=== PATIENT | female | born 1970 | race Caucasian/White ===

== ENCOUNTER 2016-03-02 08:31 | Emergency (ER) | payer OTHER ==
[~2016-03-02] VITALS: Ht 158.8 cm; Wt 99.3 kg
[~2016-03-02 08:31] MED LIST: ACET-1256 PO; CYAN3INJ IM; DOXE10CA PO; ENAL10TA PO; ERGO500037 PO; FERR325T51 PO; HYDR-3126 PO; HYDR-3785 PO; IBUP-1105 PO; LEVO137T3 PO; METO25TA56 PO; MIRT45TA3 PO; NRN/300 PO; SUMA100T16 PO; VENL100T2 PO; VNTHFA/IN INH
[2016-03-02 08:36] VITALS: TEMP 36.5; Ht 158.8 cm; Wt 99.3 kg
--- NOTE | 2016-03-02 09:20 | DIAGNOSTIC IMAGING REPORT ---
LEFT SHOULDER 3 VIEWS HISTORY: Left shoulder pain. COMPARISON: None. FINDINGS: There is no fracture or dislocation. Soft tissues are unremarkable. The left clavicle is intact. IMPRESSION: No fracture or dislocation within the left shoulder. Electronically signed by: Miguel Kern M.D. 03/02/2016 9:18 AM Dictated Date/Time: 03/02/2016 9:17 AM
[2016-03-02] MEDS ORDERED: HYDR-5688 PO (09:40)
[2016-03-02 09:47] VITALS: BP 135/98; PULSE 86; O2SAT 95
--- NOTE | 2016-03-02 17:39 | EMERGENCY ROOM VISIT NOTE ---
ED Visit Note First contact with patient: 08:46 CHIEF COMPLAINT: Left Shoulder injury HISTORY OF PRESENT ILLNESS: This 46-year-old white female patient fell onto the left shoulder earlier today with immediate onset of pain. There is limitation of motion of the arm because of the pain. The patient did not hear a cracking the sound at the time of the injury. The pain is moderate, constant and increases with motion of the hand and arm. No previous significant shoulder disease or injury. [id number]. REVIEW OF SYSTEM: HEENT: No dizziness, visual problems, hearing loss, or tinnitus. There is no difficulty swallowing and no oral lesions are present PULMONARY: No cough, shortness of breath, sputum production or hemoptysis. CARDIOVASCULAR: No chest pain, palpitations, shortness of breath or peripheral edema. GASTROINTESTINAL: No diarrhea, constipation, nausea, vomiting, or abdominal pain. GENITOURINARY: No dysuria, frequency, urgency or nocturia. NEUROLOGIC: No weakness, muscle tenderness, epilepsy or history of neurological problems. Positive history of chronic headaches. MUSCULOSKELETAL: No history of joint tenderness/swelling. No history of arthritis or arthralgias. SKIN: No rashes or lesions. ENDOCRINE: No history of diabetes or abnormal hair growth. PMH: Significant for anxiety, hypertension, hypothyroidism, obesity, asthma, chronic back pain, migraines, and depression Previous surgeries: Gastric bypass, back surgery Current medications: Filed in patient's chart Allergies: Macrobid, sulfa, adhesives SOCIAL HISTORY: Patient lives at home. Non-smoker, no excessive alcohol use. PHYSICAL EXAM: Vital Signs: Reviewed nurse's notes. Afebrile. General: Well- developed, well-nourished, middle-aged white female, in obvious discomfort. No acute distress. Sitting on a bed. Alert and oriented. Skin:Warm and dry with good turgor. No rashes or lesions. No ecchymosis or erythema. The patient is not diaphoretic. No abrasions. No edema. Musculoskeletal: The left shoulder is not swollen or deformed on inspection. The range of motion is limited because of the pain. Abduction of 90, forward flexion of the 100, external rotation of 45, internal rotation against the abdomen. Elbow exam is benign. There is no tenderness of the distal clavicle. No defect in the proximal or distal biceps tendon. Elbow exam is benign. The lungs are clear to auscultation. Neurologic: sensation to touch is intact on the the hand. Radial , median, and ulnar nerve functions are clearly intact. Peripheral pulses are 2 +. EMERGENCY DEPARTMENT COURSE: An X-ray of the shoulder does not show any fractures, dislocations, or other abnormality. DIAGNOSIS: Left Shoulder sprain DISCHARGE INSTRUCTIONS & TREATMENT: Patient was educated regarding today's findings. Conservative care measures were discussed. Sling was provided for comfort. Rest the arm in a sling until the pain subsides. Apply ice to the shoulder intermittently and frequently over the next 72 hours. Tylenol and Motrin every 6 hours if needed for mild pain. Prescription was provided for [place] 5 mg to be used every 6 hours as needed for severe pain. Driving precautions were given. See your own doctor or an orthopedic surgeon if you don 't seem to be improving in 4 - 5 days. Possibility of dislocation, subluxation , before meals joint separation, labral injury, contusion, and rotator cuff injury were considered. Problem List Medical Problems: (1) Anxiety Status: Chronic (2) Aortic aneurysm Status: Chronic (3) Bypass gastroenterostomy Status: Resolved (4) Chronic back pain Status: Chronic (5) Degenerative disc disease Status: Chronic (6) Depression Status: Chronic (7) Essential hypertension Status: Chronic (8) Herniated disc Status: Chronic (9) Hypothyroidism Status: Chronic (10) Migraines Status: Chronic (11) Rheumatoid arthritis Status: Chronic (12) Sciatica Status: Chronic Surgical Problems: (1) History of back surgery Status: Resolved Current/Historical Medications Scheduled Cyanocobalamin (Vitamin B-12 Inj), 1,000 MCG IM Q3 MONTHS Doxepin (Sinequan), 10 MG PO QPM Enalapril Maleate (Vasotec), 10 MG PO DAILY Ergocalciferol (Vitamin D 34455 Unit), 50,000 INTER.UNIT PO WK Ferrous Sulfate (Iron Supplement), 325 MG PO DAILY Gabapentin (Neurontin), 900 MG PO TID Hydroxyzine Hcl (Atarax), 100 MG PO HS Hydroxyzine Hcl (Atarax), 50 MG PO QAM Levothyroxine Sodium (Levothyroxine Sodium), 1 TAB PO DAILY Metoprolol Tartrate (Lopressor) (Lopressor), 25 MG PO DAILY Mirtazapine (Mirtazapine), 45 MG PO HS Venlafaxine Hcl (Effexor), 100 MG PO TID Scheduled PRN Acetaminophen (Tylenol), 1,000 MG PO Q4 PRN for Pain Albuterol Hfa (Ventolin Hfa), 1 PUFF INH UD PRN for Shortness of Breath Hydrocodone/Acetaminophen 5MG/325MG ([place] 5MG/325MG), 1-2 TABLET PO Q6H PRN for Pain Ibuprofen (Ibuprofen), 400 MG PO Q4 PRN for Pain Sumatriptan Succinate (Imitrex), 100 MG PO UD PRN for Migraine Allergies Coded Allergies: Nitrofurantoin (Verified Allergy, Intermediate, HIVES, 03/02/16) Adhesives (Verified Allergy, Unknown, TEARS AWAY LAYERS OF SKIN. CAN TOLERATE TEGA-DERM, 03/02/16) Sulfa Antibiotics (Unverified Allergy, Unknown, SPECIFIC DRUG NOT MENTIONED; JUST SULFA'S, 03/02/16) Vital Signs Date Time Temp Pulse Resp B/P Pulse Ox O2 Delivery O2 Flow Rate FiO2 03/02/16 09:47 86 20 135/98 95 03/02/16 08:36 36.5 87 18 156/98 95 Room Air Departure Information Impression Primary Impression: Left shoulder pain Additional Impression: Fall Dispostion Home / Self-Care Condition GOOD Prescriptions Hydrocodone/Acetaminophen 5MG/325MG ([place] 5MG/325MG) Tab 1-2 TABLET PO Q6H Y for Pain, #15 TAB For Initial Treatment Prov: Anjum Israel,P.A. 03/02/16 Referrals Gal Gentile, DO Forms HOME CARE DOCUMENTATION FORM, SPECIAL NARCOTICS INSTRUCTIONS, TYLENOL USE, IMPORTANT VISIT INFORMATION Patient Instructions [facility], [facility] Additional Instructions Call Dr. Gentile on Thursday for follow-up this week Use the sling as needed for comfort Gentle motion daily, including pendulum exercises Tylenol every 6 hours as needed for mild discomfort Substitute [place] one to 2 tablets every 6 hours as needed for more severe pain- no driving Return to the ED for any other concerns Ice to the shoulder intermittently as needed for any discomfort
[2016-08-12] MEDS ORDERED: FERR325T PO (16:27)
[2016-08-12] MEDS ORDERED: BND25 PO (16:27)
== END 2016-03-02 09:52 | disposition home or self-care (01) ==
LOC: C.EDB 08:32
DX: S43.402A Unspecified sprain of left shoulder joint, initial encounter (principal); W19.XXXA Unspecified fall, initial encounter; F41.9 Anxiety disorder, unspecified; E03.9 Hypothyroidism, unspecified; E66.9 Obesity, unspecified; J45.909 Unspecified asthma, uncomplicated; G43.909 Migraine, unspecified, not intractable, without status migrainosus; F32.9 Major depressive disorder, single episode, unspecified; I71.9 Aortic aneurysm of unspecified site, without rupture; Z98.84 Bariatric surgery status; M06.9 Rheumatoid arthritis, unspecified; M54.9 Dorsalgia, unspecified; G89.29 Other chronic pain; I10 Essential (primary) hypertension; Z79.899 Other long term (current) drug therapy

== ENCOUNTER → 2016-05-26 | Outpatient (CLI) | payer OTHER ==
[~2016-05-26] MED LIST changes: +AMOX875T PO; +CYAN10004 PO; +CYNI1000 INJ; +DIPH25CA5 PO; +FERR1TAB62 PO; +HYDR-5688 PO; +OXYC1TAB3 PO
--- NOTE | 2016-05-26 14:29 | DIAGNOSTIC IMAGING REPORT ---
RIGHT KNEE 1 OR 2 VIEWS ROUTINE CLINICAL HISTORY: PARONYCHIA OF GREAT TOE, L; R KNEE PAIN Right pain COMPARISON: None. DISCUSSION: Moderate degenerative change of all major joint compartments. Underlying chondrocalcinosis. Narrowing considered moderate of the medial compartment. No significant joint effusion. No acute bony abnormality. There is no evidence for soft tissue swelling. IMPRESSION: Moderate degenerative change of all major joint compartments. Chondrocalcinosis. Electronically signed by: Kvng Gagnon M.D. 05/26/2016 2:28 PM Dictated Date/Time: 05/26/2016 2:27 PM
--- NOTE | 2016-05-26 14:29 | DIAGNOSTIC IMAGING REPORT ---
RIGHT SHOULDER MIN 2 VIEWS ROUTINE CLINICAL HISTORY: Right shoulder pain. Traumatic arthropathy. COMPARISON: None. DISCUSSION: No fractures or dislocations are visualized. There are mild degenerative changes within the glenohumeral joint with mild humeral head spurring. IMPRESSION: Mild degenerative change. No acute fractures or dislocations identified. Electronically signed by: Markus Menchaca M.D. 05/26/2016 2:28 PM Dictated Date/Time: 05/26/2016 2:27 PM
== END | disposition home or self-care (01) ==
LOC: C.RAD1850 14:05
PROVIDERS: ATTEND Internal Medicine
DX: M11.261 Other chondrocalcinosis, right knee (principal); L03.032 Cellulitis of left toe; M12.511 Traumatic arthropathy, right shoulder

== ENCOUNTER 2016-06-27 19:37 | Emergency (ER) | payer OTHER ==
[~2016-06-27] VITALS: Ht 157.5 cm; Wt 101.2 kg
[~2016-06-27 19:37] MED LIST changes: -AMOX875T PO; -CYAN10004 PO; -CYNI1000 INJ; -DIPH25CA5 PO; -FERR1TAB62 PO; -OXYC1TAB3 PO
[2016-06-27 19:47] VITALS: BP 140/69; PULSE 102; TEMP 36.6; O2SAT 96; Ht 157.5 cm; Wt 101.2 kg
== END 2016-06-27 20:33 | disposition left against medical advice (07) ==
LOC: C.EDB 19:38 → C.EDD 20:33
DX: M25.561 Pain in right knee (principal)

== ENCOUNTER 2016-08-12 16:02 | Emergency (ER) | payer OTHER ==
[~2016-08-12] VITALS: Ht 157.5 cm; Wt 101.3 kg
[2016-08-12 16:08] VITALS: TEMP 36.7; Ht 157.5 cm; Wt 101.3 kg
[2016-08-12] MEDS ORDERED: DIPH25CA5 PO (16:27)
[2016-08-12] MEDS ORDERED: FERR1TAB62 PO (16:27)
[2016-08-12] MEDS ORDERED: CYNI1000 INJ (16:27)
[2016-08-12] MEDS ORDERED: HYDR-3126 PO (16:27)
[2016-08-12] MEDS ORDERED: OXYCODONE HCL IR 5 MG TAB (IMMEDIATE RELEASE) PO STA (16:27)
[2016-08-12] MEDS ORDERED: AMPICILLIN/SULBACTAM SOD INJ 3,000 MG in SODIUM CHLORIDE 0.9% 100ML 100 ML IV STA (16:27)
[2016-08-12] MEDS ORDERED: RABIES VACCINE (IMOVAX) HUMAN DIPL CELL 2.5 INTER.UNIT/ML SYR IM. ONE (16:30)
[2016-08-12] MEDS ORDERED: RABIES IMMUNE GLOBULIN (HUMAN) 150 INTER.UNIT/ML 2 ML VIAL IM. ONE (16:30)
[2016-08-12 16:50] LABS: BASO % 1.4 %; BASO ABS # 0.08 K/uL (0-0.2); COMPLETE YES; EOS % 4.8 %; HEMATOCRIT 43.8 % (37-47); IG% 0.2 %; LYMPH % 31.6 %; LYMPH ABS # 1.86 K/uL (1.2-3.4); MEAN CELL VOLUME 100.5 fL (80-100); MEAN CORPUSCULAR HEMOGLOBIN 31.2 pg (25-34); MEAN CORPUSCULAR HGB CONC 31.1 g/dl (32-36); MEAN PLATELET VOLUME 10.1 fL (7.4-10.4); MONO % 9.5 %; NEUT % 52.5 %; PLATELET COUNT 348 K/uL (130-400); RED BLOOD COUNT 4.36 M/uL (4.2-5.4); WHITE BLOOD COUNT 5.89 K/uL (4.8-10.8)
[2016-08-12 17:08] LABS: BUN/CREATININE RATIO 21.3 (10-20); CALCIUM 8.8 mg/dl (8.5-10.1); CREATININE 0.98 mg/dl (0.60-1.20); POTASSIUM 4.6 mmol/L (3.5-5.1)
--- NOTE | 2016-08-12 17:18 | DIAGNOSTIC IMAGING REPORT ---
LEFT THUMB 3 VIEWS HISTORY: Left thumb edema, erythema s/p bite from cat COMPARISON: None. FINDINGS: There is no fracture or dislocation. Mild soft tissue swelling. No radiopaque foreign bodies. IMPRESSION: No fractures. Mild soft tissue swelling. Electronically signed by: Miguel Kern M.D. 08/12/2016 5:17 PM Dictated Date/Time: 08/12/2016 5:16 PM
--- NOTE | 2016-08-12 17:19 | DIAGNOSTIC IMAGING REPORT ---
RIGHT KNEE 3 VIEWS HISTORY: Right knee pain Right COMPARISON: None. FINDINGS: There is no fracture or dislocation. No significant knee effusion. Chondrocalcinosis. Moderate osteoarthritis of the medial compartment of the right knee. Moderate osteoarthritis at the lateral and patellofemoral compartments. No radiopaque foreign bodies. IMPRESSION: 1. No fractures. 2. Mild to moderate osteoarthritis and chondrocalcinosis Electronically signed by: Miguel Kern M.D. 08/12/2016 5:18 PM Dictated Date/Time: 08/12/2016 5:17 PM
[2016-08-12] MEDS ORDERED: AMOXICIL/CLAVU 875MG HOME PACK PO STA (17:37)
[2016-08-12] MEDS ORDERED: OXYC1TAB3 PO (17:54)
[2016-08-12] MEDS ORDERED: AMOX875T PO (17:54)
--- NOTE | 2016-08-12 17:58 | EMERGENCY ROOM VISIT NOTE ---
History First contact with patient: 16:19 Chief Complaint: BITE Stated Complaint: CAT BITE ON LT THUMB AND SWELLING IN RT KNEE History of Present Illness The patient is a 46 year old female who presents to the Emergency Room via private vehicle accompanied by children with complaints of "Bite on left thumb and swelling and right knee". The patient states that this past weekend on Thursday she was [place] her friend[place], when one of their barn cats had something stuck under further for she was helping give the cat a bath. She states that while she was holding the cat it turned and bit her on the left thumb region as well as scratched her right anterior thigh. She is soaked her left thumb in Epsom salt intake and Benadryl without relief of the pain that she is experiencing and redness in the left hand. She leaves the cat was acting normally but is unsure of its rabies status. She denies any nausea or vomiting. Her tetanus is up-to-date. She also points to the right anterior knee of which is painful secondary to her falling after the cat bit her. She is not immunocompromised and has never had the rabies vaccination series. Review of Systems A complete 10-point Review of Systems was discussed with the patient, with pertinent positives and negatives listed in the History of Present Illness. All remaining Review of Systems questions can be considered negative unless otherwise specified. Past Medical/Surgical History Medical Problems: (1) Anxiety (2) Aortic aneurysm (3) Bypass gastroenterostomy (4) Chronic back pain (5) Degenerative disc disease (6) Depression (7) Essential hypertension (8) Herniated disc (9) History of suicidal ideation (10) Hypothyroidism (11) Migraines (12) PNA (pneumonia) (13) Rheumatoid arthritis (14) Sciatica (15) Ventral hernia Surgical Problems: (1) History of back surgery (2) History of cholecystectomy (3) History of gastric bypass (4) History of hysterectomy Family History Cancer Gallbladder disease Heart disease Hypertension Social History Smoking Status: Never Smoker Alcohol Use: none Marital Status: single, Housing Status: lives with family Occupation Status: unemployed Current/Historical Medications Scheduled Amoxicillin & Pot Clavulanate (Augmentin 875-125 mg), 1 TAB PO BID Cyanocobalamin (Cyanocobalamin), Unknown Dose INJ Q3MO Doxepin (Sinequan), 10 MG PO QPM Enalapril Maleate (Vasotec), 10 MG PO DAILY Ergocalciferol (Vitamin D 52182 Unit), 50,000 INTER.UNIT PO WK Ferrous Sulfate (Ferrous Sulfate), 325 MG PO DAILY Gabapentin (Neurontin), 900 MG PO TID Hydroxyzine Hcl (Atarax), 50 MG PO QAM Hydroxyzine Hcl (Atarax), 100 MG PO HS Levothyroxine Sodium (Levothyroxine Sodium), 1 TAB PO DAILY Metoprolol Tartrate (Lopressor) (Lopressor), 25 MG PO DAILY Mirtazapine (Mirtazapine), 45 MG PO HS Venlafaxine Hcl (Effexor), 100 MG PO TID Scheduled PRN Acetaminophen (Tylenol), 1,000 MG PO Q4 PRN for Pain Albuterol Hfa (Ventolin Hfa), 1 PUFF INH UD PRN for Shortness of Breath Diphenhydramine Hcl (Benadryl), 50 MG PO DIRECTED PRN for ALLERGIC REACTION Ibuprofen (Ibuprofen), 400 MG PO Q4 PRN for Pain Oxycodone Ir (Roxicodone Ir), 1-2 TAB PO Q4H PRN for Pain Sumatriptan Succinate (Imitrex), 100 MG PO UD PRN for Migraine Allergies Coded Allergies: Nitrofurantoin (Verified Allergy, Intermediate, HIVES, 08/12/16) Adhesives (Verified Allergy, Unknown, TEARS AWAY LAYERS OF SKIN. CAN TOLERATE TEGA-DERM, 08/12/16) Sulfa Antibiotics (Verified Allergy, Unknown, SPECIFIC DRUG NOT MENTIONED ; JUST SULFA'S, 08/12/16) Physical Exam Vital Signs Date Time Temp Pulse Resp B/P (MAP) Pulse Ox O2 Delivery O2 Flow Rate FiO2 08/12/16 18:15 86 18 115/87 97 08/12/16 17:30 83 18 104/88 97 Room Air 08/12/16 16:08 36.7 91 20 131/92 98 Room Air Physical Exam VITAL SIGNS - Vital signs and nursing notes were reviewed. Patient is afebrile , blood pressure 131/92, non-tachycardic and is saturating well on room air 98%. GENERAL -46-year-old female appearing her stated age who is in no acute distress. Communicates well with provider and answers questions appropriately. SKIN - Without rashes. HEAD - NC/AT. EXTREMITIES - No clubbing or peripheral cyanosis. No pretibial edema present. She is neurovascularly intact left upper extremity. Overlying the left dorsal aspect of the proximal thumb there is slight erythema localized to this region as well as tenderness to palpation. There is a minimal amount of edema. There are small punctate areas of which were believed to be healing cat bites. There is no lymphangitic streaking. The right anterior knee also slightly edematous with skin intact. There is a small superficial scratch on the right anterior thigh believed to be from the cat. +5/5 strength noted in UE/LE bilaterally. Medical Decision & Procedures ER Provider Diagnostic Interpretation: LEFT THUMB 3 VIEWS HISTORY: Left thumb edema, erythema s/p bite from cat COMPARISON: None. FINDINGS: There is no fracture or dislocation. Mild soft tissue swelling. No radiopaque foreign bodies. IMPRESSION: No fractures. Mild soft tissue swelling. Electronically signed by: Miguel Kern M.D. 08/12/2016 5:17 PM Dictated Date/Time: 08/12/2016 5:16 PM RIGHT KNEE 3 VIEWS HISTORY: Right knee pain Right COMPARISON: None. FINDINGS: There is no fracture or dislocation. No significant knee effusion. Chondrocalcinosis. Moderate osteoarthritis of the medial compartment of the right knee. Moderate osteoarthritis at the lateral and patellofemoral compartments. No radiopaque foreign bodies. IMPRESSION: 1. No fractures. 2. Mild to moderate osteoarthritis and chondrocalcinosis Electronically signed by: Miguel Kern M.D. 08/12/2016 5:18 PM Dictated Date/Time: 08/12/2016 5:17 PM Laboratory Results 08/12/16 16:42 Red Blood Count 4.36, Mean Corpuscular Volume 100.5, Mean Corpuscular Hemoglobin 31.2, Mean Corpuscular Hemoglobin Concent 31.1, Mean Platelet Volume 10.1, Neutrophils (%) (Auto) 52.5, Lymphocytes (%) (Auto) 31.6, Monocytes (%) ( Auto) 9.5, Eosinophils (%) (Auto) 4.8, Basophils (%) (Auto) 1.4, Neutrophils # ( Auto) 3.10, Lymphocytes # (Auto) 1.86, Monocytes # (Auto) 0.56, Eosinophils # ( Auto) 0.28, Basophils # (Auto) 0.08 08/12/16 16:42 Test 08/12/16 16:42 White Blood Count 5.89 K/uL (4.8-10.8) Red Blood Count 4.36 M/uL (4.2-5.4) Hemoglobin 13.6 g/dL (12.0-16.0) Hematocrit 43.8 % (37-47) Mean Corpuscular Volume 100.5 fL (80-100) Mean Corpuscular Hemoglobin 31.2 pg (25-34) Mean Corpuscular Hemoglobin Concent 31.1 g/dl (32-36) Platelet Count 348 K/uL (130-400) Mean Platelet Volume 10.1 fL (7.4-10.4) Neutrophils (%) (Auto) 52.5 % Lymphocytes (%) (Auto) 31.6 % Monocytes (%) (Auto) 9.5 % Eosinophils (%) (Auto) 4.8 % Basophils (%) (Auto) 1.4 % Neutrophils # (Auto) 3.10 K/uL (1.4-6.5) Lymphocytes # (Auto) 1.86 K/uL (1.2-3.4) Monocytes # (Auto) 0.56 K/uL (0.11-0.59) Eosinophils # (Auto) 0.28 K/uL (0-0.5) Basophils # (Auto) 0.08 K/uL (0-0.2) RDW Standard Deviation 54.3 fL (36.4-46.3) RDW Coefficient of Variation 14.9 % (11.5-14.5) Immature Granulocyte % (Auto) 0.2 % Immature Granulocyte # (Auto) 0.01 K/uL (0.00-0.02) Anion Gap 7.0 mmol/L (3-11) Est Creatinine Clear Calc Drug Dose 80.8 ml/min Estimated GFR () 80.7 Estimated GFR (Non- 69.7 BUN/Creatinine Ratio 21.3 (10-20) Calcium Level 8.8 mg/dl (8.5-10.1) Medications Administered Medications (Trade) Dose Ordered Sig/Quin Route Start Time Stop Time Status Last Admin Dose Admin Ampicillin Sodium/ Sulbactam Sodium 3000 mg/Sodium Chloride 108 ml @ 200 mls/hr NOW STAT IV 08/12/16 16:27 08/12/16 16:59 DC 6/20/17 17:17 200 MLS/HR Rabies Immune Globulin (Imogam Rabies Inj) 2,026 interunit ONCE ONCE IM. 08/12/16 16:30 08/12/16 16:33 DC 08/12/16 17:22 2,026 INTERUNIT Rabies Vaccine Human Diploid Cell (Imovax Rabies) 2.5 interunit ONCE ONCE IM. 08/12/16 16:30 08/12/16 16:33 DC 08/12/16 17:19 2.5 INTERUNIT Oxycodone HCl (Roxicodone Immediate Rel Tab) 5 mg NOW STAT PO 08/12/16 16:27 08/12/16 16:33 DC 08/12/16 17:17 5 MG Amoxicillin/ Clavulanate Potassium (Augmentin 875MG Home Pack) 1 homepack UD STAT PO 08/12/16 17:37 08/12/16 17:39 DC 08/12/16 17:37 1 HOMEPACK Medical Decision Patient was seen and evaluated as above. After obtaining a thorough history and physical examination it was apparent the patient was likely experiencing a localized cellulitis of the left thumb secondary to cat bite as well as right knee pain secondary to her fall. I discussed benefit versus risk of beginning the rabies series for prophylaxis and she would like to do so. She was given the appropriate medications to begin this today. Radiographs were obtained of the left thumb and were negative. Radiographs were also obtained of the right knee and were negative. She is given a knee immobilizer for the knee. For the rabies series I dosed the Imogam based upon her weights and Imovax vaccine based upon standard dosing. 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 This is very minimal at this time in my opinion does not meet inpatient criteria, however the patient was offered inpatient management and noted that she would like to try at home trial of oral antibiotics first. I do believe this is residual. She was given 3 g of Unasyn here via IV and will be discharged home on 10 days of Augmentin. She was certainly educated upon worrisome symptoms which to return, and was told that if her left hand erythema would worsen or her pain or any new/concerning symptoms were to develop she is to return immediately. She is to return on days outlined in her discharge instructions for subsequent rabies series. For her pain she will also be given a short-term prescription. In the evaluation. This patient following differential diagnoses were entertained: Cat bite, cellulitis, retained foreign body, fracture, among others. [place] Drug Monitoring Program Search Results: patient reviewed within database, no issues identified Impression Primary Impression: Bite by animal Additional Impressions: Cat bite Cellulitis Rabies, need for prophylactic vaccination against Knee pain, right Hand pain, left Departure Information Dispostion Home / Self-Care Condition GOOD Prescriptions Oxycodone Ir (Roxicodone Ir) 5 Mg Tab 1-2 TAB PO Q4H Y for Pain, #15 TAB For Initial Treatment Prov: Horacio Robbins PA-C 08/12/16 Amoxicillin & Pot Clavulanate (Augmentin 875-125 mg) 1 Tab Tab 1 TAB PO BID, #18 TAB Prov: Horacio Robbins PA-C 08/12/16 Referrals RV. Bauman MD (PCP) Vince Lott M.D. Patient Instructions [facility] Additional Instructions You have been treated in the Emergency Department for Knee Pain, hand pain, cellulitis (skin infection) as well as rabies vaccines. You have received pain medicine in the emergency department which impairs your ability to operate a vehicle. It is illegal for you to drive after receiving these medicines. You have been prescribed Oxy IR to be used for pain control. This is a narcotic medication. You cannot drive or consume alcohol while on this medicine. This medicine should only be used for pain that cannot be controlled with over-the- counter pain medicines. You have been prescribed Augmentin to be taken as prescribed. This is an antibiotic. All antibiotics have the potential to cause diarrhea. Stop this medication and contact a medical provider if you were to develop any significant adverse side effects including: wheezing, shortness of breath, passing out, vomiting, or a diffuse rash. Always take antibiotics as directed and COMPLETE the ENTIRE course regardless of the improvement of your symptoms. For pain control, you can use the following qrev-oxu-rluvlce medicines (if >12 yo): - Regular strength (325mg/tab) Tylenol (acetaminophen) 2 tabs every 4-6 hours as needed. Do not exceed 12 tablets in a 24 hour period. Avoid taking more than 3 grams (3000 mg) of Tylenol per day. This includes any other sources of acetaminophen you may take on a regular basis. - Regular strength (200 mg/tab) Advil (ibuprofen) 1-2 tabs every 4-6 hours as needed. Do not exceed a dose of 3200 mg per day. If this is a recent injury (<24 hrs), ice can be applied to the area of pain for the first 3 days to help decrease pain and inflammation. Ice massages can be performed by freezing water in a paper cup, peeling back the cup to expose the ice and then massaging over the affected area. You have been provided the number for an Orthopaedic Surgeon. You should call this number as soon as possible to establish a follow-up visit from today's Emergency Department visit. FOR RABIES: Today is day 0, Please return on days 3,7 and 14. This is August 15, , and August 26 for subsequent injections, If you develop worsening redness in the hand or fevers chills please return medially. As we discussed you' may require hospital admission at that time Keep the knee brace in place until cleared by Orthopedics. Try to keep ALL weight off of the knee until weight bearing is tolerable. Return to the Emergency Department if your current symptoms worsen despite treatment course outlined above. Please return to the emergency department with any new/concerning symptoms. Problem Qualifiers
[2016-08-12 18:15] VITALS: BP 115/87; PULSE 86; O2SAT 97
== END 2016-08-12 19:13 | disposition home or self-care (01) ==
LOC: C.EDB 16:03 → C.EDD 19:13
DX: S61.052A Open bite of left thumb without damage to nail, initial encounter (principal); L03.012 Cellulitis of left finger; W55.01XA Bitten by cat, initial encounter; M25.561 Pain in right knee; M79.643 Pain in unspecified hand; Z23 Encounter for immunization; Z20.3 Contact with and (suspected) exposure to rabies; I10 Essential (primary) hypertension; F32.9 Major depressive disorder, single episode, unspecified; E03.9 Hypothyroidism, unspecified; M06.9 Rheumatoid arthritis, unspecified; F41.9 Anxiety disorder, unspecified; G89.29 Other chronic pain; Z98.84 Bariatric surgery status; Z90.49 Acquired absence of other specified parts of digestive tract; Z90.710 Acquired absence of both cervix and uterus; Z98.890 Other specified postprocedural states; Z79.899 Other long term (current) drug therapy; Z88.2 Allergy status to sulfonamides; Z88.8 Allergy status to other drugs, medicaments and biological substances; Z91.09 Other allergy status, other than to drugs and biological substances; Z80.9 Family history of malignant neoplasm, unspecified; Z83.79 Family history of other diseases of the digestive system; Z82.49 Family history of ischemic heart disease and other diseases of the circulatory system

== ENCOUNTER 2016-08-15 17:59 | Emergency (ER) | payer OTHER ==
[~2016-08-15] VITALS: Ht 157.5 cm; Wt 101.7 kg
[~2016-08-15 17:59] MED LIST changes: +AMOX875T PO; -CYAN3INJ IM; +CYNI1000 INJ; +DIPH25CA5 PO; +FERR1TAB62 PO; -FERR325T51 PO; -HYDR-3785 PO; -HYDR-5688 PO; +OXYC1TAB3 PO
[2016-08-15 18:05] VITALS: BP 121/86; PULSE 80; TEMP 36.8; O2SAT 96; Ht 157.5 cm; Wt 101.7 kg
[2016-08-15] MEDS ORDERED: RABIES VACCINE (IMOVAX) HUMAN DIPL CELL 2.5 INTER.UNIT/ML SYR IM. ONE (18:30)
--- NOTE | 2016-08-15 22:06 | EMERGENCY ROOM VISIT NOTE ---
History First contact with patient: 18:14 Chief Complaint: RABIES VACCINE REPEAT VISIT Stated Complaint: CAT BITE - RABIES SHOT History of Present Illness The patient is a 46 year old female who presents to the Emergency Room for her second Imovax immunization. The patient was here 3 days ago after being bitten on the left thumb by a feral cat. The patient has been taking Augmentin antibiotics, and reports improving swelling and redness of the left thumb. She does report mild persistent pain rated a 4 out of 10. The patient is right-hand -dominant. Review of Systems 10 system review was performed and was negative except for pertinent positives and negatives as indicated in history of present illness Past Medical/Surgical History Medical Problems: (1) Anxiety (2) Aortic aneurysm (3) Bypass gastroenterostomy (4) Chronic back pain (5) Degenerative disc disease (6) Depression (7) Essential hypertension (8) Herniated disc (9) History of suicidal ideation (10) Hypothyroidism (11) Migraines (12) PNA (pneumonia) (13) Rheumatoid arthritis (14) Sciatica (15) Ventral hernia Surgical Problems: (1) History of back surgery (2) History of cholecystectomy (3) History of gastric bypass (4) History of hysterectomy Family History Cancer Gallbladder disease Heart disease Hypertension Social History Smoking Status: Never Smoker Alcohol Use: none Marital Status: single, Housing Status: lives with family Occupation Status: unemployed Current/Historical Medications Scheduled Amoxicillin & Pot Clavulanate (Augmentin 875-125 mg), 1 TAB PO BID Cyanocobalamin (Cyanocobalamin), Unknown Dose INJ Q3MO Doxepin (Sinequan), 10 MG PO QPM Enalapril Maleate (Vasotec), 10 MG PO DAILY Ergocalciferol (Vitamin D 72231 Unit), 50,000 INTER.UNIT PO WK Ferrous Sulfate (Ferrous Sulfate), 325 MG PO DAILY Gabapentin (Neurontin), 900 MG PO TID Hydroxyzine Hcl (Atarax), 50 MG PO QAM Hydroxyzine Hcl (Atarax), 100 MG PO HS Levothyroxine Sodium (Levothyroxine Sodium), 1 TAB PO DAILY Metoprolol Tartrate (Lopressor) (Lopressor), 25 MG PO DAILY Mirtazapine (Mirtazapine), 45 MG PO HS Venlafaxine Hcl (Effexor), 100 MG PO TID Scheduled PRN Acetaminophen (Tylenol), 1,000 MG PO Q4 PRN for Pain Albuterol Hfa (Ventolin Hfa), 1 PUFF INH UD PRN for Shortness of Breath Diphenhydramine Hcl (Benadryl), 50 MG PO DIRECTED PRN for ALLERGIC REACTION Ibuprofen (Ibuprofen), 400 MG PO Q4 PRN for Pain Oxycodone Ir (Roxicodone Ir), 1-2 TAB PO Q4H PRN for Pain Sumatriptan Succinate (Imitrex), 100 MG PO UD PRN for Migraine Allergies Coded Allergies: Nitrofurantoin (Verified Allergy, Intermediate, HIVES, 08/12/16) Adhesives (Verified Allergy, Unknown, TEARS AWAY LAYERS OF SKIN. CAN TOLERATE TEGA-DERM, 08/12/16) Sulfa Antibiotics (Verified Allergy, Unknown, SPECIFIC DRUG NOT MENTIONED ; JUST SULFA'S, 08/12/16) Physical Exam Vital Signs Date Time Temp Pulse Resp B/P (MAP) Pulse Ox O2 Delivery O2 Flow Rate FiO2 08/15/16 18:05 36.8 80 20 121/86 96 Room Air Pain Rating (0-10): 0 Physical Exam CONSTITUTIONAL: Healthy and well nourished. Alert and oriented X 3 with positive affect. She does not appear in any acute distress. HEENT: Normocephalic, atraumatic. Pupils equal, round and reactive. NECK: Full active range of motion without discomfort. MUSCULOSKELETAL: Examination of the left hand shows mild persistent erythema and edema at the base of the thumb. Patient is able to flex and extend the thumb without any significant discomfort. She has no tenderness to palpation through the extensor tendons of the thumb, and has no worsening pain with flexion or extension of the wrist. Capillary refill of the thumb is less than 2 seconds. INTEGUMENTARY: No rash or other significant dermatologic conditions noted. NEUROLOGIC: No focal neurologic deficits noted. Left thumb is sensory intact. Medical Decision & Procedures Medications Administered Medications (Trade) Dose Ordered Sig/Quin Route Start Time Stop Time Status Last Admin Dose Admin Rabies Vaccine Human Diploid Cell (Imovax Rabies) 2.5 interunit ONCE ONCE IM. 08/15/16 18:30 08/15/16 18:31 DC 08/15/16 18:57 2.5 INTERUNIT ED Course Patient history and physical exam was performed. Nurse's notes were reviewed. Examination of the left thumb to show an improving cellulitis. She was instructed to continue and finish all Augmentin antibiotics as prescribed. The patient was administered Imovax without adverse reaction. She will return on days 7 for her next Imovax injection, sooner with any worsening infection. The patient was happy with plan of care, and denied any pain at the time of discharge. Medical Decision Impression Primary Impression: Need for prophylactic vaccination against rabies Additional Impression: Cat bite of left hand with infection Departure Information Dispostion Home / Self-Care Condition GOOD Forms HOME CARE DOCUMENTATION FORM, IMPORTANT VISIT INFORMATION Patient Instructions My [facility] Additional Instructions Return on 08/19 for your next Imovax immunization Complete all Augmentin antibiotics as previously prescribed Problem Qualifiers Additional Impression: Cat bite of left hand with infection Encounter type: subsequent encounter Qualified Codes: S61.452D - Open bite of left hand, subsequent encounter; L08.9 - Local infection of the skin and subcutaneous tissue, unspecified; W55.01XD - Bitten by cat, subsequent encounter
== END 2016-08-15 19:04 | disposition home or self-care (01) ==
LOC: C.EDB 18:02 → C.EDD 19:04
DX: Z23 Encounter for immunization (principal); Z20.3 Contact with and (suspected) exposure to rabies; S61.452D Open bite of left hand, subsequent encounter; L08.9 Local infection of the skin and subcutaneous tissue, unspecified; W55.01XD Bitten by cat, subsequent encounter; I10 Essential (primary) hypertension; E03.9 Hypothyroidism, unspecified; F41.9 Anxiety disorder, unspecified; F32.9 Major depressive disorder, single episode, unspecified; Z87.01 Personal history of pneumonia (recurrent); Z90.49 Acquired absence of other specified parts of digestive tract; Z90.710 Acquired absence of both cervix and uterus; Z98.84 Bariatric surgery status; Z98.890 Other specified postprocedural states; Z82.49 Family history of ischemic heart disease and other diseases of the circulatory system; Z79.899 Other long term (current) drug therapy

== ENCOUNTER 2016-08-20 16:11 | Emergency (ER) | payer OTHER ==
[~2016-08-20] VITALS: Ht 157.5 cm; Wt 101.2 kg
[~2016-08-20 16:11] MED LIST changes: +BND25 PO; -DIPH25CA5 PO; -FERR1TAB62 PO; +FERR325T PO
[2016-08-20 16:15] VITALS: TEMP 37.2; Ht 157.5 cm; Wt 101.2 kg
--- NOTE | 2016-08-20 16:25 | EMERGENCY ROOM VISIT NOTE ---
History First contact with patient: 16:17 Chief Complaint: RABIES VACCINE REPEAT VISIT Stated Complaint: 2ND RABIES VACCINE History of Present Illness The patient is a 46 year old female who presents to the Emergency Room for her third Imovax injection. The patient denies any adverse reactions. She is continuing with her oral Augmentin antibiotics, and reports improvement of her left hand. Review of Systems 6 system review was performed and was negative except for pertinent positives and negatives as indicated in history of present illness Past Medical/Surgical History Medical Problems: (1) Anxiety (2) Aortic aneurysm (3) Bypass gastroenterostomy (4) Chronic back pain (5) Degenerative disc disease (6) Depression (7) Essential hypertension (8) Herniated disc (9) History of suicidal ideation (10) Hypothyroidism (11) Migraines (12) PNA (pneumonia) (13) Rheumatoid arthritis (14) Sciatica (15) Ventral hernia Surgical Problems: (1) History of back surgery (2) History of cholecystectomy (3) History of gastric bypass (4) History of hysterectomy Family History Cancer Gallbladder disease Heart disease Hypertension Social History Smoking Status: Never Smoker Alcohol Use: none Marital Status: single, Housing Status: lives with family Occupation Status: unemployed Current/Historical Medications Scheduled Amoxicillin & Pot Clavulanate (Augmentin 875-125 mg), 1 TAB PO BID Cyanocobalamin (Cyanocobalamin), Unknown Dose INJ Q3MO Doxepin (Sinequan), 10 MG PO QPM Enalapril Maleate (Vasotec), 10 MG PO DAILY Ergocalciferol (Vitamin D 44680 Unit), 50,000 INTER.UNIT PO WK Ferrous Sulfate (Ferrous Sulfate), 325 MG PO DAILY Gabapentin (Neurontin), 900 MG PO TID Hydroxyzine Hcl (Atarax), 50 MG PO QAM Hydroxyzine Hcl (Atarax), 100 MG PO HS Levothyroxine Sodium (Levothyroxine Sodium), 1 TAB PO DAILY Metoprolol Tartrate (Lopressor) (Lopressor), 25 MG PO DAILY Mirtazapine (Mirtazapine), 45 MG PO HS Venlafaxine Hcl (Effexor), 100 MG PO TID Scheduled PRN Acetaminophen (Tylenol), 1,000 MG PO Q4 PRN for Pain Albuterol Hfa (Ventolin Hfa), 1 PUFF INH UD PRN for Shortness of Breath Diphenhydramine Hcl (Benadryl), 50 MG PO DIRECTED PRN for ALLERGIC REACTION Ibuprofen (Ibuprofen), 400 MG PO Q4 PRN for Pain Oxycodone Ir (Roxicodone Ir), 1-2 TAB PO Q4H PRN for Pain Sumatriptan Succinate (Imitrex), 100 MG PO UD PRN for Migraine Allergies Coded Allergies: Nitrofurantoin (Verified Allergy, Intermediate, HIVES, 08/12/16) Adhesives (Verified Allergy, Unknown, TEARS AWAY LAYERS OF SKIN. CAN TOLERATE TEGA-DERM, 08/12/16) Sulfa Antibiotics (Verified Allergy, Unknown, SPECIFIC DRUG NOT MENTIONED ; JUST SULFA'S, 08/12/16) Physical Exam Vital Signs Date Time Temp Pulse Resp B/P (MAP) Pulse Ox O2 Delivery O2 Flow Rate FiO2 08/20/16 16:15 37.2 93 16 159/99 97 Room Air Physical Exam CONSTITUTIONAL: Healthy and well nourished. MUSCULOSKELETAL: Examination of the left hand does not show any soft tissue edema or erythema at the base of the thumb when compared to my evaluation of the patient 4 days ago. She has full range of motion of the thumb without discomfort. Capillary refill is less than 2 seconds. INTEGUMENTARY: No rash or other significant dermatologic conditions noted. NEUROLOGIC: No focal neurologic deficits noted. Left thumb is sensory intact. Medical Decision & Procedures ED Course Patient history and physical exam were performed. Nurse's notes were reviewed. Review medical records shows that the patient is 24 hours late with her third (day 7) Imovax injection, with today being day 8. The patient was instructed to continue with her previous schedule and return visit on 08/26/16. The patient was administered Imovax without adverse reaction. Medical Decision Impression Primary Impression: Need for prophylactic vaccination against rabies Additional Impression: Cat bite of left hand with infection Departure Information Dispostion Home / Self-Care Referrals RV. Bauman MD (PCP) Forms HOME CARE DOCUMENTATION FORM, IMPORTANT VISIT INFORMATION Patient Instructions My [facility] Additional Instructions Return on 08/26 for your fourth and final Imovax injection Problem Qualifiers Additional Impression: Cat bite of left hand with infection Encounter type: subsequent encounter Qualified Codes: S61.452D - Open bite of left hand, subsequent encounter; L08.9 - Local infection of the skin and subcutaneous tissue, unspecified; W55.01XD - Bitten by cat, subsequent encounter
[2016-08-20] MEDS ORDERED: RABIES VACCINE (IMOVAX) HUMAN DIPL CELL 2.5 INTER.UNIT/ML SYR IM. ONE (16:30)
[2016-08-20 16:58] VITALS: BP 132/93; PULSE 86; O2SAT 96
== END 2016-08-20 16:59 | disposition home or self-care (01) ==
LOC: C.EDB 16:12 → C.EDD 16:59
DX: Z23 Encounter for immunization (principal); Z20.3 Contact with and (suspected) exposure to rabies; S61.452D Open bite of left hand, subsequent encounter; L08.9 Local infection of the skin and subcutaneous tissue, unspecified; W55.01XD Bitten by cat, subsequent encounter; F41.9 Anxiety disorder, unspecified; I71.9 Aortic aneurysm of unspecified site, without rupture; M54.9 Dorsalgia, unspecified; G89.29 Other chronic pain; F32.9 Major depressive disorder, single episode, unspecified; I10 Essential (primary) hypertension; E03.9 Hypothyroidism, unspecified; M06.9 Rheumatoid arthritis, unspecified; K43.9 Ventral hernia without obstruction or gangrene; Z98.84 Bariatric surgery status; Z90.710 Acquired absence of both cervix and uterus

== ENCOUNTER 2016-08-27 16:11 | Emergency (ER) | payer OTHER ==
[~2016-08-27] VITALS: Ht 157.5 cm; Wt 101.2 kg
[~2016-08-27 16:11] MED LIST changes: -AMOX875T PO
[2016-08-27 16:33] VITALS: BP 116/83; PULSE 75; TEMP 36.8; O2SAT 96; Ht 157.5 cm; Wt 101.2 kg
--- NOTE | 2016-08-27 16:43 | EMERGENCY ROOM VISIT NOTE ---
ED Visit Note First contact with patient: 16:37 CHIEF COMPLAINT: "Third rabies vaccine HISTORY OF PRESENT ILLNESS: This 46-year-old female patient presents to the emergency department via private vehicle for their last rabies shot. The patient has not had any complications from the previous injections. They deny any other complaints. REVIEW OF SYSTEMS: A 6 system review of systems was completed with positives and pertinent negatives listed in the HPI. ALLERGIES: As noted below MEDICATIONS: As noted below PMH: Unchanged from previous visit. PHYSICAL EXAM: Vital Signs: Reviewed Nurse's notes, vital signs stable. GENERAL : 46-year-old female, in no acute distress, well-developed, well-nourished. SKIN: Normal. The previous region of the dog bite is healing well. EMERGENCY DEPARTMENT COURSE: I examined the patient. The patient was given Imovax 1ml IM. The patient was observed for 20 minutes with no reaction. The patient was discharged home in stable condition. This is the last injection of the patient's series, she is one day late and states that she did not want to come in on August 26. Problem List Medical Problems: (1) Anxiety Status: Chronic (2) Aortic aneurysm Status: Chronic (3) Bypass gastroenterostomy Status: Resolved (4) Chronic back pain Status: Chronic (5) Degenerative disc disease Status: Chronic (6) Depression Status: Chronic (7) Essential hypertension Status: Chronic (8) Herniated disc Status: Chronic (9) Hypothyroidism Status: Chronic (10) Migraines Status: Chronic (11) Rheumatoid arthritis Status: Chronic (12) Sciatica Status: Chronic Surgical Problems: (1) History of back surgery Status: Resolved Current/Historical Medications Scheduled Cyanocobalamin (Cyanocobalamin), Unknown Dose INJ Q3MO Doxepin (Sinequan), 10 MG PO QPM Enalapril Maleate (Vasotec), 10 MG PO DAILY Ergocalciferol (Vitamin D 73560 Unit), 50,000 INTER.UNIT PO WK Ferrous Sulfate (Ferrous Sulfate), 325 MG PO DAILY Gabapentin (Neurontin), 900 MG PO TID Hydroxyzine Hcl (Atarax), 50 MG PO QAM Hydroxyzine Hcl (Atarax), 100 MG PO HS Levothyroxine Sodium (Levothyroxine Sodium), 137 MG PO DAILY Metoprolol Tartrate (Lopressor) (Lopressor), 25 MG PO DAILY Mirtazapine (Mirtazapine), 45 MG PO HS Venlafaxine Hcl (Effexor), 100 MG PO TID Scheduled PRN Acetaminophen (Tylenol), 1,000 MG PO Q4 PRN for Pain Albuterol Hfa (Ventolin Hfa), 1 PUFF INH UD PRN for Shortness of Breath Diphenhydramine Hcl (Benadryl), 50 MG PO DIRECTED PRN for ALLERGIC REACTION Ibuprofen (Ibuprofen), 400 MG PO Q4 PRN for Pain Sumatriptan Succinate (Imitrex), 100 MG PO UD PRN for Migraine Allergies Coded Allergies: Nitrofurantoin (Verified Allergy, Intermediate, HIVES, 08/27/16) Adhesives (Verified Allergy, Unknown, TEARS AWAY LAYERS OF SKIN. CAN TOLERATE TEGA-DERM, 08/27/16) Sulfa Antibiotics (Verified Allergy, Unknown, SPECIFIC DRUG NOT MENTIONED ; JUST SULFA'S, 08/27/16) Vital Signs Date Time Temp Pulse Resp B/P (MAP) Pulse Ox O2 Delivery O2 Flow Rate FiO2 08/27/16 16:33 36.8 75 18 116/83 96 Room Air Medications Administered Medications (Trade) Dose Ordered Sig/Quin Route Start Time Stop Time Status Last Admin Dose Admin Rabies Vaccine Human Diploid Cell (Imovax Rabies) 2.5 interunit ONCE ONCE IM. 08/27/16 16:45 08/27/16 16:46 DC 08/27/16 16:53 2.5 INTERUNIT Departure Information Impression Primary Impression: Need for prophylactic vaccination against rabies Dispostion Home / Self-Care Condition GOOD Referrals RV. Bauman MD (PCP) Patient Instructions My [facility] Additional Instructions You were seen in the emergency department for the last rabies vaccination injection. Please continue to watch for signs of infection at the site where you're bitten , to include redness, swelling, drainage from the site. Please call your family doctor to schedule follow-up if your left hand pain persists. Please return to emergency department with any new/concerning symptoms.
[2016-08-27] MEDS ORDERED: RABIES VACCINE (IMOVAX) HUMAN DIPL CELL 2.5 INTER.UNIT/ML SYR IM. ONE (16:45)
== END 2016-08-27 16:57 | disposition home or self-care (01) ==
LOC: C.EDB 16:12 → C.EDD 16:57
DX: Z20.3 Contact with and (suspected) exposure to rabies (principal); Z23 Encounter for immunization; F41.9 Anxiety disorder, unspecified; I71.9 Aortic aneurysm of unspecified site, without rupture; F32.9 Major depressive disorder, single episode, unspecified; I10 Essential (primary) hypertension; E03.9 Hypothyroidism, unspecified; G43.909 Migraine, unspecified, not intractable, without status migrainosus; M06.9 Rheumatoid arthritis, unspecified; M54.30 Sciatica, unspecified side; Z79.899 Other long term (current) drug therapy

== ENCOUNTER → 2016-10-01 | Outpatient (CLI) | payer OTHER ==
[~2016-10-01] MED LIST changes: +CYAN10004 PO; -OXYC1TAB3 PO
[2016-10-01 09:39] LABS: BASO % 0.9 %; BASO ABS # 0.06 K/uL (0-0.2); COMPLETE YES; EOS % 4.7 %; HEMATOCRIT 41.9 % (37-47); IG% 0.3 %; LYMPH % 33.2 %; LYMPH ABS # 2.19 K/uL (1.2-3.4); MEAN CORPUSCULAR HEMOGLOBIN 32.2 pg (25-34); MEAN CORPUSCULAR HGB CONC 32.2 g/dl (32-36); MEAN PLATELET VOLUME 11.1 fL (7.4-10.4); MONO % 13.8 %; NEUT % 47.1 %; PLATELET COUNT 305 K/uL (130-400); RED BLOOD COUNT 4.19 M/uL (4.2-5.4)
[2016-10-01 09:54] LABS: ALT/SGPT 25 U/L (12-78); AST/SGOT 15 U/L (15-37); BLOOD UREA NITROGEN 21 mg/dl (7-18); BUN/CREATININE RATIO 15.8 (10-20); CALCIUM 8.9 mg/dl (8.5-10.1); CARBON DIOXIDE 25 mmol/L (21-32); CHLORIDE 106 mmol/L (98-107); GLUCOSE 101 mg/dl (70-99); POTASSIUM 4.3 mmol/L (3.5-5.1); SODIUM 137 mmol/L (136-145)
[2016-10-01 10:07] LABS: ALKALINE PHOSPHATASE 123 U/L (45-117); CHOLESTEROL 224 mg/dl (0-200); CHOLESTEROL/HDL RATIO 1.8; HDL CHOLESTEROL 127 mg/dl; LDL CHOLESTEROL CALCULATED 65 mg/dl; TRIGLYCERIDES 161 mg/dl (0-150); VERY LOW DENSITY LIPOPROT CALC 32 mg/dl
== END | disposition home or self-care (01) ==
LOC: C.LAB1850 07:21
PROVIDERS: ATTEND Internal Medicine
DX: I10 Essential (primary) hypertension (principal); D64.9 Anemia, unspecified; E03.9 Hypothyroidism, unspecified; E53.8 Deficiency of other specified B group vitamins; E55.9 Vitamin D deficiency, unspecified

== ENCOUNTER → 2016-10-03 | Outpatient (CLI) | payer OTHER ==
[~2016-10-03] MED LIST changes: +OPTIRAY 320 IV PRN
--- NOTE | 2016-10-03 14:29 | DIAGNOSTIC IMAGING REPORT ---
CHEST ANGIO WITH CONTRAST HISTORY: 46 years-old Female presents with acute aortic aneurysm follow-up COMPARISON: CTA of the chest 08/09/2015 TECHNIQUE: CT angiography of the chest was obtained following the intravenous administration of 92 mL Optiray 320. 3-D coronal and sagittal MIPS were obtained from the axial data set enhancement for review. A dose lowering technique was used consistent with the principals of NAKUL. FINDINGS: CTA CHEST: Heart is normal in size without pericardial effusion. Evaluation of the aortic root is mildly limited secondary to cardiac motion. The descending thoracic aorta measures up to 3.7 x 3.7 cm in AP and transverse dimension, unchanged from comparison study. There is no associated dissection. Imaged great vessels are patent. The opacified pulmonary arterial tree is unremarkable. The imaged proximal branch arterial vessels in the upper abdomen are patent. CT CHEST: No dominant thyroid nodule. There is no pathologic adenopathy about the chest. There is no pneumothorax, pleural effusion or focal airspace consolidation. There is minimal dependent subsegmental bibasilar atelectasis with minimal mosaic attenuation suggesting air trapping. The airways are patent. Imaged upper abdominal structures are within normal limits. Surgically absent gallbladder. Lobulated renal parenchyma is seen bilaterally, likely lobulations. There is convex right curvature of the midthoracic spine. Multilevel endplate spurring is seen throughout the spine. IMPRESSION: 1. Mild dilation of the ascending thoracic aorta is again seen, unchanged from comparison study measuring up to 3.7 cm in greatest dimension. No associated dissection or significant atherosclerotic vascular disease. 2. No acute intrathoracic abnormality. The above report was generated using voice recognition software. It may contain grammatical, syntax or spelling errors. Electronically signed by: Curt Allen M.D. 10/03/2016 2:28 PM Dictated Date/Time: 10/03/2016 2:21 PM
== END | disposition home or self-care (01) ==
LOC: C.CTS 13:14
PROVIDERS: ATTEND Internal Medicine
DX: I71.9 Aortic aneurysm of unspecified site, without rupture (principal)

== ENCOUNTER 2016-11-20 16:52 | Emergency (ER) | payer OTHER ==
[~2016-11-20] VITALS: Ht 157.5 cm; Wt 100.0 kg
[~2016-11-20 16:52] MED LIST changes: -CYAN10004 PO; -OPTIRAY 320 IV PRN
[2016-11-20 16:53] VITALS: TEMP 36.8; Ht 157.5 cm; Wt 100.0 kg
[2016-11-20] MEDS ORDERED: CYAN10004 PO (17:14)
[2016-11-20] MEDS ORDERED: LIDOCAINE/EPINEPHRINE 1% 20 ML VIAL INFIL ONE (17:15)
--- NOTE | 2016-11-20 17:15 | EMERGENCY ROOM VISIT NOTE ---
ED Visit Note First contact with patient: 16:57 Chief Complaint: Left Hand Laceration History of Present Illness: This patient is a 46-year-old female who presents to the Emergency Department coming ambulatory, for evaluation of their hand laceration. Patient sustained the laceration while cutting an avocado, and attempting to remove the pit. The incident occurred approximately 4 hours ago They report a moderate amount of bleeding initially. They deny any numbness or tingling into the distal extremity. They report no decreased range of motion of the hand or digits. They have tried nothing for the pain. Patient rates her current discomfort as a 5/10. Patient denies significant bleeding, redness, puslike drainage, or other associated symptoms. Patient's Tetanus status is currently up-to-date. Medications: Please see list. I did personally review the patient's medication list with her at bedside Allergies: Adhesives, Bactrim, Macrobid PMH: Hypertension, hypothyroidism, depression, degenerative disc disease, fibromyalgia, arthritis, gastric bypass, hernia SHx: The patient lives locally with family. She denies drug, alcohol, tobacco use. ROS: A complete 6 point review of systems was reviewed with the patient with pertinent positives and negatives as per history of present illness. All else were negative. Physical Exam: VITAL SIGNS - Vital signs and nursing notes were reviewed. GENERAL -46-year-old female appearing her stated age who is in no acute distress. Communicates well with provider and answers questions appropriately. SKIN - There is a 1 cm long laceration noted on the anterior aspect of the left palm. This is in the center of the palm, distal to the third digit. The edges do gape apart with traction. No foreign bodies appreciated. Upon further examination there are no deep structures including vessel, tendon, or bony structures appreciated. There is no active bleeding noted. MUSCULOSKELETAL - Laceration as described above. +5/5 strength appreciated of the affected digit. NEUROLOGIC - Spinothalamic tract was found to be intact with ability to discriminate sharp versus dull sensation at the level of hip joint down do the great toe. No sensory defects of the dorsal column were appreciated utilizing light touch for evaluation. VASCULAR - Capillary refill was <2 seconds. ED Course: Patient was seen and evaluated by myself. Benefits of performing primary wound closure versus no repair were discussed with the patient who verbalizes understanding. Verbal consent was obtained prior to performing the procedure. 3 cc of 1% lidocaine with epinephrine was used to anesthetize the hand laceration. The wound was cleansed and prepped in the typical sterile fashion utilizing normal saline and Betadine. The wound was sterilely draped. Once proper anesthetization was established, the wound was further examined and demonstrated no foreign body or pus like drainage. The wound was copiously irrigated with normal saline and Betadine. The wound was closed using 3 simple, 5-0 nylon sutures with the wound edges being well approximated. Patient tolerated the procedure well. No complications were met. The wound was cleansed and dressed with a Bacitracin dressing. Patient educated on worrisome symptoms for return visit to the Emergency Department. Patient discharged to home in good condition. I attest that I have personally reviewed the patient's current medication list. Patient was found to have normal blood pressure on screening and does not require follow-up. DIFFERENTIAL DIAGNOSIS: Laceration, abrasion, contusion, foreign body, and others. Impression: Left Hand Laceration Discharge Instructions: You have received 3 sutures on your left hand. These sutures are NOT dissolvable and WILL need to be removed by a health care provider in 8 to 10 days. You can return to the Emergency Department or contact your Primary Care Provider to have the sutures removed. Proper wound care is essential for adequate wound healing and infection prevention. You can shower and clean the wound with soap and water. Do not scour over the wound, pat dry with a towel. Do not submerse the wound (i.e. bathe or DISH WASH) until the sutures have been removed. You can use an antibiotic ointment with a dressing over the wound for the next 3-4 days. After this time you may leave the wound dry and open to the air. If crust develops over the wound you can use a Q-tip to apply a 1:1 peroxide:water solution to clean the wound. Look for signs of infection of the wound including: increased pain, swelling, foul discharge, streaking, or increased temperature. If any of these are noticed you should return to the Emergency Department for further assessment and treatment. As with any laceration you may have received nerve damage to the surrounding tissues. This damage may or may not be permanent. You should keep the area covered with sunscreen for the first 6 months to 1 year when at risk for exposure to help minimize scarring. You can also use scar reducing creams or Vitamin E oil to help minimize scarring. For pain control, you can use the following hefr-pes-kwhlwnh medicines (if >12 yo): - Regular strength (325mg/tab) Tylenol (acetaminophen) 2 tabs every 4-6 hours as needed. Do not exceed 9 tablets in a 24 hour period. Avoid taking more than 3 grams (3000 mg) of Tylenol per day. This includes any other sources of acetaminophen you may take on a regular basis. - Regular strength (200 mg/tab) Advil (ibuprofen) 1-2 tabs every 4-6 hours as needed. Do not exceed a dose of 2400 mg per day. Return to the emergency department if your symptoms worsen despite treatment course outlined above. Problem List Medical Problems: (1) Anxiety Status: Chronic (2) Aortic aneurysm Status: Chronic (3) Bypass gastroenterostomy Status: Resolved (4) Chronic back pain Status: Chronic (5) Degenerative disc disease Status: Chronic (6) Depression Status: Chronic (7) Essential hypertension Status: Chronic (8) Herniated disc Status: Chronic (9) Hypothyroidism Status: Chronic (10) Migraines Status: Chronic (11) Rheumatoid arthritis Status: Chronic (12) Sciatica Status: Chronic Surgical Problems: (1) History of back surgery Status: Resolved Current/Historical Medications Scheduled Cyanocobalamin (Cyanocobalamin), Unknown Dose INJ Q3MO Cyanocobalamin (Vitamin B-12 1000 Mcg), 1,000 MCG PO DAILY Doxepin (Sinequan), 10 MG PO QPM Enalapril Maleate (Vasotec), 10 MG PO DAILY Ferrous Sulfate (Ferrous Sulfate), 325 MG PO DAILY Gabapentin (Neurontin), 900 MG PO TID Hydroxyzine Hcl (Atarax), 50 MG PO QAM Hydroxyzine Hcl (Atarax), 100 MG PO HS Levothyroxine Sodium (Levothyroxine Sodium), 137 MG PO DAILY Metoprolol Tartrate (Lopressor) (Lopressor), 25 MG PO DAILY Mirtazapine (Mirtazapine), 45 MG PO HS Venlafaxine Hcl (Effexor), 100 MG PO TID Scheduled PRN Acetaminophen (Tylenol), 1,000 MG PO Q4 PRN for Pain Albuterol Hfa (Ventolin Hfa), 1 PUFF INH UD PRN for Shortness of Breath Diphenhydramine Hcl (Benadryl), 50 MG PO DIRECTED PRN for ALLERGIC REACTION Ibuprofen (Ibuprofen), 400 MG PO Q4 PRN for Pain Sumatriptan Succinate (Imitrex), 100 MG PO UD PRN for Migraine Allergies Coded Allergies: Nitrofurantoin (Verified Allergy, Intermediate, HIVES, 11/20/16) Adhesives (Verified Allergy, Unknown, TEARS AWAY LAYERS OF SKIN. CAN TOLERATE TEGA-DERM, 11/20/16) Sulfa Antibiotics (Verified Allergy, Unknown, SPECIFIC DRUG NOT MENTIONED ; JUST SULFA'S, 11/20/16) Vital Signs Date Time Temp Pulse Resp B/P (MAP) Pulse Ox O2 Delivery O2 Flow Rate FiO2 11/20/16 16:53 36.8 95 18 133/86 93 Room Air Departure Information Impression Primary Impression: Laceration of hand Dispostion Home / Self-Care Condition GOOD Referrals RV. Bauman MD (PCP) Patient Instructions ED Laceration Ext Sutr Stap Tape, [facility] Additional Instructions You have received 3 sutures on your left hand. These sutures are NOT dissolvable and WILL need to be removed by a health care provider in 8 to 10 days. You can return to the Emergency Department or contact your Primary Care Provider to have the sutures removed. Proper wound care is essential for adequate wound healing and infection prevention. You can shower and clean the wound with soap and water. Do not scour over the wound, pat dry with a towel. Do not submerse the wound (i.e. bathe or DISH WASH) until the sutures have been removed. You can use an antibiotic ointment with a dressing over the wound for the next 3-4 days. After this time you may leave the wound dry and open to the air. If crust develops over the wound you can use a Q-tip to apply a 1:1 peroxide:water solution to clean the wound. Look for signs of infection of the wound including: increased pain, swelling, foul discharge, streaking, or increased temperature. If any of these are noticed you should return to the Emergency Department for further assessment and treatment. As with any laceration you may have received nerve damage to the surrounding tissues. This damage may or may not be permanent. You should keep the area covered with sunscreen for the first 6 months to 1 year when at risk for exposure to help minimize scarring. You can also use scar reducing creams or Vitamin E oil to help minimize scarring. For pain control, you can use the following gjaz-zbw-viketjl medicines (if >12 yo): - Regular strength (325mg/tab) Tylenol (acetaminophen) 2 tabs every 4-6 hours as needed. Do not exceed 9 tablets in a 24 hour period. Avoid taking more than 3 grams (3000 mg) of Tylenol per day. This includes any other sources of acetaminophen you may take on a regular basis. - Regular strength (200 mg/tab) Advil (ibuprofen) 1-2 tabs every 4-6 hours as needed. Do not exceed a dose of 2400 mg per day. Return to the emergency department if your symptoms worsen despite treatment course outlined above. Problem Qualifiers Primary Impression: Laceration of hand Encounter type: initial encounter Foreign body presence: without foreign body Laterality: left Qualified Codes: S61.412A - Laceration without foreign body of left hand, initial encounter
[2016-11-20 17:52] VITALS: BP 121/85; PULSE 88; O2SAT 96
== END 2016-11-20 17:52 | disposition home or self-care (01) ==
LOC: C.EDB 16:53 → C.EDD 17:52
DX: S61.412A Laceration without foreign body of left hand, initial encounter (principal); W26.0XXA Contact with knife, initial encounter; I10 Essential (primary) hypertension; E03.9 Hypothyroidism, unspecified; F32.9 Major depressive disorder, single episode, unspecified; M79.7 Fibromyalgia; M19.90 Unspecified osteoarthritis, unspecified site; F41.9 Anxiety disorder, unspecified; I71.9 Aortic aneurysm of unspecified site, without rupture

== ENCOUNTER → 2017-01-27 | Outpatient (CLI) | payer OTHER ==
[~2017-01-27] MED LIST changes: -BND25 PO; +CYAN10004 PO; +DIPH25CA5 PO; -ERGO500037 PO; +FERR1TAB62 PO; -FERR325T PO
[2017-01-27 16:51] LABS: ALT/SGPT 25 U/L (12-78); AST/SGOT 12 U/L (15-37); BLOOD UREA NITROGEN 22 mg/dl (7-18); BUN/CREATININE RATIO 22.2 (10-20); CALCIUM 8.8 mg/dl (8.5-10.1); CARBON DIOXIDE 26 mmol/L (21-32); CHLORIDE 108 mmol/L (98-107); CREATININE 0.97 mg/dl (0.60-1.20); GLUCOSE 97 mg/dl (70-99); POTASSIUM 4.3 mmol/L (3.5-5.1); SODIUM 138 mmol/L (136-145)
[2017-01-27 16:53] LABS: ALKALINE PHOSPHATASE 105 U/L (45-117); CHOLESTEROL 200 mg/dl (0-200); CHOLESTEROL/HDL RATIO 2.5; HDL CHOLESTEROL 80 mg/dl; LDL CHOLESTEROL CALCULATED 76 mg/dl; TRIGLYCERIDES 218 mg/dl (0-150); VERY LOW DENSITY LIPOPROT CALC 44 mg/dl
== END | disposition home or self-care (01) ==
LOC: C.LAB1850 15:05
PROVIDERS: ATTEND Internal Medicine
DX: G89.29 Other chronic pain (principal); I10 Essential (primary) hypertension

== ENCOUNTER 2017-04-13 17:03 | Emergency (ER) | payer OTHER ==
[~2017-04-13] VITALS: Ht 157.5 cm; Wt 106.4 kg
[2017-04-13 17:06] VITALS: Ht 157.5 cm; Wt 106.4 kg
[2017-04-13] MEDS ORDERED: ALBUT/IPRATROP 3MG/0.5MG NEB 3 ML VIAL INH STA (19:47)
[2017-04-13] MEDS ORDERED: METHYLPREDNISOLONE 125 MG VIAL IV STA (19:50)
--- NOTE | 2017-04-13 20:04 | EMERGENCY ROOM VISIT NOTE ---
History Report prepared by Vladimir: Gianfranco Fernandez Under the Supervision of: Dr. Bridgette Meyers M.D. First contact with patient: 19:43 Chief Complaint: FLU LIKE SX Stated Complaint: CANT SWALLOW,HARD TO BREATH DEEP History of Present Illness The patient is a 47 year old female who presents to the Emergency Room with complaints of a worsening cough beginning 1.5 weeks ago. The patient states she later developed chest tightness and shortness of breath because of her cough. She reports she cannot sleep at night because of her cough, and she has developed diarrhea. The patient notes she has a history of bilateral pneumonia last year where she was hospitalized for two weeks. She states she does not know if she has had a fever because she is having hot flashes secondary to menopause. The patient reports her son tested positive for the flu. She notes she did receive a flu shot this year. The patient states she has a history of hypertension, an underactive thyroid, vitamin D deficiency, vitamin B deficiency , depression, degenerative disk disease, and fibromyalgia. She notes she is on supplements for her thyroid, vitamin D deficiency, and vitamin B deficiency. The patient reports she also has a history of an aortic aneurysm that was found two years ago. She states he father of an aortic aneurysm rupture. The patient denies vomiting. Source of History: patient Onset: 1.5 weeks ago Position: other (global) Quality: other (cough) Timing: worsening Associated Symptoms: + chest pain (tightness), + SOB, + diarrhea, No fevers , No vomiting Review of Systems See HPI for pertinent positives & negatives. A total of 10 systems reviewed and were otherwise negative. Past Medical & Surgical Medical Problems: (1) Anxiety (2) Aortic aneurysm (3) Bypass gastroenterostomy (4) Chronic back pain (5) Degenerative disc disease (6) Depression (7) Essential hypertension (8) Herniated disc (9) History of suicidal ideation (10) Hypothyroidism (11) Migraines (12) PNA (pneumonia) (13) Rheumatoid arthritis (14) Sciatica (15) Ventral hernia Surgical Problems: (1) History of back surgery (2) History of cholecystectomy (3) History of gastric bypass (4) History of hysterectomy Family History Cancer Gallbladder disease Heart disease Hypertension Social History Smoking Status: Never Smoker Alcohol Use: none Marital Status: single, Housing Status: lives with family Occupation Status: unemployed Current/Historical Medications Scheduled Cyanocobalamin (Cyanocobalamin), Unknown Dose INJ Q3MO Cyanocobalamin (Vitamin B-12 1000 Mcg), 1,000 MCG PO DAILY Doxepin (Sinequan), 10 MG PO QPM Enalapril Maleate (Vasotec), 10 MG PO DAILY Ferrous Sulfate (Ferrous Sulfate), 325 MG PO DAILY Gabapentin (Neurontin), 900 MG PO TID Hydroxyzine Hcl (Atarax), 50 MG PO QAM Hydroxyzine Hcl (Atarax), 100 MG PO HS Levothyroxine Sodium (Levothyroxine Sodium), 137 MG PO DAILY Metoprolol Tartrate (Lopressor) (Lopressor), 25 MG PO DAILY Mirtazapine (Mirtazapine), 45 MG PO HS Prednisone (Prednisone), 40 MG PO DAILY Pregabalin (Lyrica), 25 MG PO BID Venlafaxine Hcl (Effexor), 100 MG PO TID Scheduled PRN Acetaminophen (Tylenol), 1,000 MG PO Q4 PRN for Pain Albuterol Hfa (Ventolin Hfa), 1 PUFF INH UD PRN for Shortness of Breath Benzonatate (Tessalon Perles), 200 MG PO Q8 PRN for Cough Diphenhydramine Hcl (Benadryl), 50 MG PO DIRECTED PRN for ALLERGIC REACTION Ibuprofen (Ibuprofen), 400 MG PO Q4 PRN for Pain Sumatriptan Succinate (Imitrex), 100 MG PO UD PRN for Migraine Allergies Coded Allergies: Nitrofurantoin (Verified Allergy, Intermediate, HIVES, 11/20/16) Adhesives (Verified Allergy, Unknown, TEARS AWAY LAYERS OF SKIN. CAN TOLERATE TEGA-DERM, 11/20/16) Sulfa Antibiotics (Verified Allergy, Unknown, SPECIFIC DRUG NOT MENTIONED ; JUST SULFA'S, 11/20/16) Physical Exam Vital Signs Date Time Temp Pulse Resp B/P (MAP) Pulse Ox O2 Delivery O2 Flow Rate FiO2 04/13/17 22:45 36.9 94 20 169/100 99 04/13/17 20:53 94 04/13/17 17:06 36.9 88 20 169/100 99 Room Air Physical Exam Vital signs reviewed. General: Well-appearing, obese, 47 year old female, in no significant distress. Dry bronchospastic cough. HEENT: No scleral icterus, PERRLA, neck supple. Atraumatic. Cardiovascular: Regular rate and rhythm, no extra sounds. Pulmonary: Clear to auscultation bilaterally, normal work of breathing. Dry bronchospastic cough. Abdomen: Soft, nontender, nondistended, positive bowel sounds. Musculoskeletal: Atraumatic, Minimal peripheral edema. Neurologic: Patient awake alert and oriented x 3, full strength in all 4 extremities. Cranial nerves 2 through 12 grossly intact. Skin: Warm, dry, no rash Medical Decision & Procedures ER Provider Diagnostic Interpretation: X-ray results as stated below per interpretation by me and the radiologist: CHEST ONE VIEW PORTABLE CLINICAL HISTORY: cough dyspnea COMPARISON STUDY: 05/07/2015 FINDINGS: The bones soft tissues and hemidiaphragms are normal. The cardiomediastinal silhouette is normal. The lungs are clear. The pulmonary vasculature is normal. IMPRESSION: Negative chest. The above report was generated using voice recognition software. It may contain grammatical, syntax or spelling errors. Electronically signed by: Kvng Gagnon M.D. 04/13/2017 8:02 PM Dictated Date/Time: 04/13/2017 8:01 PM Laboratory Results 04/13/17 20:20 Red Blood Count 3.89, Mean Corpuscular Volume 99.7, Mean Corpuscular Hemoglobin 32.9, Mean Corpuscular Hemoglobin Concent 33.0, Mean Platelet Volume 10.7, Neutrophils (%) (Auto) 67.8, Lymphocytes (%) (Auto) 19.9, Monocytes (%) (Auto) 8.0, Eosinophils (%) (Auto) 3.8, Basophils (%) (Auto) 0.4, Neutrophils # (Auto) 4.97, Lymphocytes # (Auto) 1.46, Monocytes # (Auto) 0.59, Eosinophils # (Auto) 0.28, Basophils # (Auto) 0.03 04/13/17 20:20 Test 04/13/17 20:20 04/13/17 20:23 04/13/17 20:26 White Blood Count 7.34 K/uL (4.8-10.8) Red Blood Count 3.89 M/uL (4.2-5.4) Hemoglobin 12.8 g/dL (12.0-16.0) Hematocrit 38.8 % (37-47) Mean Corpuscular Volume 99.7 fL (80-100) Mean Corpuscular Hemoglobin 32.9 pg (25-34) Mean Corpuscular Hemoglobin Concent 33.0 g/dl (32-36) Platelet Count 229 K/uL (130-400) Mean Platelet Volume 10.7 fL (7.4-10.4) Neutrophils (%) (Auto) 67.8 % Lymphocytes (%) (Auto) 19.9 % Monocytes (%) (Auto) 8.0 % Eosinophils (%) (Auto) 3.8 % Basophils (%) (Auto) 0.4 % Neutrophils # (Auto) 4.97 K/uL (1.4-6.5) Lymphocytes # (Auto) 1.46 K/uL (1.2-3.4) Monocytes # (Auto) 0.59 K/uL (0.11-0.59) Eosinophils # (Auto) 0.28 K/uL (0-0.5) Basophils # (Auto) 0.03 K/uL (0-0.2) RDW Standard Deviation 45.6 fL (36.4-46.3) RDW Coefficient of Variation 12.5 % (11.5-14.5) Immature Granulocyte % (Auto) 0.1 % Immature Granulocyte # (Auto) 0.01 K/uL (0.00-0.02) Anion Gap 8.0 mmol/L (3-11) Est Creatinine Clear Calc Drug Dose 90.6 ml/min Estimated GFR () 90.1 Estimated GFR (Non- 77.7 BUN/Creatinine Ratio 17.3 (10-20) Calcium Level 8.9 mg/dl (8.5-10.1) Total Bilirubin 0.3 mg/dl (0.2-1) Direct Bilirubin < 0.1 mg/dl (0-0.2) Aspartate Amino Transf (AST/SGOT) 21 U/L (15-37) Alanine Aminotransferase (ALT/SGPT) 22 U/L (12-78) Alkaline Phosphatase 163 U/L (45-117) Total Protein 6.8 gm/dl (6.4-8.2) Albumin 3.2 gm/dl (3.4-5.0) Influenza Type A (RT-PCR) Neg for Influ A (NEG) Influenza Type B (RT-PCR) Neg for Influ B (NEG) Bedside Troponin I 0.030 ng/ml (0-0.045) Laboratory results per my review. Medications Administered Medications (Trade) Dose Ordered Sig/Quin Route Start Time Stop Time Status Last Admin Dose Admin Albuterol/ Ipratropium (Duoneb) 3 ml NOW STAT INH 04/13/17 19:47 04/13/17 19:50 DC 04/13/17 20:32 3 ML Methylprednisolone Sodium Succinate (Solu-Medrol IV) 125 mg NOW STAT IV 04/13/17 19:50 04/13/17 19:51 DC 04/13/17 19:50 125 MG ECG Per My Interpretation Indication: SOB/dyspnea Rate (beats per minute): 79 Rhythm: normal sinus Findings: no acute ischemic change, no ectopy, other (Normal intervals, normal axis) ED Course 1945: Past medical records reviewed. The patient was evaluated in room B05. A complete history and physical examination was performed. 1946: Ordered Duoneb 3ml INH 1949: Ordered Solu-Medrol IV 125mg IV 2154: Upon reevaluation, the patient appeared to have improvement of her symptoms. I discussed findings with her. She states the nebulizer helped. The patient verbalized agreement of the treatment plan. She was discharged home. Medical Decision Differential diagnoses: Influenza, other viral illness, pneumonia, urinary tract infection, metabolic abnormality, medication effect, cellulitis, meningitis, intra-abdominal source. This patient was evaluated and appeared to be in some discomfort. The patient was evaluated and appeared to have some respiratory discomfort. She is wheezing with a dry bronchospastic cough. Patient was given a DuoNeb treatment and IV Solu-Medrol. Chest x-ray was performed and is clear. Influenza swab was obtained and is negative. I do suspect a viral etiology and reactive airway disease. Patient was discharged with a prednisone prescription, Tessalon Perles and an albuterol inhaler. Medication Reconcilliation Current Medication List: was personally reviewed by me Blood Pressure Screening Patient's blood pressure: Elevated blood pressure Blood pressure disposition: Referred to PCP Impression Primary Impression: Reactive airway disease Additional Impression: Influenza-like symptoms Scribe Attestation The scribe's documentation has been prepared under my direction and personally reviewed by me in its entirety. I confirm that the note above accurately reflects all work, treatment, procedures, and medical decision making performed by me. Departure Information Dispostion Home / Self-Care Prescriptions Prednisone (Prednisone) 20 Mg Tab 40 MG PO DAILY, #8 TAB Prov: Bridgette Meyers M.D. 04/13/17 Benzonatate (Tessalon Perles) 200 Mg Cap 200 MG PO Q8 Y for Cough, #20 CAP Prov: Bridgette Meyers M.D. 04/13/17 Referrals RV. Bauman MD (PCP) Forms HOME CARE DOCUMENTATION FORM, IMPORTANT VISIT INFORMATION Patient Instructions My [facility] Additional Instructions Diagnosis: Reactive airway disease, influenza-like symptoms Tylenol 650 mg every 6 hours as needed for pain or fever. Prednisone 40 mg daily for 4 more days. Benadryl 25-50 mg at night as needed for sleep. Albuterol 2 puffs every 4 hours as needed for wheezing or cough. Tessalon Perles 200 mg every 8 hours as needed for cough. Follow up with your doctor this week for reevaluation. Problem Qualifiers
[2017-04-13] MEDS ORDERED: PREG1CAP36 PO (20:30)
[2017-04-13 20:33] LABS: BASO % 0.4 %; BASO ABS # 0.03 K/uL (0-0.2); EOS % 3.8 %; EOS ABS # 0.28 K/uL (0-0.5); HEMATOCRIT 38.8 % (37-47); HEMOGLOBIN 12.8 g/dL (12.0-16.0); IG# 0.01 K/uL (0.00-0.02); LYMPH % 19.9 %; LYMPH ABS # 1.46 K/uL (1.2-3.4); MEAN CELL VOLUME 99.7 fL (80-100); MEAN CORPUSCULAR HEMOGLOBIN 32.9 pg (25-34); MEAN PLATELET VOLUME 10.7 fL (7.4-10.4); MONO ABS # 0.59 K/uL (0.11-0.59); NEUT % 67.8 %; NEUT ABS # 4.97 K/uL (1.4-6.5); PLATELET COUNT 229 K/uL (130-400); RED CELL DISTRIBUTION WIDTH CV 12.5 % (11.5-14.5); RED CELL DISTRIBUTION WIDTH SD 45.6 fL (36.4-46.3); WHITE BLOOD COUNT 7.34 K/uL (4.8-10.8)
[2017-04-13 20:46] LABS: ALBUMIN 3.2 gm/dl (3.4-5.0); ALT/SGPT 22 U/L (12-78); BLOOD UREA NITROGEN 15 mg/dl (7-18); CALCIUM 8.9 mg/dl (8.5-10.1); CARBON DIOXIDE 26 mmol/L (21-32); CREATININE 0.89 mg/dl (0.60-1.20); GLUCOSE 101 mg/dl (70-99); POTASSIUM 4.1 mmol/L (3.5-5.1); SODIUM 140 mmol/L (136-145)
[2017-04-13 20:49] LABS: ALKALINE PHOSPHATASE 163 U/L (45-117); AST/SGOT 21 U/L (15-37); TOTAL PROTEIN 6.8 gm/dl (6.4-8.2)
[2017-04-13 21:45] LABS: INFLUENZA A PCR Neg for Influ A (NEG); INFLUENZA B PCR Neg for Influ B (NEG)
[2017-04-13] MEDS ORDERED: PRED20TA PO (22:13)
[2017-04-13] MEDS ORDERED: BENZ1CAP90 PO (22:13)
[2017-04-13] MEDS ORDERED: ALBUTEROL HFA 8 GM INHALER INH ONE (22:36)
[2017-04-13 22:45] VITALS: BP 169/100; PULSE 94; TEMP 36.9; O2SAT 99
== END 2017-04-13 22:47 | disposition home or self-care (01) ==
LOC: C.EDB 17:04
DX: J44.9 Chronic obstructive pulmonary disease, unspecified (principal); R05 Cough; F41.9 Anxiety disorder, unspecified; I71.9 Aortic aneurysm of unspecified site, without rupture; I10 Essential (primary) hypertension; E03.9 Hypothyroidism, unspecified

== ENCOUNTER → 2017-10-16 | Outpatient (CLI) | payer OTHER ==
[~2017-10-16] MED LIST changes: +PREG1CAP36 PO
[2017-10-16 17:17] LABS: BASO ABS # 0.06 K/uL (0-0.2); EOS % 2.7 %; EOS ABS # 0.17 K/uL (0-0.5); HEMATOCRIT 42.3 % (37-47); HEMOGLOBIN 13.2 g/dL (12.0-16.0); IG# 0.01 K/uL (0.00-0.02); LYMPH % 34.1 %; LYMPH ABS # 2.11 K/uL (1.2-3.4); MEAN CELL VOLUME 101.7 fL (80-100); MEAN CORPUSCULAR HEMOGLOBIN 31.7 pg (25-34); MEAN CORPUSCULAR HGB CONC 31.2 g/dl (32-36); MEAN PLATELET VOLUME 11.3 fL (7.4-10.4); MONO % 9.2 %; MONO ABS # 0.57 K/uL (0.11-0.59); NEUT % 52.8 %; NEUT ABS # 3.27 K/uL (1.4-6.5); PLATELET COUNT 335 K/uL (130-400); RED CELL DISTRIBUTION WIDTH CV 15.2 % (11.5-14.5); RED CELL DISTRIBUTION WIDTH SD 56.6 fL (36.4-46.3); WHITE BLOOD COUNT 6.19 K/uL (4.8-10.8)
[2017-10-16 18:00] LABS: ALBUMIN 3.7 gm/dl (3.4-5.0); ALKALINE PHOSPHATASE 111 U/L (45-117); ALT/SGPT 23 U/L (12-78); AST/SGOT 16 U/L (15-37); BLOOD UREA NITROGEN 16 mg/dl (7-18); CALCIUM 8.9 mg/dl (8.5-10.1); CARBON DIOXIDE 24 mmol/L (21-32); CHOLESTEROL 180 mg/dl (0-200); CREATININE 0.89 mg/dl (0.60-1.20); GLUCOSE 91 mg/dl (70-99); LDL CHOLESTEROL CALCULATED 71 mg/dl; POTASSIUM 4.3 mmol/L (3.5-5.1); SODIUM 139 mmol/L (136-145); TOTAL PROTEIN 7.3 gm/dl (6.4-8.2); TRANSFERRIN 273 mg/dl (200-360)
== END | disposition home or self-care (01) ==
LOC: C.LAB1850 14:55
PROVIDERS: ATTEND Internal Medicine
DX: I10 Essential (primary) hypertension (principal); E53.8 Deficiency of other specified B group vitamins; D64.9 Anemia, unspecified; D55.9 Anemia due to enzyme disorder, unspecified; F41.9 Anxiety disorder, unspecified; Z98.0 Intestinal bypass and anastomosis status

== ENCOUNTER 2020-09-21 06:14 | Observation (INO) ==
--- NOTE | 2020-09-07 10:10 | PAT Medication Instructions ---
Medication Instructions Date of Service September 07, 2020 Home Medications Medication Instructions Recorded venlafaxine 100 mg tablet 100 mg PO TID #90 tab 11/29/19 albuterol sulfate 90 mcg/actuation 2 puff INHALATION Q6H PRN #6.7 gm 04/13/20 aerosol inhaler gabapentin 300 mg capsule 600 mg PO TID #180 cap 06/12/20 montelukast 10 mg tablet 10 mg PO QPM #90 tab 08/13/20 ondansetron HCl 4 mg tablet 4 mg PO DAILY PRN #30 tab 08/20/20 sumatriptan succinate 100 mg tablet 100 mg PO .COMPLEX #9 tab 08/22/20 ferrous sulfate 325 mg (65 mg iron) tablet 325 mg PO QAM venlafaxine 100 mg tablet 100 mg PO TID albuterol sulfate 90 mcg/actuation aerosol inhaler 2 puff INHALATION Q6H PRN gabapentin 300 mg capsule 600 mg PO TID montelukast 10 mg tablet 10 mg PO QPM ondansetron HCl 4 mg tablet 4 mg PO DAILY PRN sumatriptan succinate 100 mg tablet 100 mg PO .COMPLEX acetaminophen 650 mg tablet,extended release 1,950 mg PO TID chlorpheniramine maleate 4 mg tablet 4 mg PO Q4H PRN cholecalciferol (vitamin D3) 25 mcg (1,000 unit) tablet 1,000 unit PO QAM clobetasol 0.05 % topical cream 1 appln TOP BID PRN cyanocobalamin (vitamin B-12) 1,000 mcg capsule 1,000 mcg PO QAM diphenhydramine HCl 25 mg capsule (Benadryl) 25 mg PO TID PRN doxepin 25 mg capsule 25 mg PO HS hydroxyzine HCl 50 mg tablet 100 mg PO BID PRN ibuprofen 200 mg tablet 800 mg PO BID PRN levothyroxine 137 mcg tablet 137 mcg PO QAM losartan 25 mg tablet 25 mg PO QAM metoprolol succinate 25 mg tablet,extended release 24 hr 25 mg PO QAM mirtazapine 45 mg tablet 45 mg PO HS omeprazole 10 mg capsule,delayed release 10 mg PO QAM ASK your surgeon for instructions ibuprofen 200 mg tablet 800 mg PO BID PRN STOP taking 24 hours before surgery clobetasol 0.05 % topical cream 1 appln TOP BID PRN DO NOT take the morning of surgery ferrous sulfate 325 mg (65 mg iron) tablet 325 mg PO QAM chlorpheniramine maleate 4 mg tablet 4 mg PO Q4H PRN cholecalciferol (vitamin D3) 25 mcg (1,000 unit) tablet 1,000 unit PO QAM cyanocobalamin (vitamin B-12) 1,000 mcg capsule 1,000 mcg PO QAM diphenhydramine HCl 25 mg capsule (Benadryl) 25 mg PO TID PRN hydroxyzine HCl 50 mg tablet 100 mg PO BID PRN losartan 25 mg tablet 25 mg PO QAM Take morning of surgery With a small sip of water, OTHERWISE NOTHING TO EAT OR DRINK AFTER MIDNIGHT: venlafaxine 100 mg tablet 100 mg PO TID albuterol sulfate 90 mcg/actuation aerosol inhaler 2 puff INHALATION Q6H PRN (use if needed; please bring rescue inhaler with you to hospital day of surgery if possible) gabapentin 300 mg capsule 600 mg PO TID ondansetron HCl 4 mg tablet 4 mg PO DAILY PRN (if needed) sumatriptan succinate 100 mg tablet 100 mg PO .COMPLEX (if needed) acetaminophen 650 mg tablet,extended release 1,950 mg PO TID (okay to take up to 4 hours prior to surgery if needed) levothyroxine 137 mcg tablet 137 mcg PO QAM metoprolol succinate 25 mg tablet,extended release 24 hr 25 mg PO QAM omeprazole 10 mg capsule,delayed release 10 mg PO QAM Take evening before surgery venlafaxine 100 mg tablet 100 mg PO TID albuterol sulfate 90 mcg/actuation aerosol inhaler 2 puff INHALATION Q6H PRN (if needed) gabapentin 300 mg capsule 600 mg PO TID montelukast 10 mg tablet 10 mg PO QPM ondansetron HCl 4 mg tablet 4 mg PO DAILY PRN (if needed) sumatriptan succinate 100 mg tablet 100 mg PO .COMPLEX (if needed) acetaminophen 650 mg tablet,extended release 1,950 mg PO TID chlorpheniramine maleate 4 mg tablet 4 mg PO Q4H PRN (if needed) diphenhydramine HCl 25 mg capsule (Benadryl) 25 mg PO TID PRN (if needed) doxepin 25 mg capsule 25 mg PO HS hydroxyzine HCl 50 mg tablet 100 mg PO BID PRN (if needed) mirtazapine 45 mg tablet 45 mg PO HS Other Notes If you have any questions please call us at [phone] or [phone] or [phone] or [phone]
--- NOTE | 2020-09-12 09:45 | Anesthesiology Consultation ---
Date of Service September 12, 2020 Assessment & Plan (1) Encounter for pre-operative examination: - COVID screening: Per assessment on 09/12: Travel screen negative, no known COVID-19 positive contacts or current COVID-19 related symptoms. Patient vaccinated. Surgeon arranging preop COVID testing. Awaiting results. - Vascular office visit (12/07/19): Hx of a "thoracic ascending aortic aneurysm of 3.7 cm. Patient states that she was informed of this about 3 or 4 years ago and has been undergoing annual surveillance CT scans.. Reviewed the patient's recent imaging over the past few years.. Indicates stability of this thoracic ascending aortic aneurysm.. Recommend patient undergo reevaluation with a transthoracic echocardiogram in 2 years." - PCP telehealth visit (09/11/20): Chronic medical conditions addressed. Aware of upcoming surgery. "Reported ongoing pain in her right shoulder and right knee. Recently evaluated by orthopedic provider and completed MRI August 29, 2020 noted tear in her titer cuff right-sided but no surgery was recommended if she is able to bear with pain. Additionally she reported difficulty with discomfort in her right knee and surgery is planted for right knee replacement on September 21, 2020. She reported preop testing to be completed September 12, 2020. She will complete blood test for her chronic medical conditions already ordered in her chart possibly the same day when she is completing preop testing.. thoracic aortic aneurysm evaluated by vascular surgery and 2020 recommended 2 years for follow- up given stability of the condition. She is currently on beta-court and ARB and blood pressure so far is been well controlled. She denies to have any chest pain chest discomfort shortness of breath or palpitations." Chart Review Chart Review: Acceptable Risk for Surgery (pending evaluation AM DOS) and Patient seen in Pre Admission Testing Teaching & Discussion Pre-Anesthesia Teaching/Discussion Notes: Instructed NPO after midnight before surgery,except medications with 15 cc of water. Medication instructions provided according to the PAT guidelines. History Surgery Operation Date: 09/21/20 11:25 Proposed Procedures p Right Total Knee Arthroplasty - Gal Gentile DO Height/Weight Height: 5 ft 2 in Weight: 112.1 kg Allergies Allergy/AdvReac Type Severity Reaction Status Date / Time nitrofurantoin Allergy Intermediate Hives Verified 09/10/20 13:20 adhesive Allergy Unknown Skin Verified 09/10/20 13:20 tearing (can toleratere tega-derm) Sulfa (Sulfonamide Allergy Unknown Rash Verified 09/10/20 13:20 Antibiotics) enalapril AdvReac Unknown Cough Verified 09/10/20 13:20 pine trees Allergy Unknown Itching, Uncoded 09/10/20 13:20 sneezing Medications Home Medications Medication Instructions Recorded Confirmed Last Taken ferrous sulfate 325 mg (65 mg 325 mg PO QAM #30 tab 11/10/18 09/11/20 Unknown iron) tablet venlafaxine 100 mg tablet 100 mg PO TID #90 tab 11/29/19 09/11/20 Unknown albuterol sulfate 90 mcg/actuation 2 puff INHALATION Q6H PRN #6.7 gm 04/13/20 09/11/20 Unknown aerosol inhaler montelukast 10 mg tablet 10 mg PO QPM #90 tab 08/13/20 09/11/20 Unknown ondansetron HCl 4 mg tablet 4 mg PO DAILY PRN #30 tab 08/20/20 09/11/20 Unknown sumatriptan succinate 100 mg tablet 100 mg PO .COMPLEX #9 tab 08/22/20 09/11/20 Unknown acetaminophen 650 mg 1,950 mg PO TID 09/04/20 09/11/20 Unknown tablet,extended release chlorpheniramine maleate 4 mg 4 mg PO Q4H PRN 09/04/20 09/11/20 Unknown tablet cholecalciferol (vitamin D3) 25 1,000 unit PO QAM 09/04/20 09/11/20 Unknown mcg (1,000 unit) tablet clobetasol 0.05 % topical cream 1 appln TOP BID PRN 09/04/20 09/11/20 Unknown cyanocobalamin (vitamin B-12) 1,000 mcg PO QAM 09/04/20 09/11/20 Unknown 1,000 mcg capsule diphenhydramine HCl 25 mg capsule 25 mg PO TID PRN 09/04/20 09/11/20 Unknown (Benadryl) doxepin 25 mg capsule 25 mg PO HS 09/04/20 09/11/20 Unknown hydroxyzine HCl 50 mg tablet 100 mg PO BID PRN 09/04/20 09/11/20 Unknown ibuprofen 200 mg tablet 800 mg PO BID PRN 09/04/20 09/11/20 Unknown levothyroxine 137 mcg tablet 137 mcg PO QAM 09/04/20 09/11/20 Unknown metoprolol succinate 25 mg 25 mg PO QAM 09/04/20 09/11/20 Unknown tablet,extended release 24 hr mirtazapine 45 mg tablet 45 mg PO HS 09/04/20 09/11/20 Unknown omeprazole 10 mg capsule,delayed 10 mg PO QAM 09/04/20 09/11/20 Unknown release losartan 25 mg tablet 25 mg PO QAM #90 tab 09/10/20 09/11/20 Unknown gabapentin 300 mg capsule 900 mg PO TID #270 cap 09/11/20 09/11/20 Unknown Past Medical History Medical History Anxiety Aortic aneurysm Thoracic ascending aorta aneurysm (3.7cm/2019), under surveillance by [facility] (Dr. Suarez) > recommend recheck in 2 years Arthritis Asthma Possible - stable Depression Fibromyalgia GERD (gastroesophageal reflux disease) controlled History of suicidal ideation Remotely noted 2014 per records Hypertension Hypothyroidism Migraine Hx Morbid obesity Polysubstance overdose Remotely noted 2014 per records Ventral hernia Exercise / Class Metabolic Activity III < 4 Walking/Shop/Light housework (one FS (no CP, + SOB)) Past Family History Family History Grandfather Arthritis Coronary heart disease Dementia Hypertension Myocardial infarction Aunt Breast cancer Grandmother Breast cancer Brother Coronary heart disease Hypertension Daughter Depression Father Obesity Denies family history of Ovarian cancer Prostate cancer Colorectal cancer Past Surgical History Surgical History H/O oral surgery History of back surgery For herniation History of cholecystectomy History of cryosurgery History of gastric bypass S/P arthroscopic knee surgery S/P cholecystectomy S/P gastric surgery S/P hernia repair S/P tubal ligation Status post hysteroscopy Past Anesthesia History No Family Hx of Anesthesia Complications and Other ("Very emotional" post-op) History of PONV No Hx of PONV and No Hx of Motion Sickness Social History Smoking Status: Never smoker Do You Dip or Chew Tobacco: No Hx Alcohol Use: Yes Alcohol type: hard liquor alcohol intake frequency: a few times a week Hx Substance Use: No Review of Systems Patient denies chest pain, shortness of breath, fever, chills, cough, wheezing, palpitations. Physical Exam Vital Signs VITALS BP 104/69 P 82 TEMP 98.0 SP02 95%RA RESP 16 PHYSICAL Full cervical extension range of motion. Full TMJ range of motion. TMD 3 finger breaths Mallampati Score 3 Dentition: full dentures Lungs: clear throughout to auscultation Cardiac: regular rate and rhythm, no murmurs noted Spine: normal Carotid arteries: negative bruit Extremities: no edema Lab Results Anesthesia Preop Results Results Anesthesia Widget: WBC 6.02 K/uL (4.8-10.8) 09/12/20 Hgb 13.1 g/dL (12.0-16.0) 09/12/20 Hct 41.4 % (37-47) 09/12/20 Plt 258 K/uL (130-400) 09/12/20 Na 140 mmol/L (136-145) 09/12/20 K 4.3 mmol/L (3.5-5.1) 09/12/20 Cl 107 mmol/L (98-107) 09/12/20 CO2 30 mmol/L (21-32) 09/12/20 BUN 16 mg/dl (7-18) 09/12/20 Creat 1.09 mg/dl (0.6-1.2) 09/12/20 Glucose Level 114 mg/dl (70-99) H 09/12/20 PT 9.5 Seconds (9.0-12.0) 09/12/20 PTT 24.2 Seconds (21.0-31.0) 09/12/20 INR 0.9 (0.9-1.1) 09/12/20 TSH 2.030 uIu/ml (0.300-4.500) 09/12/20 HA1c 5.0 % (4.5-5.6) 09/12/20 Blood Type A Negative 09/12/20 Antibody Screen NEGATIVE 09/12/20 Testing Electrocardiogram Date: 09/12/20 Findings: + NSR @ (80) Other Testing CT chest (06/25/20): No acute intrathoracic abnormality. Resolution of the previously described groundglass nodular opacities of the right upper lobe compatible with a resolved infectious or inflammatory pneumonitis. No adenopathy. Small right glenohumeral joint effusion with mild associated nonspecific inflammatory stranding extending into the right upper arm. Mild coronary artery calcifications.
--- NOTE | 2020-09-20 16:02 | History & Physical Report ---
Date of Service September 20, 2020 Assessment & Plan (1) Knee osteoarthritis: We will proceed with a right total knee arthroplasty. Postoperatively she will be started on aspirin for DVT prophylaxis and kept overnight in the hospital for postoperative medical management. She plans to use home health upon discharge. History of Present Illness Chief Complaint: Arthritis of the right knee. Primary Care Provider: Werner Chapin MD Idania is a pleasant 50-year-old female whose been dealing with chronic worsening right knee pain. X-rays and clinical examination been diagnostic for advanced osteoarthritis of the right knee. After failing years of conservative treatment, she has elected proceed with a right total knee arthroplasty.. Allergies Allergy/AdvReac Type Severity Reaction Status Date / Time nitrofurantoin Allergy Intermediate Hives Verified 09/10/20 13:20 adhesive Allergy Unknown Skin Verified 09/10/20 13:20 tearing (can toleratere tega-derm) Sulfa (Sulfonamide Allergy Unknown Rash Verified 09/10/20 13:20 Antibiotics) enalapril AdvReac Unknown Cough Verified 09/10/20 13:20 pine trees Allergy Unknown Itching, Uncoded 09/10/20 13:20 sneezing Home Medications Medication Instructions Recorded Confirmed Type ferrous sulfate 325 mg (65 mg 325 mg PO QAM #30 tab 11/10/18 09/11/20 History iron) tablet venlafaxine 100 mg tablet 100 mg PO TID #90 tab 11/29/19 09/11/20 Rx albuterol sulfate 90 mcg/actuation 2 puff INHALATION Q6H PRN #6.7 gm 04/13/20 09/11/20 Rx aerosol inhaler montelukast 10 mg tablet 10 mg PO QPM #90 tab 08/13/20 09/11/20 Rx ondansetron HCl 4 mg tablet 4 mg PO DAILY PRN #30 tab 08/20/20 09/11/20 Rx sumatriptan succinate 100 mg tablet 100 mg PO .COMPLEX #9 tab 08/22/20 09/11/20 Rx acetaminophen 650 mg 1,950 mg PO TID 09/04/20 09/11/20 History tablet,extended release chlorpheniramine maleate 4 mg 4 mg PO Q4H PRN 09/04/20 09/11/20 History tablet cholecalciferol (vitamin D3) 25 1,000 unit PO QAM 09/04/20 09/11/20 History mcg (1,000 unit) tablet clobetasol 0.05 % topical cream 1 appln TOP BID PRN 09/04/20 09/11/20 History cyanocobalamin (vitamin B-12) 1,000 mcg PO QAM 09/04/20 09/11/20 History 1,000 mcg capsule diphenhydramine HCl 25 mg capsule 25 mg PO TID PRN 09/04/20 09/11/20 History (Benadryl) doxepin 25 mg capsule 25 mg PO HS 09/04/20 09/11/20 History hydroxyzine HCl 50 mg tablet 100 mg PO BID PRN 09/04/20 09/11/20 History ibuprofen 200 mg tablet 800 mg PO BID PRN 09/04/20 09/11/20 History levothyroxine 137 mcg tablet 137 mcg PO QAM 09/04/20 09/11/20 History metoprolol succinate 25 mg 25 mg PO QAM 09/04/20 09/11/20 History tablet,extended release 24 hr mirtazapine 45 mg tablet 45 mg PO HS 09/04/20 09/11/20 History omeprazole 10 mg capsule,delayed 10 mg PO QAM 09/04/20 09/11/20 History release losartan 25 mg tablet 25 mg PO QAM #90 tab 09/10/20 09/11/20 Rx gabapentin 300 mg capsule 900 mg PO TID #270 cap 09/11/20 09/11/20 Rx Past Med/Surg History Medical History Anxiety Aortic aneurysm Thoracic ascending aorta aneurysm (3.7cm/2019), under surveillance by [facility] (Dr. Suarez) > recommend recheck in 2 years Arthritis Asthma Possible - stable Depression Fibromyalgia GERD (gastroesophageal reflux disease) controlled History of suicidal ideation Remotely noted 2014 per records Hypertension Hypothyroidism Migraine Hx Morbid obesity Polysubstance overdose Remotely noted 2014 per records Ventral hernia Surgical History H/O oral surgery History of back surgery For herniation History of cholecystectomy History of cryosurgery History of gastric bypass S/P arthroscopic knee surgery S/P cholecystectomy S/P gastric surgery S/P hernia repair S/P tubal ligation Status post hysteroscopy Family History Grandfather Arthritis Coronary heart disease Dementia Hypertension Myocardial infarction Aunt Breast cancer Grandmother Breast cancer Brother Coronary heart disease Hypertension Daughter Depression Father Obesity Denies family history of Ovarian cancer Prostate cancer Colorectal cancer Social History Smoking Status: Never smoker Second Hand Exposure: Yes (PARENTS SMOKED/SONS SMOKE); Hx Alcohol Use: Yes Alcohol type: hard liquor Hx Substance Use: No Preferred Language: Hebrew Communication Ability: Effective 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 Physical Exam On examination of the right knee, she does have a varus deformity. She has tenderness palpation of the distal femoral condyles and over the medial joint line.. Constitutional WD/WN, vitals as above Eyes PERRL, conjunctivae normal, anicteric sclerae ENMT external ear and nose normal, oropharynx normal Neck trachea midline, no thyromegaly Respiratory normal respiratory effort Cardiovascular RRR, no murmur, no edema Gastrointestinal (Abdomen) normal bowel sounds, soft, nontender, no hepatosplenomegaly Psychiatric A+Ox3, euthymic affect Results & Data Results & Data Laboratory Results . Diagnostic Findings X-rays of the right knee do show advanced osteoarthritis with joint space narrowing, osteophyte formation, and [id number] articulation. PG Care Time/CCT Total # of Minutes Spent Total Time Spent with Patient: Total time spent is greater than 50% in coordination of care (as documented) at patient's floor/unit and/or counseling patient: Coding Level of Care Code None Diagnoses Knee osteoarthritis M17.10
[~2020-09-21 06:14] MED LIST changes: -ACET-1256 PO; +ACETAMINOPHEN 500 MG TAB PO SCH; -CYAN10004 PO; -CYNI1000 INJ; -DIPH25CA5 PO; -DOXE10CA PO; -ENAL10TA PO; -FERR1TAB62 PO; +GABAPENTIN 300 MG CAP PO SCH; -HYDR-3126 PO; -IBUP-1105 PO; -LEVO137T3 PO; +LR 500ML BOLUS, THEN 15ML/HR IV SCH; +LR 60ML/HR IV SCH; -METO25TA56 PO; -MIRT45TA3 PO; -NRN/300 PO; -PREG1CAP36 PO; +ROPIVACAINE 0.5% HCL/PF 150 MG, BUPIVACAINE 0.75% MPF 20 ML, EPINEPHrine 30MG/30ML (OR ... INSTIL SCH; -SUMA100T16 PO; +TRANEXAMIC ACID 1,000 MG **IV Intra-op IV SCH; +TRANEXAMIC ACID 1,000 MG **IV Pre-op IV SCH; -VENL100T2 PO; -VNTHFA/IN INH; +ceFAZolin 2000MG 2,000 MG/15 ML SYR IV SCH
[2020-09-21] MEDS ORDERED: BUPIVACAINE 0.25% 30 ML VIAL ONE (06:36)
[2020-09-21] MEDS ORDERED: EPINEPHrine INJ 1 MG/ML AMP ONE (06:36)
[2020-09-21] MEDS ORDERED: BUPIVACAINE 0.5 % 5 MG/1 ML PF 10ML VIAL ONE (06:37)
[2020-09-21] MEDS: FAMOTIDINE 20 MG TAB PO SCH ×2 (07:20→07:22)
[2020-09-21] MEDS: dexAMETHasone 4 MG TAB PO SCH ×2 (07:20→07:22)
[2020-09-21] MEDS ORDERED: MIDAZOLAM HCL 1 MG/ML 2ML VIAL ONE (07:33)
--- NOTE | 2020-09-21 08:30 | History & Physical Bridge Note ---
Date of Service September 21, 2020 History & Physical Bridge Note I have examined the patient, reviewed the History & Physical and in the interval since the performance of the History & Physical I have noted the following changes of clinical significance: no changes noted
[2020-09-21] MEDS ORDERED: ONDANSETRON INJ 2 MG/ML 2 ML VIAL IV PRN ×2 (08:42→13:37)
[2020-09-21] MEDS ORDERED: HYDROmorphone INJ 2 MG/ML SYR/VIAL IV PRN (08:42)
[2020-09-21] MEDS ORDERED: fentaNYL citrate 100 MCG/2 ML VIAL IV PRN (08:42)
[2020-09-21] MEDS ORDERED: ATROPINE SULFATE 0.1 MG/ML 10ML SYR IV PRN (08:42)
[2020-09-21] MEDS ORDERED: ePHEDrine sulfate 50 MG/ML AMP IV PRN (08:42)
[2020-09-21] MEDS ORDERED: ORTHO JOINT ANESTHETIC ONE (08:50)
[2020-09-21] MEDS ORDERED: LIDOCAINE 2% 2 ML VIAL/AMP(20MG/ML) INFIL ONE (10:14)
[2020-09-21] MEDS ORDERED: PROPOFOL IV EMULSION 10 MG/ML 20 ML VIAL IV ONE ×2 (10:14→11:26)
[2020-09-21] MEDS ORDERED: ePHEDrine sulfate 50 MG/ML AMP ONE (10:14)
[2020-09-21] MEDS ORDERED: ONDANSETRON INJ 2 MG/ML 2 ML VIAL ONE (10:14)
--- NOTE | 2020-09-21 11:09 | Operative Report ---
PG Post Operative Report Pre & Post Diagnosis Operation Date: 09/21/20 08:40 Pre-Op Diagnosis: Right Knee Degenerative Joint Disease Post-Op Diagnosis: Right Knee Degenerative Joint Disease I identified the patient and participated in the time-out.: Yes Procedure Operation Date: 09/21/20 08:40 Actual Procedures p Right Total Knee Arthroplasty, Cemented(Right) - Gal Gentile DO Surgeon Gal Gentile DO Claims Auditor Gal Velasquez PAC Estimated Blood Loss 5 Findings Consistent with Post-Op Diagnosis Specimens Right femoral and tibial bone Complications none Disposition Disposition: Recovery Room Indications Idania is a pleasant 50-year-old female who is been dealing with chronic worsening right knee pain. She had a knee scope in the . X-rays and clinical examination have shown advanced osteoarthritis of the right knee. After failing conservative treatment, she elected proceed with a right total knee arthroplasty. Description of Procedure Implants used: I used a [employer] total knee arthroplasty system with a size 6 CPS femur, C tibia with a 30 mm stem, 29 patella, and a size 14 CPS polyethylene bearing. All components were cemented in place with Biomet cement. Pending arrived [facility] for the above procedure. She was seen in the preoperative holding area and the operative extremity was identified and signed. She was given a preoperative antibiotic, TXA, a spinal anesthetic and an adductor nerve block. She was taken back to the operating room and laid on the table in supine position. She was given basic sedation. The operative knee was then prepped and draped in sterile fashion. A timeout was done, and the patient and the operative extremity was properly identified. A midline incision was made directly over the patella. Dissection was taken down to the extensor mechanism. A subvastus arthrotomy was used. The medial retinaculum was released and the fat pad was mostly excised. The knee was flexed and the ACL, PCL, and meniscus were removed. A drill was sent down the center of the femoral canal followed by an intramedullary april. Off that april a distal femoral cutting block was placed. 9 mm was resected off the distal femur at 5 of valgus. A posterior referencing AP sizing guide was then placed on the distal femur. The femur measured to be a size 6. 2 drill holes were placed in 3 of external rotation. A 4-in-1 cutting block was then impacted into place. Anterior, posterior, and chamfer cuts were then made. The proximal tibia was then exposed. An external tibial alignment guide was placed. A tibial cut guide was then anchored in place and the proximal tibia was then resected. The posterior aspect of the knee was then opened up and any additional meniscus fragments and osteophytes were removed. The tibia measured to be a size C. The tibial plate was then placed in the appropriate rotation and the tibia was drilled and punched. Trial components were then placed. I used a size 14 CPS polyethylene insert. The knee was brought through a full range of motion and felt to be stable. The peg holes for the femoral component were then drilled. The patella was then everted and 9 mm was resected off the posterior aspect of the patella. The patella measured to be a size 29. 3 peg holes were then drilled. A trial patella was placed. The knee was once again brought through a full range of motion and felt to be stable. Trial components were then removed. The surrounding soft tissues were injected with 100 cc of an orthopedic pain control cocktail. All components were then cemented into place with Biomet cement. The final polyethylene insert was then snapped into place. Once cement was dry the tourniquet was deflated. Hemostasis was obtained. A dilute betadyne lavage was then done for 3 minutes. The joint was then irrigated with normal saline solution. The subvastus arthrotomy was then closed with #1 Vicryl suture. The skin was closed with 2-0 Vicryl, 3-0V lock suture, and jacy. A soft compressive dressing was placed. She was then transferred to a hospital bed and taken to the postanesthesia care unit in stable condition. She tolerated the procedure well. Gal Velasquez PA-C, was present for the entire procedure. He was critical for patient positioning, prepping, draping, retraction exposure, wound closure and application of sterile dressing. I attest to the content of the Intraoperative Record and any orders documented therein. Any exceptions are noted below.
--- NOTE | 2020-09-21 11:58 | XRay Report ---
RIGHT KNEE 2 VIEWS History: Right total knee arthroplasty. Degenerative arthritis. Postop. FINDINGS: The patient is status post a right total knee arthroplasty. The hardware is intact. No frac ture or dislocation. Skin jacy are in place. IMPRESSION: Right total knee arthroplasty. No evidence for hardware complication. ACT 112: Negative or not required by law. Electronically signed by: Miguel Kern M.D. 09/21/2020 11:57 AM
--- NOTE | 2020-09-21 13:13 | Anesthesiology Progress Note ---
Date of Service September 21, 2020 Anesthesia Post Procedure Vital Signs Vital Signs: Temp Pulse Pulse Resp BP BP Pulse Ox 09/21/20 13:00 76 16 137/85 99 09/21/20 12:45 80 16 137/94 97 09/21/20 12:30 36.7 C 75 16 116/84 97 09/21/20 12:15 77 16 130/81 94 09/21/20 12:05 73 16 120/79 94 09/21/20 11:55 36.8 C 74 16 109/78 97 09/21/20 11:45 79 16 108/69 96 09/21/20 11:35 36.7 C 84 20 103/61 96 09/21/20 06:50 37.0 C 102 H 20 166/91 H 96 Pain Intensity Right Knee: Pain Intensity: 5 Lower Back: Pain Intensity: 8 Transfer of Care Handoff Completed per policy Notes Mental Status: alert / awake / arousable and participated in evaluation Patient Amnestic to Procedure: Yes Nausea / Vomiting: adequately controlled Pain: adequately controlled Airway Patency, RR, SpO2: stable & adequate BP & HR: stable & adequate Hydration State: stable & adequate Anesthetic Complications: no major complications apparent and Pt Satisfied with anesthetic care
[2020-09-21] MEDS ORDERED: METOCLOPRAMIDE HCL INJ 5 MG/ML 2 ML VIAL IV PRN (13:37)
[2020-09-21] MEDS ORDERED: hydrOXYzine HCl 25 MG TAB PO PRN (13:37)
[2020-09-21] MEDS ORDERED: MAGNESIUM HYDROXIDE SUSP 30 ML UDC PO PRN (13:37)
[2020-09-21] MEDS ORDERED: NALOXONE HCL 0.4 MG/1 ML VIAL/CARP IV PRN (13:37)
[2020-09-21] MEDS ORDERED: HYDROmorphone INJ 0.5 MG/0.5 ML SYR IV PRN (13:37)
[2020-09-21] MEDS ORDERED: SODIUM CHLORIDE 0.9% 1000ML 1,000 ML IV SCH (13:37)
[2020-09-21] MEDS ORDERED: oxyCODONE HCL IR 5 MG TAB (IMMEDIATE RELEASE) PO PRN (13:37)
[2020-09-21] MEDS ORDERED: ALBUTEROL HFA 8 GM INHALER INH PRN (13:37)
[2020-09-21] MEDS ORDERED: bisacodyL 10 MG SUPP PR PRN (13:37)
[2020-09-21] MEDS ORDERED: NON-FORMULARY MEDICATION (Chlorpheniramine Maleate 4 mg Tablet) PO PRN (13:37)
[2020-09-21] MEDS ORDERED: diphenhydrAMINE Capsule 25 MG CAP PO PRN (13:37)
[2020-09-21] MEDS ORDERED: SUMAtriptan succinate 100 MG TAB PO PRN (14:13)
[2020-09-21] MEDS: GABAPENTIN 300 MG CAP PO SCH ×2 (15:10→20:07)
[2020-09-21] MEDS: VENLAFAXINE HCL 50 MG TAB PO SCH ×2 (15:11→20:07)
[2020-09-21] MEDS: ACETAMINOPHEN 500 MG TAB PO SCH ×2 (15:12→22:39)
[2020-09-21] MEDS: KETOROLAC 30 MG/ML VIAL IV SCH ×2 (15:12→20:07)
[2020-09-21] MEDS: ceFAZolin 2000MG 2,000 MG/15 ML SYR IV SCH (18:17)
[2020-09-21] MEDS: DOCUSATE SODIUM 100 MG CAP PO SCH (20:08)
[2020-09-21] MEDS: ASPIRIN 81 MG ECTAB PO SCH (20:09)
[2020-09-21] MEDS ORDERED: SENNA 8.6 MG TAB PO SCH (21:00)
[2020-09-21] MEDS ORDERED: DOXEPIN HCL 25 MG CAPSULE PO SCH (21:00)
[2020-09-21] MEDS ORDERED: MIRTAZAPINE SOLTAB 15 MG PO SCH (21:00)
[2020-09-21] MEDS ORDERED: MONTELUKAST SODIUM 10 MG TABLET PO SCH (21:00)
[2020-09-22] MEDS: ceFAZolin 2000MG 2,000 MG/15 ML SYR IV SCH (01:36)
[2020-09-22] MEDS: KETOROLAC 30 MG/ML VIAL IV SCH ×2 (01:41→09:28)
[2020-09-22] MEDS: ACETAMINOPHEN 500 MG TAB PO SCH (05:28)
[2020-09-22] MEDS ORDERED: LEVOTHYROXINE SODIUM 137 MCG TABLET PO SCH (06:30)
--- NOTE | 2020-09-22 07:25 | Orthopedic Progress Note ---
Date of Service September 22, 2020 Assessment & Plan (1) Status post right knee replacement: Overall she is doing very well. She denies any much pain in the right knee. She is on aspirin for DVT prophylaxis. She will be seen by physical therapy today for ambulation and range of motion exercises. She can be discharged home later today. She will follow-up with orthopedics in 2 weeks. Beulah Emerson was seen and examined at bedside this morning. Overall she is doing very well. She denies any much pain in the right knee. She has been up and ambulating to the bathroom. She has no complaints.. Review of Systems All systems reviewed & are unremarkable except as noted in HPI & below. Physical Exam On physical examination of the right knee, the dressing is clean and dry. Her leg is out full extension. She has active dorsiflexion and plantarflexion of her right ankle. Sensation is intact throughout.. Results & Data Results & Data Laboratory Results . Diagnostic Findings Postoperative x-rays of the right knee show the prosthesis to be in anatomic alignment without any evidence of fracture, dislocation, or loosening. PG Care Time/CCT Total # of Minutes Spent Total Time Spent with Patient: Total time spent is greater than 50% in coordination of care (as documented) at patient's floor/unit and/or counseling patient: Coding Level of Care Code 57454 Post Operative Follow-Up Diagnoses Status post right knee replacement Z96.651
--- NOTE | 2020-09-22 07:27 | Discharge Summary ---
Date of Service September 22, 2020 Admission HPI (Per Admitting) Idania is a pleasant 50-year-old female whose been dealing with chronic worsening right knee pain. X-rays and clinical examination been diagnostic for advanced osteoarthritis of the right knee. After failing years of conservative treatment, she has elected proceed with a right total knee arthroplasty.. Admission Exam (Per Admitting) On examination of the right knee, she does have a varus deformity. She has tenderness palpation of the distal femoral condyles and over the medial joint line.. Principal Diagnosis Same as "Discharge Diagnosis" noted below under Discharge Instructions. Discharge Exam On physical examination of the right knee, the dressing is clean and dry. Her leg is out full extension. She has active dorsiflexion and plantarflexion of her right ankle. Sensation is intact throughout.. Discharge Data Procedures Performed Operation Date: 09/21/20 08:40 Actual Procedures p Right Total Knee Arthroplasty, Cemented(Right) - Gal Gentile DO Ordered Studies 09/21/20 05:00 US - OR guided needle placemen Routine Hospital Course (1) Status post right knee replacement: On September 21, 2020 Idania arrived at [facility] and underwent a right knee replacement without complication. She had a spinal anesthetic. P ostoperatively she was started on aspirin for DVT prophylaxis and transferred to the general orthopedic floors. Her hospital course was uneventful. On postop day #1 her vital signs were stable and her pain was well controlled. She was able to participate well with physical therapy doing ambulation and range of motion exercises. She was then discharged home. She will follow-up with orthopedics in 2 weeks. PG Care Time/CCT Total # of Minutes Spent Total Time Spent with Patient: Total time spent is greater than 50% in coordination of care (as documented) at patient's floor/unit and/or counseling patient: Discharge Plan Discharge Items Patient Disposition: Home - Home Health Services Reason For Visit: Right Knee Degenerative Joint Disease Discharge Diagnosis: Right knee replacement Activity: As commented below Non-emergency contact: Surgeon Call non-emergency contact if: your wound has increased redness and your wound has increased drainage Follow-up/Referrals: Werner Chapin MD [Primary Care Provider] - Diet: Regular Addtl Attending Provider Instructions: Activity and Therapy Recommendations: * If you are using [facility] then therapy will be provided at your home until they feel you have accomplished all of your goals. * If you are using [facility] then Physical Therapy will be provided until they feel you are ready to start Outpatient Physical Therapy. * If you are not using home therapy then Outpatient Physical Therapy should start about 3-5 days from your day of surgery. Therapy will last about 6-10 weeks * It is important not to put a pillow under your knee when you are relaxing or sleeping. It is just as important to make sure you are getting your knee perfectly straight as it is to regain your knee bend. * You were shown a series of exercises in the hospital. Do these exercises three times each day including the exercises you were shown in physical therapy. * Get up and walk several times each day. For the first four weeks, try not to stand or walk for more than one hour at a time. If you do stand or walk for more than one hour, you will not hurt anything, but your leg will likely swell. * As you feel comfortable, you may change from the walker or crutches to a cane and then to independent walking. Medications: * Narcotic You will likely be sent home from the hospital with a prescription for the narcotic pain medication that worked best throughout your stay. * Aspirin Most patients will be required to take Aspirin 81mg twice a day for 6 weeks after surgery. This is obtained [id number] and a prescription is not necessary. * Other medications may be prescribed for specific circumstances. If you have any questions, please call the office at . * Resume previous home medications unless otherwise instructed TEDs/Elastic Stockings: The white elastic stockings help limit swelling and prevent blood clots from forming in your legs.~ The more you wear them, the more they work. Wear them for six weeks. Dressing Care: The dressing can be changed after physical therapy on postop day #1. Daily dry dressing changes for a few days, especially if the incision is still draining some. If the incision is not draining then you may leave the jacy open to air. If there is a little bit of drainage or if the jacy are getting stuck on your clothing then cover the incision with a dry dressing. The jacy will be removed at your 2 week follow-up appointment. Showering: You may shower 5 days from the day of surgery as long as the incision is no longer draining. You may shower with the jacy exposed. Let soapy water run over the jacy and pat them dry. Do not scrub or soak the incision. Things To Watch For: * Drainage from the incision site that occurs more than one week after your surgery. * Increased redness at the incision site. * Fever above 102 degrees Fahrenheit. * Unusual chest pain or shortness of breath. * Call [facility] at with any of the above problems Follow-Up Visit: Follow-up with Dr. Gentile's PA (Gal Velasquez) 2-3 weeks after your day of surgery. He will remove your jacy and answer any questions. If you have any additional questions or concerns, Dr Gentile is usually in the office at the same time and will be available An appointment was probably scheduled when you signed-up for surgery in the office. If you have any questions call Office Instructions: More detailed instructions as well as Frequently Asked Questions were provided in a folder by our office when you signed-up for surgery. Please review these instructions when you get home. If you have any further questions or concerns, please feel free to call the office at [phone] Pending Studies at Discharge: No Stand-Alone Forms: My [facility], Smoking Cessation Medications and DC Order Prescriptions: New oxycodone 5 mg Tablet 5 mg PO Q4H PRN (Reason: pain) Qty: 60 RF: 0 aspirin 81 mg Tablet,Delayed Release (Dr/Ec) 81 mg PO BID 42 Days Qty: 84 RF: 0 Continued venlafaxine 100 mg tablet 100 mg PO TID Qty: 90 RF: 5 albuterol sulfate 90 mcg/actuation HFA aerosol inhaler 2 puff inhalation Q6H PRN (Reason: shortness of breath or wheezing) Qty: 6.7 RF: 5 montelukast 10 mg tablet 10 mg PO QPM Qty: 90 RF: 3 ondansetron HCl 4 mg tablet 4 mg PO DAILY PRN (Reason: nausea and vomiting) Qty: 30 RF: 1 losartan 25 mg tablet 25 mg PO QAM Qty: 90 RF: 1 gabapentin 300 mg capsule 900 mg PO TID Qty: 270 RF: 5 ferrous sulfate 325 mg (65 mg iron) tablet 325 mg PO QAM Qty: 30 RF: 0 doxepin 25 mg capsule 25 mg PO HS RF: 0 clobetasol 0.05 % cream 1 appln TOP BID PRN (Reason: Dry Skin) RF: 0 cholecalciferol (vitamin D3) 25 mcg (1,000 unit) tablet 1,000 unit PO QAM RF: 0 cyanocobalamin (vitamin B-12) 1,000 mcg capsule 1,000 mcg PO QAM RF: 0 levothyroxine 137 mcg tablet 137 mcg PO QAM RF: 0 hydroxyzine HCl 50 mg tablet 100 mg PO BID PRN (Reason: itching) RF: 0 omeprazole 10 mg capsule,delayed release(DR/EC) 10 mg PO QAM RF: 0 mirtazapine 45 mg tablet 45 mg PO HS RF: 0 metoprolol succinate 25 mg tablet extended release 24 hr 25 mg PO QAM RF: 0 chlorpheniramine maleate [Chlortab-4] 4 mg Tablet 4 mg PO Q4H PRN (Reason: Allergy Symptoms) RF: 0 diphenhydramine HCl [Benadryl] 25 mg Capsule 25 mg PO TID PRN (Reason: Allergy Symptoms) RF: 0 acetaminophen [Tylenol Arthritis] 650 mg Tablet Extended Release 1,950 mg PO TID RF: 0 ibuprofen 200 mg Tablet 800 mg PO BID PRN (Reason: Pain) RF: 0 sumatriptan succinate [Imitrex] 100 mg tablet 100 mg PO .COMPLEX RF: 0 Discharge Orders: Discharge Order (Routine); Ordered 09/22/20 Ordered By: Gal Gentile Admission Data Admit Date/Time: 09/21/20 11:39 Attending Provider: Gal Gentile Admit Provider: Gal Gentile Primary Care Provider: Werner Chapin V.
[2020-09-22 07:56] VITALS: BP 125/82; PULSE 76; TEMP 98.2; O2SAT 97
[2020-09-22] MEDS ORDERED: dexAMETHasone 4 MG TAB PO SCH (08:00)
[2020-09-22] MEDS ORDERED: LOSARTAN POTASSIUM 25 MG TAB PO SCH (09:00)
[2020-09-22] MEDS ORDERED: MULTIVITAMIN TAB PO SCH (09:00)
[2020-09-22] MEDS ORDERED: METOPROLOL SUCC 25MG EXT REL TAB PO SCH (09:00)
[2020-09-22] MEDS: GABAPENTIN 300 MG CAP PO SCH (09:27)
[2020-09-22] MEDS: ASPIRIN 81 MG ECTAB PO SCH (09:27)
[2020-09-22] MEDS: DOCUSATE SODIUM 100 MG CAP PO SCH (09:27)
[2020-09-22] MEDS: VENLAFAXINE HCL 50 MG TAB PO SCH (09:28)
== END 2020-09-22 11:59 | disposition home health service (06) ==
LOC: ASU 06:14 → PACUINP 06:14 → 3E 11:51

== ENCOUNTER 2020-10-17 18:53 | Inpatient (IN) ==
[2020-10-17 22:23] LABS: Basophils # (auto) 0.03 K/uL (0-0.2); Basophils % (auto) 0.2 %; Eosinophils # (auto) 0.11 K/uL (0-0.5); Eosinophils % (auto) 0.7 %; Hematocrit (blood only) 39.1 % (37-47); Hemoglobin 12.3 g/dL (12.0-16.0); Immature Granulocytes # (auto) 0.06 K/uL (0.00-0.02); Immature Granulocytes % (auto) 0.4 %; Mean Corpuscular Hemoglobin 32.3 pg (25-34); Mean Corpuscular Hgb Conc 31.5 g/dL (32-36); Mean Corpuscular Volume 102.6 fL (80-100); Mean Platelet Volume 10.3 fL (7.4-10.4); Monocytes # (auto) 1.76 K/uL (0.11-0.59); Monocytes % (auto) 11.7 %; Neutrophils # (auto) 12.22 K/uL (1.4-6.5); Nucleated RBC # (auto) 0.02 K/uL (0-0); Nucleated RBC % (auto) 0.1 %; Platelet Count 579 K/uL (130-400); RDW Coefficient of Variation 19.5 % (11.5-14.5); RDW Standard Deviation 71.7 fL (36.4-46.3); Red Blood Count 3.81 M/uL (4.2-5.4); White Blood Count 15.08 K/uL (4.8-10.8)
[2020-10-17 22:46] LABS: Alanine Aminotransferase 17 U/L (12-78); Albumin Globulin Ratio 0.8 (0.9-2); Albumin Level 3.4 gm/dl (3.4-5.0); Alkaline Phosphatase 325 U/L (45-117); Aspartate Aminotransferase 25 U/L (15-37); BUN Creatinine Ratio 5.8 (10-20); Bilirubin,Total 0.5 mg/dl (0.2-1); Blood Urea Nitrogen 7 mg/dl (7-18); Calcium 9.8 mg/dl (8.5-10.1); Carbon Dioxide 10 mmol/L (21-32); Chloride 105 mmol/L (98-107); Creatinine Clr Calc Pharmacy 64.3 ml/min; Est GFR (African American) 57.9 ml/min; Globulin 4.4 gm/dl (2.5-4.0); Glucose 92 mg/dl (70-99); Potassium 3.2 mmol/L (3.5-5.1); Sodium 134 mmol/L (136-145); Total Protein 7.8 gm/dl (6.4-8.2)
[2020-10-17] MEDS ORDERED: ONDANSETRON INJ 2 MG/ML 2 ML VIAL IV STA (22:50)
[2020-10-17] MEDS ORDERED: SODIUM CHLORIDE 0.9% 1000ML 500 ML IV ONE (22:50)
[2020-10-17] MEDS ORDERED: diphenhydrAMINE 50 MG/ML VIAL IV STA (22:53)
--- NOTE | 2020-10-17 22:53 | Emergency Department Note ---
History of Present Illness General Chief complaint: Vomiting Stated complaint: HAD KNEE REPLACEMENT, VOMITING FOR 2 DAYS, WEAK Time Seen by Provider: 10/17/20 22:38 Source: patient History of Present Illness Provider complaint: Vomiting Onset (ago): week(s) Location: abdomen Pain Consistency: + intermittent Quality: + other (Vomiting) Relieved By: + medication (Zofran) Exacerbated By: + eating Associated symptoms: + chest pain, + nausea/vomiting and + shortness of breath; no cough, no fever/chills or no headaches This is a 50-year-old female who presents with vomiting. She states that she had a knee replacement on September 21. She saw her orthopedic doctor over a week ago. She had some redness to the wound and so was started on Keflex. 8 days ago she started vomiting and therefore stopped the Keflex 2 days later. She is persistently vomiting at this point and cannot eat any food. She states anytime she eats she will throw up. She denies any abdominal pain or discomfort. She told her orthopedic doctor that she stopped the antibiotic and he was not concerned. He did see her 2 days ago and said the wound looked good. She does not have any pain to the right knee and states it looks much better. He did give her Zofran which minimally helped and she has run out of it. She notes that 3 days ago she developed significant shortness of breath with exertion. She states just walking to the bathroom makes her short of breath. She also complains of chest pain in the middle of her chest which she describes as sharp. She does have a history of aortic aneurysm and states she has it followed every year. She denies any significant swelling to her lower extremities, including the right leg where she had the knee replacement. She has no pain to the lower extremities. She denies any history of PE or DVT. Home Medications Medication Instructions Recorded Confirmed Type ferrous sulfate 325 mg (65 mg 325 mg PO QAM #30 tab 11/10/18 10/03/20 History iron) tablet venlafaxine 100 mg tablet 100 mg PO TID #90 tab 11/29/19 10/03/20 Rx albuterol sulfate 90 mcg/actuation 2 puff INHALATION Q6H PRN #6.7 gm 04/13/20 10/03/20 Rx aerosol inhaler montelukast 10 mg tablet 10 mg PO QPM #90 tab 08/13/20 10/03/20 Rx ondansetron HCl 4 mg tablet 4 mg PO DAILY PRN #30 tab 08/20/20 10/03/20 Rx acetaminophen 650 mg 1,950 mg PO TID 09/04/20 10/03/20 History tablet,extended release chlorpheniramine maleate 4 mg 4 mg PO Q4H PRN 09/04/20 10/03/20 History tablet cholecalciferol (vitamin D3) 25 1,000 unit PO QAM 09/04/20 10/03/20 History mcg (1,000 unit) tablet clobetasol 0.05 % topical cream 1 appln TOP BID PRN 09/04/20 10/03/20 History cyanocobalamin (vitamin B-12) 1,000 mcg PO QAM 09/04/20 10/03/20 History 1,000 mcg capsule diphenhydramine HCl 25 mg capsule 25 mg PO TID PRN 09/04/20 10/03/20 History (Benadryl) doxepin 25 mg capsule 25 mg PO HS 09/04/20 10/03/20 History hydroxyzine HCl 50 mg tablet 100 mg PO BID PRN 09/04/20 10/03/20 History ibuprofen 200 mg tablet 800 mg PO BID PRN 09/04/20 10/03/20 History levothyroxine 137 mcg tablet 137 mcg PO QAM 09/04/20 10/03/20 History metoprolol succinate 25 mg 25 mg PO QAM 09/04/20 10/03/20 History tablet,extended release 24 hr mirtazapine 45 mg tablet 45 mg PO HS 09/04/20 10/03/20 History omeprazole 10 mg capsule,delayed 10 mg PO QAM 09/04/20 10/03/20 History release losartan 25 mg tablet 25 mg PO QAM #90 tab 09/10/20 10/03/20 Rx gabapentin 300 mg capsule 900 mg PO TID #270 cap 09/11/20 10/03/20 Rx sumatriptan succinate 100 mg 100 mg PO .COMPLEX 09/21/20 10/03/20 History tablet (Imitrex) aspirin 81 mg tablet,delayed 81 mg PO BID 42 Days #84 tab 09/22/20 10/03/20 Rx release oxycodone 5 mg tablet 5 mg PO Q4H PRN #60 tab 09/22/20 10/03/20 Rx oxycodone 5 mg tablet 5 mg PO Q6H PRN #30 tab 09/28/20 10/03/20 Rx cephalexin 500 mg capsule 500 mg PO TID 10 Days #30 cap 10/03/20 10/03/20 Rx oxycodone 5 mg tablet 5 mg PO Q6H PRN #30 tab 10/03/20 10/03/20 Rx ondansetron HCl 4 mg tablet 4 mg PO Q6 PRN #15 tab 10/05/20 Rx ondansetron HCl 4 mg tablet 4 mg PO Q6 PRN #15 tab 10/08/20 Rx Allergies Allergy/AdvReac Type Severity Reaction Status Date / Time adhesive Allergy Severe Skin Verified 10/03/20 14:09 tearing (can toleratere tega-derm) Sulfa (Sulfonamide Allergy Severe Rash Verified 10/03/20 14:09 Antibiotics) nitrofurantoin Allergy Intermediate Hives Verified 10/03/20 14:09 enalapril AdvReac Mild Cough Verified 10/03/20 14:09 pine trees Allergy Intermediate Itching, Uncoded 10/03/20 14:09 sneezing Past Med/Surg History Medical History Anxiety Aortic aneurysm Thoracic ascending aorta aneurysm (3.7cm/2020), under surveillance by [facility] (Dr. Suarez) > recommend recheck in 2 years Arthritis Asthma Possible - stable Depression Fibromyalgia GERD (gastroesophageal reflux disease) controlled History of suicidal ideation Remotely noted 2014 per records Hypertension Hypothyroidism Migraine Hx Morbid obesity Polysubstance overdose Remotely noted 2014 per records Ventral hernia Surgical History H/O oral surgery History of back surgery For herniation History of cholecystectomy History of cryosurgery History of gastric bypass S/P arthroscopic knee surgery S/P cholecystectomy S/P gastric surgery S/P hernia repair S/P tubal ligation Status post hysteroscopy Family History Grandfather Arthritis Coronary heart disease Dementia Hypertension Myocardial infarction Aunt Breast cancer Grandmother Breast cancer Brother Coronary heart disease Hypertension Daughter Depression Father Obesity Denies family history of Ovarian cancer Prostate cancer Colorectal cancer Social History Smoking Status: Never smoker Second Hand Exposure: No; Hx Alcohol Use: Yes Alcohol type: hard liquor Hx Substance Use: No Preferred Language: Armenian Communication Ability: Effective Digital Media Specialist Required: No Beliefs That Will Affect Care: None marital status: Current Living Situation: Family Current Living Situation Comment: SONS LIVE WITH PT current occupational status: disabled Feels Safe at Home: Yes Dental Care, Regularly: No Physical Activity Frequency: Does not Exercise Seatbelt Use: always Sunscreen Use: Yes Assistive Devices: Glasses and Walker Review of Systems See HPI for pertinent positives & negatives. and A total of 10 systems reviewed and were otherwise negative Physical Exam Vital Signs Vital Signs - 24 hr 10/17/20 19:17 10/17/20 22:30 10/17/20 23:31 Temperature 36.2 C L Temperature Source Temporal Artery Scan Pulse Rate 115 H 100 H Pulse Rate from SpO2 Sensor 100 H Respiratory Rate 18 22 Respiratory Effort / Characteristics Non-Labored Spontaneous Respiratory Depth Normal Blood Pressure 130/100 151/125 H 159/133 H Blood Pressure Mean 110 133 141 Pulse Oximetry 96 100 Oxygen Delivery Method Room Air Sepsis Recent Fever Within 48 Hours No Sepsis New/Unexplained Change in Mental Status No Sepsis Action Taken by Nursing No Action Required 10/18/20 00:03 10/18/20 00:30 10/18/20 01:00 Temperature Temperature Source Pulse Rate 105 H 102 H Pulse Rate from SpO2 Sensor 105 H 100 H 101 H Respiratory Rate 24 Respiratory Effort / Characteristics Respiratory Depth Blood Pressure Blood Pressure Mean Pulse Oximetry 99 96 98 Oxygen Delivery Method Sepsis Recent Fever Within 48 Hours Sepsis New/Unexplained Change in Mental Status Sepsis Action Taken by Nursing 10/18/20 01:30 Temperature Temperature Source Pulse Rate 108 H Pulse Rate from SpO2 Sensor Respiratory Rate 18 Respiratory Effort / Characteristics Respiratory Depth Blood Pressure 163/120 H Blood Pressure Mean 134 Pulse Oximetry Oxygen Delivery Method Sepsis Recent Fever Within 48 Hours Sepsis New/Unexplained Change in Mental Status Sepsis Action Taken by Nursing Constitutional: Vital signs reviewed. Eyes: Pupils are equal round reactive to light. Conjunctiva are noninjected. ENT: Pharynx is clear without erythema or exudate. Mucous membranes are dry. Neck supple without meningeal signs. Respiratory: Clear to auscultation bilaterally. Breath sounds are equal bilaterally. Cardiovascular: Tachycardic. Heart rate 106. GI: Soft, nondistended and nontender. Bowel sounds are present. Musculoskeletal: Vertical incision to the anterior right knee. There is some dehiscence to the inferior portion with serosanguineous discharge. No significant erythema surrounding it. Slight increased warmth. No lower extremity tenderness. Integumentary: No cyanosis. or jaundice. Neurological: The patient is awake and alert. No focal deficits. Psychiatric: Normal affect. Not anxious appearing. Course Administered Medications Cefazolin Sodium (Ancef 1000mg) 1,000 mg in 7.5 mls @ 2.5 mls/min IV Q8H DAVE Stop: 10/25/20 02:26 Last Admin: 10/18/20 02:34 Dose: 2.5 mls/min Documented by: [id number] Discontinued Medications Diphenhydramine HCl (Diphenhydramine 50 Mg/Ml Vial) 25 mg IV NOW STA Stop: 10/17/20 22:54 Last Admin: 10/17/20 23:16 Dose: 25 mg Documented by: [id number] Sodium Chloride (Nss 1000ml) 500 mls @ 999 mls/hr IV .Q31M ONE Stop: 10/17/20 23:20 Last Infusion: 10/17/20 23:47 Dose: 0 mls/hr Documented by: [id number] Admin: 10/17/20 23:10 Dose: 999 mls/hr Documented by: [id number] Ioversol (Optiray 320 125ml) 125 ml IV ONCE ONE Stop: 10/17/20 23:48 Last Admin: 10/17/20 23:47 Dose: 91 ml Documented by: [id number] Ondansetron HCl (Ondansetron Inj 2 Mg/Ml 2 Ml Vial) 4 mg IV NOW STA Stop: 10/17/20 22:51 Last Admin: 10/17/20 23:16 Dose: Not Given Documented by: [id number] Medical Decision Making Differential Diagnosis Gastritis,Ileus, PE, aortic dissection, dehydration, YUNI Medical Records Attestation: I reviewed the patient's medical records. I did perform a limited focused review of portions of the patient's old chart on the electronic medical record. The patient had surgery on her right knee on September 21. She was seen by orthopedics on October 03 and placed on Keflex. She saw Dr. Gentile October 15 for follow-up. Home Medications Current Medication List: was personally reviewed by me Laboratory Data Attestation: I reviewed the patient's lab results. Result diagrams: 10/17/20 22:09 10/17/20 22:09 Lab Results 10/17/20 10/17/20 10/18/20 Range/Units 22:09 22:09 01:25 WBC 15.08 H (4.8-10.8) K/uL RBC 3.81 L (4.2-5.4) M/uL Hgb 12.3 (12.0-16.0) g/dL Hct 39.1 (37-47) % MCV 102.6 H (80-100) fL MCH 32.3 (25-34) pg MCHC 31.5 L (32-36) g/dL RDW Std Deviation 71.7 H (36.4-46.3) fL RDW Coeff of Janet 19.5 H (11.5-14.5) % Plt Count 579 H (130-400) K/uL MPV 10.3 (7.4-10.4) fL Immature Gran % (Auto) 0.4 % Neut % (Auto) 81.0 % Lymph % (Auto) 6.0 % [place] % (Auto) 11.7 % Eos % (Auto) 0.7 % Baso % (Auto) 0.2 % Neut # (Auto) 12.22 H (1.4-6.5) K/uL Lymph # (Auto) 0.90 L (1.2-3.4) K/uL [place] # (Auto) 1.76 H (0.11-0.59) K/uL Eos # (Auto) 0.11 (0-0.5) K/uL Baso # (Auto) 0.03 (0-0.2) K/uL Immature Gran # (Auto) 0.06 H (0.00-0.02) K/uL Absolute Nucleated RBC 0.02 H (0-0) K/uL Nucleated RBC % (auto) 0.1 % Sodium 134 L (136-145) mmol/L Potassium 3.2 L (3.5-5.1) mmol/L Chloride 105 (98-107) mmol/L Carbon Dioxide 10 L (21-32) mmol/L Anion Gap 19.0 H (3-11) BUN 7 (7-18) mg/dl Creatinine 1.26 H (0.6-1.2) mg/dl Est Cr Clr Drug Dosing 64.3 ml/min Est GFR ( Amer) 57.9 ml/min Est GFR (Non-Af Amer) 50.0 ml/min BUN/Creatinine Ratio 5.8 L (10-20) Glucose 92 (70-99) mg/dl Calcium 9.8 (8.5-10.1) mg/dl Total Bilirubin 0.5 (0.2-1) mg/dl AST 25 (15-37) U/L ALT 17 (12-78) U/L Alkaline Phosphatase 325 H (45-117) U/L Troponin I < 0.015 (0-0.045) ng/ml Total Protein 7.8 (6.4-8.2) gm/dl Albumin 3.4 (3.4-5.0) gm/dl Globulin 4.4 H (2.5-4.0) gm/dl Albumin/Globulin Ratio 0.8 L (0.9-2) Specimen Hemolysis COVID-19 Eval Order Covid19 at [facility] SARS-CoV-2 (PCR) (Negative) 10/18/20 Range/Units 01:25 WBC (4.8-10.8) K/uL RBC (4.2-5.4) M/uL Hgb (12.0-16.0) g/dL Hct (37-47) % MCV (80-100) fL MCH (25-34) pg MCHC (32-36) g/dL RDW Std Deviation (36.4-46.3) fL RDW Coeff of Janet (11.5-14.5) % Plt Count (130-400) K/uL MPV (7.4-10.4) fL Immature Gran % (Auto) % Neut % (Auto) % Lymph % (Auto) % [place] % (Auto) % Eos % (Auto) % Baso % (Auto) % Neut # (Auto) (1.4-6.5) K/uL Lymph # (Auto) (1.2-3.4) K/uL [place] # (Auto) (0.11-0.59) K/uL Eos # (Auto) (0-0.5) K/uL Baso # (Auto) (0-0.2) K/uL Immature Gran # (Auto) (0.00-0.02) K/uL Absolute Nucleated RBC (0-0) K/uL Nucleated RBC % (auto) % Sodium (136-145) mmol/L Potassium (3.5-5.1) mmol/L Chloride (98-107) mmol/L Carbon Dioxide (21-32) mmol/L Anion Gap (3-11) BUN (7-18) mg/dl Creatinine (0.6-1.2) mg/dl Est Cr Clr Drug Dosing ml/min Est GFR ( Amer) ml/min Est GFR (Non-Af Amer) ml/min BUN/Creatinine Ratio (10-20) Glucose (70-99) mg/dl Calcium (8.5-10.1) mg/dl Total Bilirubin (0.2-1) mg/dl AST (15-37) U/L ALT (12-78) U/L Alkaline Phosphatase (45-117) U/L Troponin I (0-0.045) ng/ml Total Protein (6.4-8.2) gm/dl Albumin (3.4-5.0) gm/dl Globulin (2.5-4.0) gm/dl Albumin/Globulin Ratio (0.9-2) Specimen Hemolysis COVID-19 Eval Order SARS-CoV-2 (PCR) NEGATIVE (Negative) Imaging Data Radiologist's Impression: [facility] Patient: PATRICIO MICHELE (Female) : 72 Status: ER Date: 10/17/20 23:50 Room #: History: chest pain and sob eval for pe Slices: [id number] Priors: Tech: Murphy Rubin @ [phone] Exams: CTA CHEST Contrast: IV Amt: 91 ml optiray 320 Accession Numbers: [id number] Referring Physician: REFERRED SELF Preliminary Findings Only See Final Report For Complete Findings CTA CHEST: Comparison: CTA chest 10/28/2019 Examination is limited by low lung volumes and respiratory motion, particularly in the lower lobes. No definite acute pulmonary embolism is visualized. No evidence of right heart strain. No focal consolidation, pleural effusion or pneumothorax. Resolution of previously demonstrated groundglass opacities in the right lung apex. No aortic aneurysm or dissection. Postsurgical changes of the stomach. Radiologist: Melinda Centeno M.D. Study ready at 23:52 and initial results transmitted at 00:02 ECG Data Attestation: I personally reviewed and interpreted this ECG as follows: Indication: + chest pain Rate (beats per minute): 108 Rhythm: + sinus tachycardia ECG Intervals/blocks: + Prolonged QT ECG ST segments: + Nonspecific ST abnormalities ECG Findings: no PVCs Comparison ECG Date: from (September 12, 2020) Change: the following changes noted (Prolonged QT interval is new; prior QTC was 470) HESHAM HernandezI did evaluate the patient as noted above. The patient is presenting with several issues. The patient states she has been vomiting approximately 8 days and has not been able to keep down much in the way of liquids and definitely not any solids. She also developed dyspnea on exertion 3 to 4 days ago with chest pain. She is status post knee operation and so I was concerned about the possibility of PE. IV access was established. She was treated with normal saline IV as well as Benadryl [address] I did place an order for continuous car diac monitoring. The monitor showed sinus tachycardia at a rate of 106 bpm. I did order and personally review the patient's 12-lead EKG as described above. She has a prolonged QT interval which is new. She also has nonspecific ST changes. She is tachycardic. I did order a urine analysis. I did order and review the patient's blood work as noted in the electronic medical record. Her white count is elevated at 15. She is not anemic. Platelet count is 579. Electrolytes demonstrate a sodium of 134 and the potassium of 3.2. Carbon dioxide is 10 and her anion gap is 19. Glucose is 92 and creatinine is 1.26 with a BUN of 7. Troponin is negative. After discussion with the patient, I did order a CT angiogram of the chest. I did review the images myself as well as the radiology report as described above. There is no evidence of pulmonary embolism. There is no pulmonary consolidation. She has no evidence of aortic aneurysm or dissection. I did discuss the test results with the patient. Her QT interval is prolonged likely due to her Zofran use. She states over the past 7 days she has been using it 4-5 times a day. Her previous EKG has not shown a prolonged QT. She remains tachycardic. I did recommend we hospitalize her for IV fluids and further care and evaluation. I did discuss case with the hospitalist and caser in. Impression & Plan Acute dehydration, Tachycardia, Intractable vomiting, Elevated serum creatinine, Acute hypokalemia, XIAO (dyspnea on exertion), Chest pain Discharge Plan Visit Data Chief Complaint: Vomiting Stated Complaint: HAD KNEE REPLACEMENT, VOMITING FOR 2 DAYS, WEAK ED Provider: Anthony Angelo Discharge Problem: Acute dehydration, Tachycardia, Intractable vomiting, Elevated serum creatinin e, Acute hypokalemia, XIAO (dyspnea on exertion), Chest pain Patient Disposition: Being Evaluated by Hospitalist Forms Stand Alone Forms: [facility] Prescriptions Prescriptions: No Action venlafaxine 100 mg tablet 100 mg PO TID Qty: 90 RF: 5 albuterol sulfate 90 mcg/actuation HFA aerosol inhaler 2 puff inhalation Q6H PRN (Reason: shortness of breath or wheezing) Qty: 6.7 RF: 5 montelukast 10 mg tablet 10 mg PO QPM Qty: 90 RF: 3 ondansetron HCl 4 mg tablet 4 mg PO DAILY PRN (Reason: nausea and vomiting) Qty: 30 RF: 1 losartan 25 mg tablet 25 mg PO QAM Qty: 90 RF: 1 oxycodone 5 mg tablet 5 mg PO Q6H PRN (Reason: pain) Qty: 30 RF: 0 ondansetron HCl 4 mg tablet 4 mg PO Q6 PRN (Reason: nausea) Qty: 15 RF: 0 ondansetron HCl 4 mg tablet 4 mg PO Q6 PRN (Reason: nausea) Qty: 15 RF: 0 gabapentin 300 mg capsule 900 mg PO TID Qty: 270 RF: 5 oxycodone 5 mg tablet 5 mg PO Q6H PRN (Reason: pain) Qty: 30 RF: 0 cephalexin 500 mg capsule 500 mg PO TID 10 Days Qty: 30 RF: 0 ferrous sulfate 325 mg (65 mg iron) tablet 325 mg PO QAM Qty: 30 RF: 0 doxepin 25 mg capsule 25 mg PO HS RF: 0 clobetasol 0.05 % cream 1 appln TOP BID PRN (Reason: Dry Skin) RF: 0 cholecalciferol (vitamin D3) 25 mcg (1,000 unit) tablet 1,000 unit PO QAM RF: 0 cyanocobalamin (vitamin B-12) 1,000 mcg capsule 1,000 mcg PO QAM RF: 0 levothyroxine 137 mcg tablet 137 mcg PO QAM RF: 0 hydroxyzine HCl 50 mg tablet 100 mg PO BID PRN (Reason: itching) RF: 0 omeprazole 10 mg capsule,delayed release(DR/EC) 10 mg PO QAM RF: 0 mirtazapine 45 mg tablet 45 mg PO HS RF: 0 metoprolol succinate 25 mg tablet extended release 24 hr 25 mg PO QAM RF: 0 chlorpheniramine maleate 4 mg Tablet 4 mg PO Q4H PRN (Reason: Allergy Symptoms) RF: 0 diphenhydramine HCl [Benadryl] 25 mg Capsule 25 mg PO TID PRN (Reason: Allergy Symptoms) RF: 0 acetaminophen 650 mg Tablet Extended Release 1,950 mg PO TID RF: 0 ibuprofen 200 mg Tablet 800 mg PO BID PRN (Reason: Pain) RF: 0 sumatriptan succinate [Imitrex] 100 mg tablet 100 mg PO .COMPLEX RF: 0 oxycodone 5 mg Tablet 5 mg PO Q4H PRN (Reason: pain) Qty: 60 RF: 0 aspirin 81 mg Tablet,Delayed Release (Dr/Ec) 81 mg PO BID 42 Days Qty: 84 RF: 0 Referrals Referrals: Werner Chapin MD [Primary Care Provider] - Discharge Problem: Intractable vomiting Qualifiers: Vomiting type: unspecified Nausea presence: with nausea Qualified Code(s): R11.2 - Nausea with vomiting, unspecified Chest pain Qualifiers: Chest pain type: unspecified Qualified Code(s): R07.9 - Chest pain, unspecified
[2020-10-17] MEDS ORDERED: OPTIRAY 320 125ml IV ONE (23:47)
[2020-10-18 00:18] LABS: Troponin I < 0.015 ng/ml (0-0.045)
--- NOTE | 2020-10-18 02:22 | History & Physical Report ---
Date of Service October 18, 2020 Assessment & Plan (1) Intractable vomiting: Plan: 50-year-old female with multiple medical problems presenting with 8 days of intractable nausea/dry heaving and p.o. intolerance. Only able to tolerate small sips of water over the last several days. Patient had been on Keflex for cellulitis of the right lower extremity which worsened the symptoms however, they have persisted despite being off this medication. Concern for infection as possible cause of nausea. Patient with prolonged QT. Will avoid further use of Zofran or other QT prolonging agents. Consider Ativan or dexamethasone if medication needed for nausea (2) XIAO (dyspnea on exertion): Plan: Etiology unclear. Patient is visibly tachypneic on exam. Adequate oxygenation on room air. Lungs are clear, CTA is unremarkable. Supplemental oxygen as needed VBG ordered Albuterol nebs as needed (3) Status post right knee replacement: Plan: Patient status post right knee replacement performed on 09/21/[address] Gentile. Concern for surgical site infection at this time. She has a small amount of wound dehiscence with purulent drainage. Send blood cultures x2 sets Check procalcitonin Cefazolin 1 g IV every 8 hours Orthopedic consultation appreciated Concern for early sepsis. Patient with neutrophil predominant leukocytosis as well as lymphopenia and elevated platelets. She has anion gap metabolic acidosis with serum bicarbonate of 10. 3/4 SIRS criteria met with suspected source being right knee. qSOFA = 1 Blood cultures, procalcitonin, lactate and VBG as above IV fluids with LR at 125 mL/h Antibiotics with cefazolin 1 g IV every 8 Orthopedics consultation as above (4) Acute dehydration: Plan: Patient appears dry on clinical exam. Reports that she has had very little p.o. intake for the last 8+ days. She is hypokalemic as well Check magnesium and phosphorus LR at 125 mL/h x 2 L +20 mEq of KCl (5) Hypothyroidism: Plan: Chronic. TSH within normal range on 09/12/2020 at 2.3. Continue Synthroid (6) Hypertension: Plan: Blood pressure elevated. Continue losartan Continue metoprolol Continue to monitor (7) Depression: Plan: Chronic. Continue doxepin Continue venlafaxine (8) Anxiety disorder: Plan: Chronic. Stable. Continue venlafaxine History of Present Illness Chief Complaint: SOB Primary Care Provider: Werner Chapin MD Idania Awad is a 50yo female with multiple medical problems presenting with nausea, po intolerance x 8 days. Patient had a right TKA performed by Dr. Gentile on 09/21/20. The surgery was well tolerated with no immediate complications identified. She was discharged home in stable condition on 09/22/20. Patient was seen in followup on 10/03/20 and noted to have cellulitis of the right ankle and calf as well as a small amount of bloody discharge in the inferior portion of her surgical incision. She was started on Keflex 500mg po TID x 10 day course for treatment of cellulitis. Patient states she took the Keflex only for 7 days as she developed severe nausea. Nausea has persisted despite being off Keflex. She reports she is only able to tolerate small sips of water. She has had dry heaving and a small amount of diarrhea. She has been taking Zofran at home 4-5 times daily without improvement in nausea. Three days ago she developed significant XIAO - becoming short of breath with ambulating only short distances in her home. Also developed chest tightness and pain. No additional complaints at this time. ER Course: Benadryl, Zofran, NSS Allergies Allergy/AdvReac Type Severity Reaction Status Date / Time adhesive Allergy Severe Skin Verified 10/03/20 14:09 tearing (can toleratere tega-derm) Sulfa (Sulfonamide Allergy Severe Rash Verified 10/03/20 14:09 Antibiotics) nitrofurantoin Allergy Intermediate Hives Verified 10/03/20 14:09 enalapril AdvReac Mild Cough Verified 10/03/20 14:09 pine trees Allergy Intermediate Itching, Uncoded 10/03/20 14:09 sneezing Home Medications Medication Instructions Recorded Confirmed Type ferrous sulfate 325 mg (65 mg 325 mg PO QAM #30 tab 11/10/18 10/03/20 History iron) tablet venlafaxine 100 mg tablet 100 mg PO TID #90 tab 11/29/19 10/03/20 Rx albuterol sulfate 90 mcg/actuation 2 puff INHALATION Q6H PRN #6.7 gm 04/13/20 10/03/20 Rx aerosol inhaler montelukast 10 mg tablet 10 mg PO QPM #90 tab 08/13/20 10/03/20 Rx ondansetron HCl 4 mg tablet 4 mg PO DAILY PRN #30 tab 08/20/20 10/03/20 Rx acetaminophen 650 mg 1,950 mg PO TID 09/04/20 10/03/20 History tablet,extended release chlorpheniramine maleate 4 mg 4 mg PO Q4H PRN 09/04/20 10/03/20 History tablet cholecalciferol (vitamin D3) 25 1,000 unit PO QAM 09/04/20 10/03/20 History mcg (1,000 unit) tablet clobetasol 0.05 % topical cream 1 appln TOP BID PRN 09/04/20 10/03/20 History cyanocobalamin (vitamin B-12) 1,000 mcg PO QAM 09/04/20 10/03/20 History 1,000 mcg capsule diphenhydramine HCl 25 mg capsule 25 mg PO TID PRN 09/04/20 10/03/20 History (Benadryl) doxepin 25 mg capsule 25 mg PO HS 09/04/20 10/03/20 History hydroxyzine HCl 50 mg tablet 100 mg PO BID PRN 09/04/20 10/03/20 History ibuprofen 200 mg tablet 800 mg PO BID PRN 09/04/20 10/03/20 History levothyroxine 137 mcg tablet 137 mcg PO QAM 09/04/20 10/03/20 History metoprolol succinate 25 mg 25 mg PO QAM 09/04/20 10/03/20 History tablet,extended release 24 hr mirtazapine 45 mg tablet 45 mg PO HS 09/04/20 10/03/20 History omeprazole 10 mg capsule,delayed 10 mg PO QAM 09/04/20 10/03/20 History release losartan 25 mg tablet 25 mg PO QAM #90 tab 09/10/20 10/03/20 Rx gabapentin 300 mg capsule 900 mg PO TID #270 cap 09/11/20 10/03/20 Rx sumatriptan succinate 100 mg 100 mg PO .COMPLEX 09/21/20 10/03/20 History tablet (Imitrex) aspirin 81 mg tablet,delayed 81 mg PO BID 42 Days #84 tab 09/22/20 10/03/20 Rx release oxycodone 5 mg tablet 5 mg PO Q4H PRN #60 tab 09/22/20 10/03/20 Rx oxycodone 5 mg tablet 5 mg PO Q6H PRN #30 tab 09/28/20 10/03/20 Rx cephalexin 500 mg capsule 500 mg PO TID 10 Days #30 cap 10/03/20 10/03/20 Rx oxycodone 5 mg tablet 5 mg PO Q6H PRN #30 tab 10/03/20 10/03/20 Rx ondansetron HCl 4 mg tablet 4 mg PO Q6 PRN #15 tab 10/05/20 Rx ondansetron HCl 4 mg tablet 4 mg PO Q6 PRN #15 tab 10/08/20 Rx Past Med/Surg History Medical History Anxiety Aortic aneurysm Thoracic ascending aorta aneurysm (3.7cm/2019), under surveillance by [facility] (Dr. Suarez) > recommend recheck in 2 years Arthritis Asthma Possible - stable Depression Fibromyalgia GERD (gastroesophageal reflux disease) controlled History of suicidal ideation Remotely noted 2014 per records Hypertension Hypothyroidism Migraine Hx Morbid obesity Polysubstance overdose Remotely noted 2014 per records Ventral hernia Surgical History H/O oral surgery History of back surgery For herniation History of cholecystectomy History of cryosurgery History of gastric bypass S/P arthroscopic knee surgery S/P cholecystectomy S/P gastric surgery S/P hernia repair S/P tubal ligation Status post hysteroscopy Family History Grandfather Arthritis Coronary heart disease Dementia Hypertension Myocardial infarction Aunt Breast cancer Grandmother Breast cancer Brother Coronary heart disease Hypertension Daughter Depression Father Obesity Denies family history of Ovarian cancer Prostate cancer Colorectal cancer Social History Smoking Status: Never smoker Second Hand Exposure: No; Hx Alcohol Use: Yes Alcohol type: hard liquor Hx Substance Use: No Preferred Language: French Communication Ability: Effective Job Placement Specialist Required: No Beliefs That Will Affect Care: None marital status: Current Living Situation: Family Current Living Situation Comment: SONS LIVE WITH PT current occupational status: disabled Feels Safe at Home: Yes Dental Care, Regularly: No Physical Activity Frequency: Does not Exercise Seatbelt Use: always Sunscreen Use: Yes Assistive Devices: Glasses and Walker Review of Systems Review of Systems: All systems reviewed & are unremarkable except as noted in HPI & below Physical Exam Physical Exam: General: patient resting comfortably in bed, NAD, mildly ill in appearance, AA&O x 4 Skin: cool, reticular mottling present on arms, legs and abdomen which patient states is her normal, surgical site at right knee with appx 2 cm area of dehiscence with purulent drainage HEENT: NC/AT, PERRL, EOMI, anicteric sclera, conjunctiva without injection, external ear normal to inspection and nontender, nares patent, dry mucus membranes, dentition intact, no oropharyngeal lesions, neck supple, trachea midline, no LAD, no thyromegaly, no JVD Heart: +S1/S2, regular, tachycardic, no m/r/g Lungs: equal air entry bilaterally, no rales/rhonchi/wheezes Abd: +BS, soft, NT/ND, no masses/organomegaly/ascites Ext: warm, 2+ pulses in UE/LE bilaterally, no clubbing/cyanosis or edema, right knee slightly warm to touch with bruising, area of dehiscence as above Neuro: nonfocal, patient AA&O x 4, speech intact, no facial droop, moving all extremities on command with equal strength 5/5 Results & Data Results & Data ([facility]) Vital Signs (Past 12 Hours) Vital Signs Temp Pulse Resp BP Pulse Ox 10/18/20 01:30 108 H 18 163/120 H 10/18/20 01:00 98 10/18/20 00:30 102 H 96 10/18/20 00:03 105 H 24 99 10/17/20 23:31 159/133 H 10/17/20 22:30 100 H 22 151/125 H 100 10/17/20 19:17 36.2 C L 115 H 18 130/100 96 Laboratory Results Laboratory Results WBC 15.08 K/uL (4.8-10.8) H 10/17/20 22:09 RBC 3.81 M/uL (4.2-5.4) L 10/17/20 22:09 Hgb 12.3 g/dL (12.0-16.0) 10/17/20 22:09 Hct 39.1 % (37-47) 10/17/20 22:09 MCV 102.6 fL (80-100) H 10/17/20 22:09 MCH 32.3 pg (25-34) 10/17/20 22:09 MCHC 31.5 g/dL (32-36) L 10/17/20 22:09 RDW Std Deviation 71.7 fL (36.4-46.3) H 10/17/20 22:09 RDW Coeff of Janet 19.5 % (11.5-14.5) H 10/17/20 22:09 Plt Count 579 K/uL (130-400) H 10/17/20 22:09 MPV 10.3 fL (7.4-10.4) 10/17/20 22:09 Immature Gran % (Auto) 0.4 % 10/17/20 22:09 Neut % (Auto) 81.0 % 10/17/20 22:09 Lymph % (Auto) 6.0 % 10/17/20 22:09 [place] % (Auto) 11.7 % 10/17/20 22:09 Eos % (Auto) 0.7 % 10/17/20 22:09 Baso % (Auto) 0.2 % 10/17/20 22:09 Neut # (Auto) 12.22 K/uL (1.4-6.5) H 10/17/20 22:09 Lymph # (Auto) 0.90 K/uL (1.2-3.4) L 10/17/20 22:09 [place] # (Auto) 1.76 K/uL (0.11-0.59) H 10/17/20 22:09 Eos # (Auto) 0.11 K/uL (0-0.5) 10/17/20 22:09 Baso # (Auto) 0.03 K/uL (0-0.2) 10/17/20 22:09 Immature Gran # (Auto) 0.06 K/uL (0.00-0.02) H 10/17/20 22:09 Absolute Nucleated RBC 0.02 K/uL (0-0) H 10/17/20 22:09 Nucleated RBC % (auto) 0.1 % 10/17/20 22:09 Sodium 134 mmol/L (136-145) L 10/17/20 22:09 Potassium 3.2 mmol/L (3.5-5.1) L 10/17/20 22:09 Chloride 105 mmol/L (98-107) 10/17/20 22:09 Carbon Dioxide 10 mmol/L (21-32) L 10/17/20 22:09 Anion Gap 19.0 (3-11) H 10/17/20 22:09 BUN 7 mg/dl (7-18) 10/17/20 22:09 Creatinine 1.26 mg/dl (0.6-1.2) H 10/17/20 22:09 Est Cr Clr Drug Dosing 64.3 ml/min 10/17/20 22:09 Est GFR ( Amer) 57.9 ml/min 10/17/20 22:09 Est GFR (Non-Af Amer) 50.0 ml/min 10/17/20 22:09 BUN/Creatinine Ratio 5.8 (10-20) L 10/17/20 22:09 Glucose 92 mg/dl (70-99) 10/17/20 22:09 Calcium 9.8 mg/dl (8.5-10.1) 10/17/20 22:09 Total Bilirubin 0.5 mg/dl (0.2-1) 10/17/20 22:09 AST 25 U/L (15-37) 10/17/20 22:09 ALT 17 U/L (12-78) 10/17/20 22:09 Alkaline Phosphatase 325 U/L (45-117) H 10/17/20 22:09 Troponin I < 0.015 ng/ml (0-0.045) 10/17/20 22:09 Total Protein 7.8 gm/dl (6.4-8.2) 10/17/20 22:09 Albumin 3.4 gm/dl (3.4-5.0) 10/17/20 22:09 Globulin 4.4 gm/dl (2.5-4.0) H 10/17/20 22:09 Albumin/Globulin Ratio 0.8 (0.9-2) L 10/17/20 22:09 Specimen Hemolysis 10/17/20 22:09 COVID-19 Eval Order Covid19 at [facility] 10/18/20 01:25 SARS-CoV-2 (PCR) NEGATIVE (Negative) 10/18/20 01:25 Diagnostic Findings CTA chest: Per stat readexamination is limited by low lung volumes and respiratory motion, particularly in the lower lobes. No definite acute pulmonary embolism is visualized. No evidence of right heart strain. No focal consolidation, pleural effusion or pneumothorax. Resolution of previously demonstrated groundglass opacities in the right apex. No aortic aneurysm or dissection. Postsurgical changes of the stomach. ECG Additional Comments: EKG with ST at 108, DX=294, QRS=98, VYa=282 - Nonspecific ST and T wave abnormality present in lateral leads Code Status & VTE Plan VTE Prophylaxis Plan VTE Prophylaxis will be ordered: Yes PG Care Time/CCT Total # of Minutes Spent Total Time Spent with Patient: Total time spent is greater than 50% in coordination of care (as documented) at patient's floor/unit and/or counseling patient: Coding Level of Care Code INT OBSERVATION CARE 70M LVL 3 Diagnoses XIAO (dyspnea on exertion) R06.00 Status post right knee replacement Z96.651 Hypothyroidism E03.9 Hypertension I10 Depression F32.9 Anxiety disorder F41.9 Acute dehydration E86.0 Intractable vomiting R11.2 Nausea presence: with nausea Vomiting type: unspecified (1) Intractable vomiting Nausea presence: with nausea Vomiting type: unspecified Qualified Code(s): R11.2 - Nausea with vomiting, unspecified
[2020-10-18] MEDS ORDERED: ceFAZolin 1000MG 1,000 MG/7.5 ML SYR IV SCH (02:27)
[2020-10-18 03:01] LABS: Base Excess VBG -18.2 mEq/L; HCO3 VBG 9 mmol/L; PCO2 VBG 24 mmHg (38-50); PO2 VBG 28 mmHg; pH VBG 7.17 (7.36-7.41)
[2020-10-18 03:02] LABS: Oxygen Saturation VBG < 60.0 %
[2020-10-18] MEDS ORDERED: ALBUTEROL 0.5% NEB SOLN 2.5 MG/0.5 ML VIAL NEB PRN (03:54)
[2020-10-18] MEDS ORDERED: ALBUTEROL 0.083% NEBU SOLN 3 ML VIAL INH PRN (04:04)
[2020-10-18 04:13] LABS: Magnesium 2.3 mg/dl (1.8-2.4); Phosphorus 3.6 mg/dl (2.5-4.9)
[2020-10-18] MEDS: POTASSIUM CHLORIDE 20 MEQ in LACTATED RINGER'S 1,000 ML IV SCH ×2 (04:53→13:49)
[2020-10-18] MEDS ORDERED: VANCOMYCIN CONSULT ACTIVE PRN (04:58)
[2020-10-18] MEDS ORDERED: SUMAtriptan succinate 100 MG TAB PO PRN (05:00)
[2020-10-18] MEDS ORDERED: ACETAMINOPHEN 325 MG TAB ONE (05:05)
[2020-10-18] MEDS: ACETAMINOPHEN 325 MG TAB PO PRN ×2 (05:37→15:25)
[2020-10-18] MEDS ORDERED: VANCOMYCIN HCL 2,250 MG in SODIUM CHLORIDE 0.9% 500 ML IV ONE (05:45)
[2020-10-18] MEDS: cefTRIAXone SODIUM 2,000 MG in DEXTROSE 5% 50 ML IV SCH (05:59)
[2020-10-18] MEDS: LEVOTHYROXINE SODIUM 137 MCG TABLET PO SCH (06:46)
[2020-10-18] MEDS ORDERED: ACETAMINOPHEN 1000 MG/100 ML IV IV PRN (08:42)
[2020-10-18] MEDS ORDERED: ONDANSETRON INJ 2 MG/ML 2 ML VIAL IV PRN (08:42)
[2020-10-18] MEDS ORDERED: ONDANSETRON INJ 2 MG/ML 2 ML VIAL ONE ×2 (08:49→15:05)
[2020-10-18 09:13] LABS: Basophils # (auto) 0.03 K/uL (0-0.2); Basophils % (auto) 0.2 %; Eosinophils # (auto) 0.23 K/uL (0-0.5); Eosinophils % (auto) 1.6 %; Hematocrit (blood only) 37.1 % (37-47); Hemoglobin 11.8 g/dL (12.0-16.0); Immature Granulocytes # (auto) 0.14 K/uL (0.00-0.02); Lymphocytes # (auto) 1.42 K/uL (1.2-3.4); Lymphocytes % (auto) 9.7 %; Mean Corpuscular Hemoglobin 32.7 pg (25-34); Mean Corpuscular Volume 102.8 fL (80-100); Mean Platelet Volume 10.3 fL (7.4-10.4); Monocytes # (auto) 1.73 K/uL (0.11-0.59); Monocytes % (auto) 11.8 %; Neutrophils # (auto) 11.06 K/uL (1.4-6.5); Neutrophils % (auto) 75.7 %; Platelet Count 535 K/uL (130-400); RDW Coefficient of Variation 19.5 % (11.5-14.5); RDW Standard Deviation 71.8 fL (36.4-46.3); Red Blood Count 3.61 M/uL (4.2-5.4); White Blood Count 14.61 K/uL (4.8-10.8)
[2020-10-18 09:19] LABS: Mean Corpuscular Hgb Conc 31.8 g/dL (32-36)
--- NOTE | 2020-10-18 09:30 | CT Scan Report ---
CT ANGIOGRAPHY OF THE CHEST, PULMONARY EMBOLUS PROTOCOL CLINICAL HISTORY: Chest pain. Shortness of breath. Evaluate for pulmonary embolus. COMPARISON STUDY: Chest CT June 25, 2020. TECHNIQUE: Following IV administration of 91 mL of Optiray, helical axial images of the chest were ob tained utilizing the pulmonary embolus protocol. Maximal intensity projections and sagittal and quirino nal reformats were viewed on an independent 3D workstation. IV contrast was administered without com plication. Automated exposure control was utilized for the study. A dose lowering technique was uti lized adhering to the principles of ALARA. CT DOSE: 593.87 mGy.cm FINDINGS: No pulmonary emboli are identified although evaluation of the lower lobe pulmonary arterie s is significantly compromised by respiratory motion. Mild dilatation of the ascending aorta, measuri ng 3.9 cm, is unchanged since prior exam. There is no evidence for thoracic aortic dissection. There is no pericardial effusion. No enlarged thoracic duct is are present. Lungs are suboptimally assessed due to respiratory motion but there is no consolidation. There is no pneumothorax or pleural effusio n. Postoperative findings within the stomach are partially imaged. The gallbladder surgically absent. IMPRESSION: 1. Exam significantly compromised by respiratory motion. No pulmonary emboli identified although eval uation of the lower lobe arteries is nearly nondiagnostic. 2. No consolidation to suggest pneumonia. 3. Stable mild dilatation of the ascending aorta, measuring 3.9 cm. No thoracic aortic dissection. ACT 112: Negative or not required by law. Electronically signed by: Jonathan Jacobo M.D. 10/18/2020 9:29 AM
[2020-10-18] MEDS: METOPROLOL SUCC 25MG EXT REL TAB PO SCH (09:48)
[2020-10-18] MEDS: GABAPENTIN 300 MG CAP PO SCH ×3 (09:49→22:08)
[2020-10-18] MEDS: PANTOprazole 40 MG TAB PO SCH (09:49)
[2020-10-18] MEDS: VENLAFAXINE HCL 50 MG TAB PO SCH ×3 (09:49→22:09)
--- NOTE | 2020-10-18 10:05 | Hospitalist Progress Note ---
Date of Service October 18, 2020 Assessment & Plan (1) Sepsis: Plan: Idania Awad is a 50-year-old female with past medical of hypertension, hypothyroidism, s/p right total knee arthroplasty; who presents for concerns of intractable nausea and vomiting over the last 10 days. Sepsis: -On presentation to ED patient with tachypnea, tachycardia, and elevated WBC (3/4 SIRS); qSOFA (1/3) -Lactate on admission of 2.2 -Potentially secondary to septic joint -Patient is status post right total knee arthroplasty in August -Orthopedic surgery consulted for potential I&D; planned I&D in a.m. -Blood cultures pending (drawn approximately 30 minutes after Ancef was given) -Started on vancomycin and Rocephin; given concern for renal function and potential distribution transition to daptomycin with continuation of Rocephin -Wound cultures drawn by Ortho -Infectious disease consult given concern for septic joint status post total knee arthroplasty Anion gap metabolic acidosis: -In ED patient subsequently had a pH of 7.17 on VBG, with bicarb of 10 and CO2 of 24 likely acidosis -Anion gap of 19 on admission repeat in the a.m. was 18 -Lactate of 2.2, with beta hydroxybutyrate of 46 -Demonstrating mixed picture of metabolic acidosis in the setting of poor oral intake for several days as well as sepsis -With correction of lactic acidosis and sepsis in addition to improvement in oral intake expect that anion gap will continue to resolve Hypokalemia: -On admission K of 3.2; recheck in a.m. of 2.6 -Likely secondary to persistent nausea and vomiting -Attempted repletion with K riders, however patient was unable to tolerate -Continue to utilize 40 mEq of KCl in LR while n.p.o. for surgery -Recheck in a.m. Intractable nausea: -Persistent nausea with associated vomiting during admission -Inability to tolerate oral intake for several days prior to admission -Unable to utilize Zofran, Phenergan, or Compazine in the setting of QTC prolongation on EKG on admission -Repeat EKG demonstrating QTC of 462; however will hold off on QT prolonging agents -IV Benadryl PRN for nausea or vomiting Hypertension: -Hold home antihypertensive regimen in anticipation of surgery in a.m. Hypothyroidism: -Hold home Synthroid while n.p.o. for surgery FEN/GI: N.p.o. for surgery, lactated Ringer's with 40 mEq of KCl CODE STATUS: Full code DVT prophylaxis: Heparin SQ (2) Status post right knee replacement: (3) Metabolic acidosis, increased anion gap: (4) Hypertension: (5) Hypothyroidism: (6) Intractable vomiting: Admission and Anticipated Discharge Date Admission Date: October 18, 2020 Supervising Physician Co-Signing Physician Notes Resident Physician Supervision Note: I independently interviewed and examined the patient and verified the stiles history and physical, reviewed labs and image studies and agree with resident Dr. Grimm findings and care plan. Subjective Feeling slightly better this morning, will continue to feel feverish and had associated chills and sweats, not having pain with her knee or across her joint but does have pain when things are touching around her knee. She needs to have drainage from incision site. Review of Systems Review of Systems: All systems reviewed & are unremarkable except as noted in Subjective Physical Exam Constitutional: WD/WN, vitals as above Eyes: PERRL, conjunctivae normal, anicteric sclerae Respiratory: normal respiratory effort, lungs clear to auscultation Auscultation: no crackles, no rales, no rhonchi and no wheezes Cardiovascular: Rate/Rhythm: regular rate and regular rhythm Heart Sounds: no gallop, no murmur and no cardiac rub Vessels: normal peripheral pulses; no JVD Extremities: no edema Gastrointestinal (Abdomen): Inspection/Auscultation: normal bowel sounds; abdomen not distended Percussion/Palpation: abdomen soft; abdomen nontender and no guarding Musculoskeletal: Trace effusion of the right knee, with 1 to 2 cm dehiscence of inferior aspect of surgical incision; purulent expression on palpation of surrounding tissues; intact range of motion of right knee without pain. Skin: Induration and tenderness around surgical incision site (inferior aspect) and proximal third of the tibia; proximal incision well approximated, with no induration or tenderness to palpation. Psychiatric: Orientation: alert and oriented x 3 Results & Data Results & Data ([facility]) Vital Signs (Past 12 Hours) Vital Signs Temp Pulse Pulse Resp BP BP Pulse Ox 10/18/20 04:02 101 H 140/109 H 99 10/18/20 04:01 36.8 C 108 H 24 148/115 H 100 10/18/20 03:30 78 20 155/99 H 93 10/18/20 01:30 108 H 18 163/120 H 10/18/20 01:00 98 10/18/20 00:30 102 H 96 10/18/20 00:03 105 H 24 99 10/17/20 23:31 159/133 H 10/17/20 22:30 100 H 22 151/125 H 100 Laboratory Results 10/18/20 10/18/20 10/18/20 Range/Units 16:00 09:58 05:55 WBC 14.61 H (4.8-10.8) K/uL RBC 3.61 L (4.2-5.4) M/uL Hgb 11.8 L (12.0-16.0) g/dL Hct 37.1 (37-47) % MCV 102.8 H (80-100) fL MCH 32.7 (25-34) pg MCHC 31.8 L (32-36) g/dL RDW Std Deviation 71.8 H (36.4-46.3) fL RDW Coeff of Janet 19.5 H (11.5-14.5) % Plt Count 535 H (130-400) K/uL MPV 10.3 (7.4-10.4) fL Immature Gran % (Auto) 1.0 % Neut % (Auto) 75.7 % Lymph % (Auto) 9.7 % [place] % (Auto) 11.8 % Eos % (Auto) 1.6 % Baso % (Auto) 0.2 % Neut # (Auto) 11.06 H (1.4-6.5) K/uL Lymph # (Auto) 1.42 (1.2-3.4) K/uL [place] # (Auto) 1.73 H (0.11-0.59) K/uL Eos # (Auto) 0.23 (0-0.5) K/uL Baso # (Auto) 0.03 (0-0.2) K/uL Immature Gran # (Auto) 0.14 H (0.00-0.02) K/uL Absolute Nucleated RBC (0-0) K/uL Nucleated RBC % (auto) % VBG pH (7.36-7.41) VBG pCO2 (38-50) mmHg VBG pO2 mmHg VBG HCO3 mmol/L VBG O2 Saturation % VBG Base Excess mEq/L Barometric Pressure mm/Hg Sodium 137 (136-145) mmol/L Potassium 2.6 L D (3.5-5.1) mmol/L Chloride 111 H (98-107) mmol/L Carbon Dioxide 8 L* (21-32) mmol/L Anion Gap 18.0 H (3-11) BUN 5 L (7-18) mg/dl Creatinine 0.87 D (0.6-1.2) mg/dl Est Cr Clr Drug Dosing 93.1 ml/min Est GFR ( Amer) 90.7 ml/min Est GFR (Non-Af Amer) 78.2 ml/min BUN/Creatinine Ratio 5.9 L (10-20) Glucose 88 (70-99) mg/dl Lactate (0.4-2.0) mmol/L Calcium 9.1 (8.5-10.1) mg/dl Phosphorus (2.5-4.9) mg/dl Magnesium (1.8-2.4) mg/dl Total Bilirubin (0.2-1) mg/dl AST (15-37) U/L ALT (12-78) U/L Alkaline Phosphatase (45-117) U/L Troponin I (0-0.045) ng/ml Total Protein (6.4-8.2) gm/dl Albumin (3.4-5.0) gm/dl Globulin (2.5-4.0) gm/dl Albumin/Globulin Ratio (0.9-2) Beta-Hydroxybutyric Acd (0.2-2.81) mg/dl Procalcitonin (0-0.5) ng/ml Specimen Hemolysis Fluid Comment Synovial Source KNEE Synovial Color PRAMOD Synovial Appearance CLOUDY Synovial WBC 1527 H (0-200) /ul [place] [address] /uL Synovial Polynuclear % 51.2 % Synovial Mononuclear % 48.8 % COVID-19 Eval Order SARS-CoV-2 (PCR) (Negative) 10/18/20 10/18/20 10/18/20 Range/Units 05:54 05:54 02:45 WBC (4.8-10.8) K/uL RBC (4.2-5.4) M/uL Hgb (12.0-16.0) g/dL Hct (37-47) % MCV (80-100) fL MCH (25-34) pg MCHC (32-36) g/dL RDW Std Deviation (36.4-46.3) fL RDW Coeff of Janet (11.5-14.5) % Plt Count (130-400) K/uL MPV (7.4-10.4) fL Immature Gran % (Auto) % Neut % (Auto) % Lymph % (Auto) % [place] % (Auto) % Eos % (Auto) % Baso % (Auto) % Neut # (Auto) (1.4-6.5) K/uL Lymph # (Auto) (1.2-3.4) K/uL [place] # (Auto) (0.11-0.59) K/uL Eos # (Auto) (0-0.5) K/uL Baso # (Auto) (0-0.2) K/uL Immature Gran # (Auto) (0.00-0.02) K/uL Absolute Nucleated RBC (0-0) K/uL Nucleated RBC % (auto) % VBG pH (7.36-7.41) VBG pCO2 (38-50) mmHg VBG pO2 mmHg VBG HCO3 mmol/L VBG O2 Saturation % VBG Base Excess mEq/L Barometric Pressure mm/Hg Sodium (136-145) mmol/L Potassium (3.5-5.1) mmol/L Chloride (98-107) mmol/L Carbon Dioxide (21-32) mmol/L Anion Gap (3-11) BUN (7-18) mg/dl Creatinine (0.6-1.2) mg/dl Est Cr Clr Drug Dosing ml/min Est GFR ( Amer) ml/min Est GFR (Non-Af Amer) ml/min BUN/Creatinine Ratio (10-20) Glucose (70-99) mg/dl Lactate (0.4-2.0) mmol/L Calcium (8.5-10.1) mg/dl Phosphorus (2.5-4.9) mg/dl Magnesium (1.8-2.4) mg/dl Total Bilirubin (0.2-1) mg/dl AST (15-37) U/L ALT (12-78) U/L Alkaline Phosphatase (45-117) U/L Troponin I < 0.015 (0-0.045) ng/ml Total Protein (6.4-8.2) gm/dl Albumin (3.4-5.0) gm/dl Globulin (2.5-4.0) gm/dl Albumin/Globulin Ratio (0.9-2) Beta-Hydroxybutyric Acd 45.03 H (0.2-2.81) mg/dl Procalcitonin 12.15 H (0-0.5) ng/ml Specimen Hemolysis Fluid Comment Synovial Source Synovial Color Synovial Appearance Synovial WBC (0-200) /ul Synovial RBC /uL Synovial Polynuclear % % Synovial Mononuclear % % COVID-19 Eval Order SARS-CoV-2 (PCR) (Negative) 10/18/20 10/18/20 10/18/20 Range/Units 02:45 02:45 01:25 WBC (4.8-10.8) K/uL RBC (4.2-5.4) M/uL Hgb (12.0-16.0) g/dL Hct (37-47) % MCV (80-100) fL MCH (25-34) pg MCHC (32-36) g/dL RDW Std Deviation (36.4-46.3) fL RDW Coeff of Janet (11.5-14.5) % Plt Count (130-400) K/uL MPV (7.4-10.4) fL Immature Gran % (Auto) % Neut % (Auto) % Lymph % (Auto) % [place] % (Auto) % Eos % (Auto) % Baso % (Auto) % Neut # (Auto) (1.4-6.5) K/uL Lymph # (Auto) (1.2-3.4) K/uL [place] # (Auto) (0.11-0.59) K/uL Eos # (Auto) (0-0.5) K/uL Baso # (Auto) (0-0.2) K/uL Immature Gran # (Auto) (0.00-0.02) K/uL Absolute Nucleated RBC (0-0) K/uL Nucleated RBC % (auto) % VBG pH 7.17 L (7.36-7.41) VBG pCO2 24 L (38-50) mmHg VBG pO2 28 mmHg VBG HCO3 9 mmol/L VBG O2 Saturation < 60.0 % VBG Base Excess -18.2 mEq/L Barometric Pressure 735.6 mm/Hg Sodium (136-145) mmol/L Potassium (3.5-5.1) mmol/L Chloride (98-107) mmol/L Carbon Dioxide (21-32) mmol/L Anion Gap (3-11) BUN (7-18) mg/dl Creatinine (0.6-1.2) mg/dl Est Cr Clr Drug Dosing ml/min Est GFR ( Amer) ml/min Est GFR (Non-Af Amer) ml/min BUN/Creatinine Ratio (10-20) Glucose (70-99) mg/dl Lactate 2.2 H* (0.4-2.0) mmol/L Calcium (8.5-10.1) mg/dl Phosphorus (2.5-4.9) mg/dl Magnesium (1.8-2.4) mg/dl Total Bilirubin (0.2-1) mg/dl AST (15-37) U/L ALT (12-78) U/L Alkaline Phosphatase (45-117) U/L Troponin I (0-0.045) ng/ml Total Protein (6.4-8.2) gm/dl Albumin (3.4-5.0) gm/dl Globulin (2.5-4.0) gm/dl Albumin/Globulin Ratio (0.9-2) Beta-Hydroxybutyric Acd (0.2-2.81) mg/dl Procalcitonin (0-0.5) ng/ml Specimen Hemolysis Fluid Comment Synovial Source Synovial Color Synovial Appearance Synovial WBC (0-200) /ul Synovial RBC /uL Synovial Polynuclear % % Synovial Mononuclear % % COVID-19 Eval Order SARS-CoV-2 (PCR) NEGATIVE (Negative) 10/18/20 10/17/20 10/17/20 Range/Units 01:25 22:09 22:09 WBC 15.08 H (4.8-10.8) K/uL RBC 3.81 L (4.2-5.4) M/uL Hgb 12.3 (12.0-16.0) g/dL Hct 39.1 (37-47) % MCV 102.6 H (80-100) fL MCH 32.3 (25-34) pg MCHC 31.5 L (32-36) g/dL RDW Std Deviation 71.7 H (36.4-46.3) fL RDW Coeff of Janet 19.5 H (11.5-14.5) % Plt Count 579 H (130-400) K/uL MPV 10.3 (7.4-10.4) fL Immature Gran % (Auto) 0.4 % Neut % (Auto) 81.0 % Lymph % (Auto) 6.0 % [place] % (Auto) 11.7 % Eos % (Auto) 0.7 % Baso % (Auto) 0.2 % Neut # (Auto) 12.22 H (1.4-6.5) K/uL Lymph # (Auto) 0.90 L (1.2-3.4) K/uL [place] # (Auto) 1.76 H (0.11-0.59) K/uL Eos # (Auto) 0.11 (0-0.5) K/uL Baso # (Auto) 0.03 (0-0.2) K/uL Immature Gran # (Auto) 0.06 H (0.00-0.02) K/uL Absolute Nucleated RBC 0.02 H (0-0) K/uL Nucleated RBC % (auto) 0.1 % VBG pH (7.36-7.41) VBG pCO2 (38-50) mmHg VBG pO2 mmHg VBG HCO3 mmol/L VBG O2 Saturation % VBG Base Excess mEq/L Barometric Pressure mm/Hg Sodium 134 L (136-145) mmol/L Potassium 3.2 L (3.5-5.1) mmol/L Chloride 105 (98-107) mmol/L Carbon Dioxide 10 L (21-32) mmol/L Anion Gap 19.0 H (3-11) BUN 7 (7-18) mg/dl Creatinine 1.26 H (0.6-1.2) mg/dl Est Cr Clr Drug Dosing 64.3 ml/min Est GFR ( Amer) 57.9 ml/min Est GFR (Non-Af Amer) 50.0 ml/min BUN/Creatinine Ratio 5.8 L (10-20) Glucose 92 (70-99) mg/dl Lactate (0.4-2.0) mmol/L Calcium 9.8 (8.5-10.1) mg/dl Phosphorus 3.6 (2.5-4.9) mg/dl Magnesium 2.3 (1.8-2.4) mg/dl Total Bilirubin 0.5 (0.2-1) mg/dl AST 25 (15-37) U/L ALT 17 (12-78) U/L Alkaline Phosphatase 325 H (45-117) U/L Troponin I < 0.015 (0-0.045) ng/ml Total Protein 7.8 (6.4-8.2) gm/dl Albumin 3.4 (3.4-5.0) gm/dl Globulin 4.4 H (2.5-4.0) gm/dl Albumin/Globulin Ratio 0.8 L (0.9-2) Beta-Hydroxybutyric Acd (0.2-2.81) mg/dl Procalcitonin (0-0.5) ng/ml Specimen Hemolysis Fluid Comment Synovial Source Synovial Color Synovial Appearance Synovial WBC (0-200) /ul Synovial RBC /uL Synovial Polynuclear % % Synovial Mononuclear % % COVID-19 Eval Order Covid19 at [facility] SARS-CoV-2 (PCR) (Negative) Medications Administered Current Inpatient Medications Acetaminophen (Acetaminophen 325 Mg Tab) 650 mg PO Q4H PRN PRN Reason: Pain Stop: 11/17/20 04:53 Last Admin: 10/18/20 15:25 Dose: 650 mg Documented by: Acetaminophen (Acetaminophen 1000 Mg/100 Ml Iv) 1,000 mg IV Q8H PRN PRN Reason: Pain/fever/headache Stop: 10/21/20 08:41 Albuterol (Albuterol 0.083% Nebu Soln 3 Ml Vial) 2.5 mg INH Q2H PRN PRN Reason: SOB/Wheeze Stop: 11/17/20 04:03 Doxepin HCl (Doxepin Hcl 25 Mg Capsule) 25 mg PO HS DAVE Stop: 11/17/20 20:59 Gabapentin (Gabapentin 300 Mg Cap) 900 mg PO TID DAVE Stop: 11/17/20 08:59 Last Admin: 10/18/20 15:24 Dose: Not Given Documented by: Ceftriaxone Sodium 2,000 mg/ (Dextrose) 70 mls @ 100 mls/hr IV Q24H DAVE; Protocol Stop: 10/25/20 05:59 Last Infusion: 10/18/20 06:42 Dose: Infused Documented by: Daptomycin 450 mg/ Syringe 9 mls @ 4.5 mls/min IV Q24H [facility]; Protocol Stop: 10/25/20 15:59 Last Admin: 10/18/20 17:47 Dose: 4.5 mls/min Documented by: Potassium Chloride 40 meq/ (Lactated Ringer's) 1,020 mls @ 125 mls/hr IV .Q8H10M [facility] Stop: 10/19/20 21:38 Last Admin: 10/18/20 13:45 Dose: 125 mls/hr Documented by: Levothyroxine Sodium (Levothyroxine Sodium 137 Mcg Tablet) 137 mcg PO DAILYBB [facility] Stop: 11/17/20 06:29 Last Admin: 10/18/20 06:46 Dose: 137 mcg Documented by: Metoprolol Succinate (Metoprolol Succ 25mg Ext Rel Tab) 25 mg PO QAM [facility] Stop: 11/17/20 08:59 Last Admin: 10/18/20 09:48 Dose: 25 mg Documented by: Mirtazapine (Mirtazapine Soltab 15 Mg) 45 mg PO HS [facility] Stop: 11/17/20 20:59 Miscellaneous Information (Daptomycin Consult Active) 1 ea N/A UD PRN PRN Reason: Consult Stop: 11/17/20 10:28 Montelukast Sodium (Montelukast Sodium 10 Mg Tablet) 10 mg PO QPM [facility] Stop: 11/17/20 20:59 Pantoprazole Sodium (Pantoprazole 40 Mg Tab) 40 mg PO QAM [facility] Stop: 11/17/20 08:59 Last Admin: 10/18/20 09:49 Dose: 40 mg Documented by: Sumatriptan Succinate (Sumatriptan Succinate 100 Mg Tab) 100 mg PO UD PRN PRN Reason: Migraine Headache Stop: 11/17/20 04:59 Venlafaxine HCl (Venlafaxine Hcl 50 Mg Tab) 100 mg PO TID [facility] Stop: 11/17/20 08:59 Last Admin: 10/18/20 15:24 Dose: Not Given Documented by: Resident Activity Tracking Resident Involvement: Resident Care Provided Care Provided: Adult Hospital Medicine (1) Intractable vomiting Nausea presence: with nausea Vomiting type: unspecified Qualified Code(s): R11.2 - Nausea with vomiting, unspecified
[2020-10-18 10:38] LABS: BUN Creatinine Ratio 5.9 (10-20); Calcium 9.1 mg/dl (8.5-10.1); Creatinine Clr Calc Pharmacy 93.1 ml/min; Est GFR (African American) 90.7 ml/min; Est GFR (Non-African American) 78.2 ml/min; Potassium 2.6 mmol/L (3.5-5.1)
[2020-10-18] MEDS: POTASSIUM CHLORIDE / WTR 10 MEQ/100 ML PLCT IV SCH ×2 (11:08→13:49)
[2020-10-18] MEDS: POTASSIUM CHLORIDE 40 MEQ in LACTATED RINGER'S 1,000 ML IV SCH ×2 (13:45→22:28)
--- NOTE | 2020-10-18 15:51 | Medical Student Progress Note ---
Date of Service October 18, 2020 Assessment & Plan (1) Sepsis: Plan: -tachycardic -tachypneic -elevated procalcitonin 12.15 -elevated lactate 2.2 -pH 7.17, pCO2 24, HCO3- 10, anion gap 19 -blood cultures pending (after initiation of cefazolin in the ED) -white count staying around 15K range -likely secondary to infection around surgical site -continue to monitor vital signs -d/c vancomycin -initiate ceftriaxone 2,000mg IV Q24 -initiate daptomycin 450 mg IV Q24 Present on Admission?: Yes (2) Metabolic acidosis, increased anion gap: Plan: -beta-hydroxybutyric acid markedly elevated to 45.03, suggesting a ketoacidosis -pt unable to keep food down, increase in ketones -likely secondary to lactic acidosis -pH 7.17, pCO2 24, HCO3- 10, anion gap 19 -likely to resolve once underlying infection is managed and lactic acidosis resolved Present on Admission?: Yes (3) Intractable vomiting: Plan: -pt has not been able to tolerate food and is NPO -Zofran contraindicated due to question of long QT syndrome -EKG to assess long QT -continue LR IV fluids Nausea presence: with nausea Vomiting type: unspecified Qualified Code(s): R11.2 - Nausea with vomiting, unspecified Present on Admission?: Yes (4) Hypertension: Plan: -BP's been trending 140's/100's -pt is on home med metoprolol -in light of septic picture, not too concerned on lowering BP to normotensive, concern for hypotension secondary to sepsis -monitor BP closely Present on Admission?: Yes (5) Hypothyroidism: Plan: -chronic stable -continue Synthroid, f/u with PCP after discharge Present on Admission?: Yes Admission and Anticipated Discharge Date Admission Date: October 18, 2020 Beulah Emerson is a 50 yr/oF with extensive medical hx s/p total R knee replacement (09/01) who presented to the ED yesterday with a week long hx of nausea, dry heaving, and vomiting. On arrival her BP's were in the 150s'/120's. She developed cellulitis on her surgical site and was prescribed cephalexin 10 day course. Cephalexin made her nauseas and she d/c the med on day 7. On 10/02, her surgeon felt her cellulitis had resolved. Since 10/07, she had been experiencing dry heaving, nausea, several episodes of vomiting post-prandial, chest pain, and cough. She denies noticing a worsening or new infection around her surgical site. Today, she is still coughing, but her SOB and chest pain are improving. Review of Systems Review of Systems: All systems reviewed & are unremarkable except as noted in HPI & below Physical Exam Constitutional: non acute distress, non-toxic appearance Eyes: + anicteric sclerae Neck: normal visual inspection Respiratory: lungs clear to auscultation, heavy breathing Cardiovascular: RRR, no murmur, no edema Gastrointestinal (Abdomen): normal bowel sounds, soft, nontender, no hepatosplenomegaly Skin: surgical site above distal femur and proximal tibia. Superior incision lacks signs of inflammation. inferior portion of incision has open, purulent drainage. Directly lateral and inferior to the incision (spanning nearly her entire lower R leg) is hyperthermic, firm, and tender to palpation. Results & Data ([facility]) Vital Signs (Past 12 Hours) Vital Signs Temp Pulse Pulse Resp BP BP Pulse Ox 10/18/20 04:02 101 H 140/109 H 99 10/18/20 04:01 36.8 C 108 H 24 148/115 H 100 Laboratory Results Laboratory Results - last 24 hr 10/17/20 10/17/20 10/18/20 22:09 22:09 01:25 WBC 15.08 H RBC 3.81 L Hgb 12.3 Hct 39.1 MCV 102.6 H MCH 32.3 MCHC 31.5 L RDW Std Deviation 71.7 H RDW Coeff of Janet 19.5 H Plt Count 579 H MPV 10.3 Immature Gran % (Auto) 0.4 Neut % (Auto) 81.0 Lymph % (Auto) 6.0 [place] % (Auto) 11.7 Eos % (Auto) 0.7 Baso % (Auto) 0.2 Neut # (Auto) 12.22 H Lymph # (Auto) 0.90 L [place] # (Auto) 1.76 H Eos # (Auto) 0.11 Baso # (Auto) 0.03 Immature Gran # (Auto) 0.06 H Absolute Nucleated RBC 0.02 H Nucleated RBC % (auto) 0.1 VBG pH VBG pCO2 VBG pO2 VBG HCO3 VBG O2 Saturation VBG Base Excess Barometric Pressure Sodium 134 L Potassium 3.2 L Chloride 105 Carbon Dioxide 10 L Anion Gap 19.0 H BUN 7 Creatinine 1.26 H Est Cr Clr Drug Dosing 64.3 Est GFR ( Amer) 57.9 Est GFR (Non-Af Amer) 50.0 BUN/Creatinine Ratio 5.8 L Glucose 92 Lactate Calcium 9.8 Phosphorus 3.6 Magnesium 2.3 Total Bilirubin 0.5 AST 25 ALT 17 Alkaline Phosphatase 325 H Troponin I < 0.015 Total Protein 7.8 Albumin 3.4 Globulin 4.4 H Albumin/Globulin Ratio 0.8 L Beta-Hydroxybutyric Acd Procalcitonin Specimen Hemolysis COVID-19 Eval Order Covid19 at [facility] SARS-CoV-2 (PCR) 10/18/20 10/18/20 10/18/20 01:25 02:45 02:45 WBC RBC Hgb Hct MCV MCH MCHC RDW Std Deviation RDW Coeff of Jaent Plt Count MPV Immature Gran % (Auto) Neut % (Auto) Lymph % (Auto) [place] % (Auto) Eos % (Auto) Baso % (Auto) Neut # (Auto) Lymph # (Auto) [place] # (Auto) Eos # (Auto) Baso # (Auto) Immature Gran # (Auto) Absolute Nucleated RBC Nucleated RBC % (auto) VBG pH 7.17 L VBG pCO2 24 L VBG pO2 28 VBG HCO3 9 VBG O2 Saturation < 60.0 VBG Base Excess -18.2 Barometric Pressure 735.6 Sodium Potassium Chloride Carbon Dioxide Anion Gap BUN Creatinine Est Cr Clr Drug Dosing Est GFR ( Amer) Est GFR (Non-Af Amer) BUN/Creatinine Ratio Glucose Lactate 2.2 H* Calcium Phosphorus Magnesium Total Bilirubin AST ALT Alkaline Phosphatase Troponin I Total Protein Albumin Globulin Albumin/Globulin Ratio Beta-Hydroxybutyric Acd Procalcitonin Specimen Hemolysis COVID-19 Eval Order SARS-CoV-2 (PCR) NEGATIVE 10/18/20 10/18/20 10/18/20 02:45 05:54 05:54 WBC RBC Hgb Hct MCV MCH MCHC RDW Std Deviation RDW Coeff of Janet Plt Count MPV Immature Gran % (Auto) Neut % (Auto) Lymph % (Auto) [place] % (Auto) Eos % (Auto) Baso % (Auto) Neut # (Auto) Lymph # (Auto) [place] # (Auto) Eos # (Auto) Baso # (Auto) Immature Gran # (Auto) Absolute Nucleated RBC Nucleated RBC % (auto) VBG pH VBG pCO2 VBG pO2 VBG HCO3 VBG O2 Saturation VBG Base Excess Barometric Pressure Sodium Potassium Chloride Carbon Dioxide Anion Gap BUN Creatinine Est Cr Clr Drug Dosing Est GFR ( Amer) Est GFR (Non-Af Amer) BUN/Creatinine Ratio Glucose Lactate Calcium Phosphorus Magnesium Total Bilirubin AST ALT Alkaline Phosphatase Troponin I < 0.015 Total Protein Albumin Globulin Albumin/Globulin Ratio Beta-Hydroxybutyric Acd 45.03 H Procalcitonin 12.15 H Specimen Hemolysis COVID-19 Eval Order SARS-CoV-2 (PCR) 10/18/20 10/18/20 05:55 09:58 WBC 14.61 H RBC 3.61 L Hgb 11.8 L Hct 37.1 MCV 102.8 H MCH 32.7 MCHC 31.8 L RDW Std Deviation 71.8 H RDW Coeff of Janet 19.5 H Plt Count 535 H MPV 10.3 Immature Gran % (Auto) 1.0 Neut % (Auto) 75.7 Lymph % (Auto) 9.7 [place] % (Auto) 11.8 Eos % (Auto) 1.6 Baso % (Auto) 0.2 Neut # (Auto) 11.06 H Lymph # (Auto) 1.42 [place] # (Auto) 1.73 H Eos # (Auto) 0.23 Baso # (Auto) 0.03 Immature Gran # (Auto) 0.14 H Absolute Nucleated RBC Nucleated RBC % (auto) VBG pH VBG pCO2 VBG pO2 VBG HCO3 VBG O2 Saturation VBG Base Excess Barometric Pressure Sodium 137 Potassium 2.6 L D Chloride 111 H Carbon Dioxide 8 L* Anion Gap 18.0 H BUN 5 L Creatinine 0.87 D Est Cr Clr Drug Dosing 93.1 Est GFR ( Amer) 90.7 Est GFR (Non-Af Amer) 78.2 BUN/Creatinine Ratio 5.9 L Glucose 88 Lactate Calcium 9.1 Phosphorus Magnesium Total Bilirubin AST ALT Alkaline Phosphatase Troponin I Total Protein Albumin Globulin Albumin/Globulin Ratio Beta-Hydroxybutyric Acd Procalcitonin Specimen Hemolysis COVID-19 Eval Order SARS-CoV-2 (PCR)
--- NOTE | 2020-10-18 16:02 | Orthopedic Consultation ---
Date of Service October 18, 2020 Assessment & Plan (1) Surgical site infection: Right now is difficult to tell whether or not she just has a small wound dehiscence and a little surgical site infection or if it tracks deeper into the knee joint. She is not having any pain in the right knee. I did an aspiration of her right knee at bedside and sent to lab for cell count and cultures. The aspirate looked mostly synovial. She is currently on ceftriaxone and daptomycin. She should be n.p.o. past midnight tonight. I plan to take her to the operating room tomorrow for a I&D and wound closure of the wound dehiscence versus possible polyexchange of I feel the infection goes deeper into the knee joint. Will wait to see within the aspirate labs show. Orthopedics will continue to follow closely. History of Present Illness Reason for Consultation: Surgical site infection right knee. Requesting Physician: . Attending Physician: Mary Kenney MD Idania is a pleasant 50-year-old female who is 4 weeks status post right total knee arthroplasty. She has been doing very well with the right knee. I just saw her in the office 2 days ago and she was doing well. She was not having any pain. Yesterday she began having significant bouts of vomiting. She was feeling ill. She has little bit of discharge from the inferior aspect of her knee wound. She still denies any knee pain. She said her knee feels fine. Unfortunately, her blood work showed some signs of sepsis. She is being a dmitted to the hospitalist service with possible sepsis. There is concerns for a surgical site infection. Orthopedics was consulted to evaluate and treat. Allergies Allergy/AdvReac Type Severity Reaction Status Date / Time adhesive Allergy Severe Skin Verified 10/18/20 03:40 tearing (can toleratere tega-derm) Sulfa (Sulfonamide Allergy Severe Rash Verified 10/18/20 03:40 Antibiotics) nitrofurantoin Allergy Intermediate Hives Verified 10/18/20 03:40 enalapril AdvReac Mild Cough Verified 10/18/20 03:40 cephalexin [From Keflex] AdvReac Nausea Unverified 10/18/20 03:40 pine trees Allergy Intermediate Itching, Uncoded 10/18/20 03:40 sneezing Home Medications Medication Instructions Recorded Confirmed Type ferrous sulfate 325 mg (65 mg 325 mg PO QAM #30 tab 11/10/18 10/18/20 History iron) tablet venlafaxine 100 mg tablet 100 mg PO TID #90 tab 11/29/19 10/18/20 Rx albuterol sulfate 90 mcg/actuation 2 puff INHALATION Q6H PRN #6.7 gm 04/13/20 10/18/20 Rx aerosol inhaler montelukast 10 mg tablet 10 mg PO QPM #90 tab 08/13/20 10/18/20 Rx ondansetron HCl 4 mg tablet 4 mg PO DAILY PRN #30 tab 08/20/20 10/18/20 Rx acetaminophen 650 mg 650 mg PO BID PRN 09/04/20 10/18/20 History tablet,extended release chlorpheniramine maleate 4 mg 4 mg PO Q4H PRN 09/04/20 10/18/20 History tablet cholecalciferol (vitamin D3) 25 1,000 unit PO QAM 09/04/20 10/18/20 History mcg (1,000 unit) tablet clobetasol 0.05 % topical cream 1 appln TOP BID PRN 09/04/20 10/18/20 History cyanocobalamin (vitamin B-12) 1,000 mcg PO QAM 09/04/20 10/18/20 History 1,000 mcg capsule diphenhydramine HCl 25 mg capsule 25 mg PO TID PRN 09/04/20 10/18/20 History (Benadryl) doxepin 25 mg capsule 25 mg PO HS 09/04/20 10/18/20 History hydroxyzine HCl 50 mg tablet 100 mg PO BID PRN 09/04/20 10/18/20 History ibuprofen 200 mg tablet 800 mg PO BID PRN 09/04/20 10/18/20 History levothyroxine 137 mcg tablet 137 mcg PO QAM 09/04/20 10/18/20 History metoprolol succinate 25 mg 25 mg PO QAM 09/04/20 10/18/20 History tablet,extended release 24 hr mirtazapine 45 mg tablet 45 mg PO HS 09/04/20 10/18/20 History omeprazole 10 mg capsule,delayed 10 mg PO QAM 09/04/20 10/18/20 History release losartan 25 mg tablet 25 mg PO QAM #90 tab 09/10/20 10/18/20 Rx gabapentin 300 mg capsule 900 mg PO TID #270 cap 09/11/20 10/18/20 Rx sumatriptan succinate 100 mg 100 mg PO .COMPLEX 09/21/20 10/18/20 History tablet (Imitrex) Past Med/Surg History Medical History Anxiety Aortic aneurysm Thoracic ascending aorta aneurysm (3.7cm/2020), under surveillance by [facility] (Dr. Suarez) > recommend recheck in 2 years Arthritis Asthma Possible - stable Depression Fibromyalgia GERD (gastroesophageal reflux disease) controlled History of suicidal ideation Remotely noted 2014 per records Hypertension Hypothyroidism Migraine Hx Morbid obesity Polysubstance overdose Remotely noted 2014 per records Sepsis Ventral hernia Surgical History H/O oral surgery History of back surgery For herniation History of cholecystectomy History of cryosurgery History of gastric bypass S/P arthroscopic knee surgery S/P cholecystectomy S/P gastric surgery S/P hernia repair S/P tubal ligation Status post hysteroscopy Family History Grandfather Arthritis Coronary heart disease Dementia Hypertension Myocardial infarction Aunt Breast cancer Grandmother Breast cancer Brother Coronary heart disease Hypertension Daughter Depression Father Obesity Denies family history of Ovarian cancer Prostate cancer Colorectal cancer Social History Smoking Status: Never smoker Second Hand Exposure: No; Hx Alcohol Use: No Hx Substance Use: No Preferred Language: Belgian Communication Ability: Effective Slackman Required: No Beliefs That Will Affect Care: None marital status: Current Living Situation: Family Current Living Situation Comment: SONS LIVE WITH PT current occupational status: disabled Feels Safe at Home: Yes Dental Care, Regularly: No Physical Activity Frequency: Does not Exercise Seatbelt Use: always Sunscreen Use: Yes Assistive Devices: Walker Review of Systems All systems reviewed & are unremarkable except as noted in HPI & below. Physical Exam On physical examination of right knee, there is a trace effusion. There is a 2 cm open area in the inferior aspect of her wound. There is some purulent discharge. It is difficult to tell whether this wound tracks deep. The knee itself does not appear to be infected. She has good motion.. Constitutional WD/WN, vitals as above Eyes PERRL, conjunctivae normal, anicteric sclerae ENMT external ear and nose normal, oropharynx normal Neck trachea midline, no thyromegaly Respiratory normal respiratory effort Cardiovascular RRR, no murmur, no edema Gastrointestinal (Abdomen) normal bowel sounds, soft, nontender, no hepatosplenomegaly Psychiatric A+Ox3, euthymic affect Results & Data Results & Data Laboratory Results . Diagnostic Findings . PG Care Time/CCT Total # of Minutes Spent Total Time Spent with Patient: Total time spent is greater than 50% in coordination of care (as documented) at patient's floor/unit and/or counseling patient: Coding Level of Care Code 76096 Inpt Consult Level 4 (57 - DECISION FOR SURGERY) Diagnoses Surgical site infection T81.49XA
[2020-10-18 16:52] LABS: Appearance Synovial Fluid CLOUDY; Color Synovial Fluid AMBER; Mononuclear WBC Synovial 48.8 %; Polynuclear WBC Synovial 51.2 %; RBC Synovial Fluid (A) 23000 /uL; Source Synovial Fluid KNEE; WBC Synovial Fluid (A) 1527 /ul (0-200)
[2020-10-18] MEDS: DAPTOmycin 450 MG in SYRINGE 0 ML IV SCH (17:47)
--- NOTE | 2020-10-18 19:29 | Anesthesiology Consultation ---
Date of Service October 18, 2020 Assessment & Plan Chart Review Chart Review: Acceptable Risk for Surgery Consults Requested none History Surgery Operation Date: 10/19/20 07:00 Proposed Procedures p Right Knee Incision and Drainage Possible Poly Exchange - Gal Gentile, Height/Weight Height: 5 ft 2 in Weight: 113.4 kg Allergies Allergy/AdvReac Type Severity Reaction Status Date / Time adhesive Allergy Severe Skin Verified 10/18/20 03:40 tearing (can toleratere tega-derm) Sulfa (Sulfonamide Allergy Severe Rash Verified 10/18/20 03:40 Antibiotics) nitrofurantoin Allergy Intermediate Hives Verified 10/18/20 03:40 enalapril AdvReac Mild Cough Verified 10/18/20 03:40 cephalexin [From Keflex] AdvReac Nausea Unverified 10/18/20 03:40 pine trees Allergy Intermediate Itching, Uncoded 10/18/20 03:40 sneezing Medications Home Medications Medication Instructions Recorded Confirmed Last Taken ferrous sulfate 325 mg (65 mg 325 mg PO QAM #30 tab 11/10/18 10/18/20 09/20/20 09:00 iron) tablet venlafaxine 100 mg tablet 100 mg PO TID #90 tab 11/29/19 10/18/20 09/21/20 05:30 albuterol sulfate 90 mcg/actuation 2 puff INHALATION Q6H PRN #6.7 gm 04/13/20 10/18/20 09/14/20 aerosol inhaler montelukast 10 mg tablet 10 mg PO QPM #90 tab 08/13/20 10/18/20 09/21/20 05:30 ondansetron HCl 4 mg tablet 4 mg PO DAILY PRN #30 tab 08/20/20 10/18/20 09/18/20 acetaminophen 650 mg 650 mg PO BID PRN 09/04/20 10/18/20 09/20/20 22:30 tablet,extended release chlorpheniramine maleate 4 mg 4 mg PO Q4H PRN 09/04/20 10/18/20 09/20/20 22:30 tablet cholecalciferol (vitamin D3) 25 1,000 unit PO QAM 09/04/20 10/18/20 09/20/20 09:00 mcg (1,000 unit) tablet clobetasol 0.05 % topical cream 1 appln TOP BID PRN 09/04/20 10/18/20 Unknown cyanocobalamin (vitamin B-12) 1,000 mcg PO QAM 09/04/20 10/18/20 09/20/20 09:00 1,000 mcg capsule diphenhydramine HCl 25 mg capsule 25 mg PO TID PRN 09/04/20 10/18/20 09/21/20 05:30 (Benadryl) doxepin 25 mg capsule 25 mg PO HS 09/04/20 10/18/20 09/20/20 22:30 hydroxyzine HCl 50 mg tablet 100 mg PO BID PRN 09/04/20 10/18/20 09/20/20 22:30 ibuprofen 200 mg tablet 800 mg PO BID PRN 09/04/20 10/18/20 09/12/20 levothyroxine 137 mcg tablet 137 mcg PO QAM 09/04/20 10/18/20 09/21/20 05:30 metoprolol succinate 25 mg 25 mg PO QAM 09/04/20 10/18/20 09/21/20 05:30 tablet,extended release 24 hr mirtazapine 45 mg tablet 45 mg PO HS 09/04/20 10/18/20 09/20/20 22:30 omeprazole 10 mg capsule,delayed 10 mg PO QAM 09/04/20 10/18/20 09/21/20 05:30 release losartan 25 mg tablet 25 mg PO QAM #90 tab 09/10/20 10/18/20 09/20/20 09:00 gabapentin 300 mg capsule 900 mg PO TID #270 cap 09/11/20 10/18/20 09/21/20 05:30 sumatriptan succinate 100 mg 100 mg PO .COMPLEX 09/21/20 10/18/20 09/19/20 22:00 tablet (Imitrex) Active Medications Generic Name Dose Route Start Last Admin Trade Name Parker PRN Reason Stop Dose Admin Acetaminophen 650 mg 10/18/20 04:54 10/18/20 15:25 Acetaminophen 325 Mg Tab PO 11/17/20 04:53 650 mg Q4H PRN Administration Pain Gabapentin 900 mg 10/18/20 09:00 10/18/20 15:24 Gabapentin 300 Mg Cap PO 11/17/20 08:59 Not Given TID DAVE Ceftriaxone Sodium 2,000 mg/ 70 mls @ 100 mls/hr 10/18/20 06:00 10/18/20 06:42 Dextrose IV 10/25/20 05:59 Infused Q24H DAVE Infusion Protocol Daptomycin 450 mg/ Syringe 9 mls @ 4.5 mls/min 10/18/20 16:00 10/18/20 17:47 IV 10/25/20 15:59 4.5 mls/min Q24H DAVE Administration Protocol Potassium Chloride 40 meq/ 1,020 mls @ 125 mls/hr 10/18/20 13:00 10/18/20 13:45 Lactated Ringer's IV 10/19/20 21:38 125 mls/hr .Q8H10M DAVE Administration Levothyroxine Sodium 137 mcg 10/18/20 06:30 10/18/20 06:46 Levothyroxine Sodium 137 Mcg Tablet PO 11/17/20 06:29 137 mcg DAILYBB DAVE Administration Metoprolol Succinate 25 mg 10/18/20 09:00 10/18/20 09:48 Metoprolol Succ 25mg Ext Rel Tab PO 11/17/20 08:59 25 mg QAM DAVE Administration Pantoprazole Sodium 40 mg 10/18/20 09:00 10/18/20 09:49 Pantoprazole 40 Mg Tab PO 11/17/20 08:59 40 mg QAM DAVE Administration Venlafaxine HCl 100 mg 10/18/20 09:00 10/18/20 15:24 Venlafaxine Hcl 50 Mg Tab PO 11/17/20 08:59 Not Given TID DAVE Past Medical History Medical History Anxiety Aortic aneurysm Thoracic ascending aorta aneurysm (3.7cm/2019), under surveillance by [facility] (Dr. Suarez) > recommend recheck in 2 years Arthritis Asthma Possible - stable Depression Fibromyalgia GERD (gastroesophageal reflux disease) controlled History of suicidal ideation Remotely noted 2014 per records Hypertension Hypothyroidism Migraine Hx Morbid obesity Polysubstance overdose Remotely noted 2014 per records Sepsis Ventral hernia Past Family History Family History Grandfather Arthritis Coronary heart disease Dementia Hypertension Myocardial infarction Aunt Breast cancer Grandmother Breast cancer Brother Coronary heart disease Hypertension Daughter Depression Father Obesity Denies family history of Ovarian cancer Prostate cancer Colorectal cancer Past Surgical History Surgical History H/O oral surgery History of back surgery For herniation History of cholecystectomy History of cryosurgery History of gastric bypass S/P arthroscopic knee surgery S/P cholecystectomy S/P gastric surgery S/P hernia repair S/P tubal ligation Status post hysteroscopy Social History Smoking Status: Never smoker Hx Alcohol Use: No Alcohol type: hard liquor alcohol intake frequency: a few times a week Hx Substance Use: No Physical Exam Vital Signs Last Vital Signs Temp 36.7 C 10/18/20 18:40 Pulse 98 H 10/18/20 18:45 Resp 16 10/18/20 18:40 BP 136/84 10/18/20 18:40 Pulse Ox 91 10/18/20 18:40 Testing Laboratory Results 10/18/20 05:55 10/18/20 09:58
[2020-10-18] MEDS: DOXEPIN HCL 25 MG CAPSULE PO SCH (22:08)
[2020-10-18] MEDS: MONTELUKAST SODIUM 10 MG TABLET PO SCH (22:09)
[2020-10-18] MEDS: MIRTAZAPINE SOLTAB 15 MG PO SCH (22:09)
[2020-10-18] MEDS: HEPARIN SOD 5,000 UNIT/0.5 ML VIAL SQ SCH (22:09)
[2020-10-18 22:24] LABS: BUN Creatinine Ratio 5.6 (10-20); Creatinine Clr Calc Pharmacy 93.1 ml/min; Est GFR (African American) 90.7 ml/min; Est GFR (Non-African American) 78.2 ml/min; Potassium 2.8 mmol/L (3.5-5.1)
[2020-10-18 22:49] LABS: Appearance Urine Clear (Clear); Bacteria Urine Automated Negative (Negative); Bilirubin Urine Negative (Negative); Blood Urine Trace (Negative); Color Urine Yellow; Epithelial Cell Urine Auto >30 /lpf (0-5); Glucose Urine UA Negative (Negative); Ketones Urine 2+ (Negative); Leukocyte Esterase Urine Trace (Negative); Nitrite Urine Negative (Negative); Protein Urine 1+ (Negative); RBC Urine Automated 0-4 /hpf (0-4); Specific Gravity Urine 1.016 (1.000-1.030); Urobilinogen Urine Negative (Negative); pH Urine 5.5 (4.5-7.5)
[2020-10-18] MEDS ORDERED: POTASSIUM CHLORIDE CRTAB 20 MEQ TABCR PO STA (22:51)
[2020-10-19] MEDS: cefTRIAXone SODIUM 2,000 MG in DEXTROSE 5% 50 ML IV SCH (07:48)
[2020-10-19] MEDS: VENLAFAXINE HCL 50 MG TAB PO SCH ×3 (07:49→20:45)
[2020-10-19] MEDS: PANTOprazole 40 MG TAB PO SCH (07:50)
[2020-10-19] MEDS: GABAPENTIN 300 MG CAP PO SCH ×3 (07:50→20:48)
[2020-10-19] MEDS: METOPROLOL SUCC 25MG EXT REL TAB PO SCH (07:50)
[2020-10-19] MEDS: LEVOTHYROXINE SODIUM 137 MCG TABLET PO SCH (07:51)
[2020-10-19 07:52] LABS: Basophils # (auto) 0.04 K/uL (0-0.2); Basophils % (auto) 0.5 %; Eosinophils # (auto) 0.49 K/uL (0-0.5); Hematocrit (blood only) 28.9 % (37-47); Hemoglobin 9.2 g/dL (12.0-16.0); Immature Granulocytes # (auto) 0.06 K/uL (0.00-0.02); Immature Granulocytes % (auto) 0.7 %; Lymphocytes # (auto) 1.19 K/uL (1.2-3.4); Lymphocytes % (auto) 14.5 %; Mean Corpuscular Hemoglobin 31.8 pg (25-34); Mean Corpuscular Hgb Conc 31.8 g/dL (32-36); Mean Platelet Volume 10.2 fL (7.4-10.4); Monocytes # (auto) 0.92 K/uL (0.11-0.59); Monocytes % (auto) 11.2 %; Neutrophils # (auto) 5.48 K/uL (1.4-6.5); Neutrophils % (auto) 67.1 %; Platelet Count 462 K/uL (130-400); RDW Coefficient of Variation 20.3 % (11.5-14.5); RDW Standard Deviation 72.9 fL (36.4-46.3); Red Blood Count 2.89 M/uL (4.2-5.4); White Blood Count 8.18 K/uL (4.8-10.8)
[2020-10-19] MEDS: HEPARIN SOD 5,000 UNIT/0.5 ML VIAL SQ SCH ×2 (08:10→20:46)
[2020-10-19 08:22] LABS: Anisocytosis Present
[2020-10-19 08:28] LABS: Albumin Level 2.4 gm/dl (3.4-5.0); BUN Creatinine Ratio 6.2 (10-20); Calcium 8.9 mg/dl (8.5-10.1); Creatinine Clr Calc Pharmacy 114.1 ml/min; Est GFR (African American) 115.9 ml/min; Potassium 3.2 mmol/L (3.5-5.1)
[2020-10-19 08:50] LABS: Albumin Globulin Ratio 0.7 (0.9-2); Bilirubin,Total 0.3 mg/dl (0.2-1); Globulin 3.6 gm/dl (2.5-4.0)
[2020-10-19] MEDS ORDERED: fentaNYL citrate 100 MCG/2 ML VIAL ONE (09:04)
[2020-10-19] MEDS: POTASSIUM CHLORIDE 40 MEQ in LACTATED RINGER'S 1,000 ML IV SCH ×2 (09:39→16:36)
[2020-10-19] MEDS ORDERED: MIDAZOLAM HCL 1 MG/ML 2ML VIAL ONE (11:01)
--- NOTE | 2020-10-19 11:31 | History & Physical Bridge Note ---
Date of Service October 19, 2020 History & Physical Bridge Note I have examined the patient, reviewed the History & Physical and in the interval since the performance of the History & Physical I have noted the following changes of clinical significance: no changes noted
[2020-10-19] MEDS ORDERED: SCOPOLAMINE 1 MG TDSY TD ONE (12:29)
[2020-10-19] MEDS ORDERED: ePHEDrine sulfate 50 MG/ML AMP IV PRN (12:31)
[2020-10-19] MEDS ORDERED: fentaNYL citrate 100 MCG/2 ML VIAL IV PRN (12:31)
[2020-10-19] MEDS ORDERED: ONDANSETRON INJ 2 MG/ML 2 ML VIAL IV PRN ×2 (12:31→18:44)
[2020-10-19] MEDS ORDERED: ATROPINE SULFATE 0.1 MG/ML 10ML SYR IV PRN (12:31)
[2020-10-19] MEDS ORDERED: DEXAMETHASONE SOD INJ 4 MG/ML VIAL ONE (13:20)
[2020-10-19] MEDS ORDERED: PROPOFOL IV EMULSION 10 MG/ML 20 ML VIAL IV ONE ×5 (13:20→13:44)
[2020-10-19] MEDS ORDERED: LIDOCAINE 2% 2 ML VIAL/AMP(20MG/ML) INFIL ONE ×2 (13:20→13:31)
[2020-10-19] MEDS ORDERED: ONDANSETRON INJ 2 MG/ML 2 ML VIAL ONE (13:20)
[2020-10-19] MEDS ORDERED: ROCURONIUM BROMIDE 10 MG/ML 5 ML VIAL IV ONE (13:22)
[2020-10-19] MEDS ORDERED: SUCCINYLCHOLINE CHLORIDE 20 MG/ML 10 ML VIAL IV ONE (13:22)
--- NOTE | 2020-10-19 13:41 | Operative Report ---
PG Post Operative Report Pre & Post Diagnosis Operation Date: 10/19/20 07:00 Pre-Op Diagnosis: Surgical Site Infection Right Knee Post-Op Diagnosis: Surgical Site Infection Right Knee with infection of a superficial seroma. There was no deep prosthetic infection I identified the patient and participated in the time-out.: Yes Procedure Operation Date: 10/19/20 07:00 Actual Procedures p Right Knee Incision and Drainage Superficial Infection (Right) - Gal Gentile DO Surgeon Gal Gentile, Asbestos Removal Supervisor Gal Velasquez PAC Estimated Blood Loss 10 Findings Consistent with Post-Op Diagnosis Specimens Wound cultures Complications none Disposition Disposition: Recovery Room Indications Idania is a pleasant 50-year-old female who underwent a right knee replacement 4 weeks ago. She has been doing great with her right knee. She has been having no pain. She then began having some uncontrolled vomiting. She came to emergency room and blood work was concerning for sepsis. There was some drainage from the inferior aspect of her right knee. She was still not having any knee pain. She had good motion of her knee without any pain. I did an aspiration of the right knee joint in the emergency room and the cell count did not show any evidence of infection. Preliminary culture showed no white blood cells and no organisms from the joint fluid aspirate. I was still concerned about the draining wound from the anterior aspect of her knee. After discussions, she elected to proceed with an I&D of the right knee with exploration. Description of Procedure On October 19 Baudilio was brought down from her hospital room to the preoperative holding area. The operative extremity identified and signed. She was continued on her antibiotics. She was taken back the operating room and laid on the table in supine position. She was put under general anesthesia. The right knee was prepped and draped in sterile fashion. A timeout was done. The patient and the operative extremity was properly identified. About 50% of the inferior aspect of the incision was opened up. There was a large amount of purulent discharge from an infected seroma on the anterior medial aspect of her right knee. Cultures were taken. The entire space was irrigated with pulse lavage. I inspected the arthrotomy sites extensively and I did not see any communication with the knee joint. I then placed a spinal needle in the knee joint and aspirated some serous appearing fluid. The fluid appeared the same as the fluid I aspirated last night that was not infected. The fluid did not appear similar to the purulent discharge from the infected seroma. I then insufflated the right knee with 40 cc of saline. The knee capsule was tense but there was no leakage or communication of the intra- articular saline fluid with the superficial region. At this time I decided not to do an arthrotomy of the right knee. The stromal region was scrubbed with a Betadine scrub brush. I once again irrigated with normal saline solution with pulse lavage. A total of 6 L of normal saline solution were used. The knee was brought through a full range of motion. The incision was then closed with 2-0 Vicryl and 2-0 nylon suture. She was then placed in a soft dressing. She was then extubated and transferred to a [facility]. She was taken to the post anesthesia care unit in stable condition. She tolerated the procedure well. Gal Velasquez PA-C, was present for the entire procedure. He was critical for patient positioning, prepping, draping, retraction exposure, wound closure and application of sterile dressing. I attest to the content of the Intraoperative Record and any orders documented therein. Any exceptions are noted below.
--- NOTE | 2020-10-19 14:37 | Medical Student Progress Note ---
Date of Service October 19, 2020 Assessment & Plan (1) Sepsis: Plan: -WBC trending down from 14.6-8.18 -HCO3- increased from 8 to 12 -anion gap closing to 12 -Vital signs trending back down to WNL -continue ceftriaxone 2,000 mg IV Q24 and daptomycin 450 mg IV Q24 Present on Admission?: Yes (2) Metabolic acidosis, increased anion gap: Plan: -anion gap closing to nearly normal limits -still NPO because upcoming surgery today -likely ketoacidosis secondary to decreased dietary intake and secondary to lactic acidosis from sepsis -appears to be improving on a/bx therapy Present on Admission?: Yes (3) Intractable vomiting: Plan: -could be due to infection, medication, or other etiology -still on NPO for surgery -reasess postop Nausea presence: with nausea Vomiting type: unspecified Qualified Code(s): R11.2 - Nausea with vomiting, unspecified Present on Admission?: Yes (4) Hypertension: Plan: -on admission BP were in 140's/100's -BP's now trending WNL -continue metoprolol Present on Admission?: Yes Plan: DVTppx: heparin FEN/GI: NPO code status: full code Dispo: med/tele Admission and Anticipated Discharge Date Admission Date: October 18, 2020 Beulah Emerson is a 50 yr/oF w extensive medical hx s/p arthroscopic R knee surgery who presented to the ED with recurrent infection of her surgical site. Today, is still nauseas and dry heaving. Still has a cough. Will be undergoing I&D surgery later this AM. SOB and chest pain improving. Review of Systems Review of Systems: All systems reviewed & are unremarkable except as noted in HPI & below Results & Data ([facility]) Vital Signs (Past 12 Hours) Vital Signs Temp Pulse Pulse Pulse Resp BP Pulse Ox 10/19/20 12:14 37.1 C 91 H 18 137/91 99 10/19/20 11:48 36.8 C 90 16 149/99 H 99 10/19/20 09:57 89 10/19/20 07:48 36.6 C 85 20 138/90 99 10/19/20 04:33 36.6 C 88 18 137/88 97 Laboratory Results Laboratory Results - last 24 hr 10/18/20 10/18/20 10/18/20 16:00 21:26 22:20 WBC RBC Hgb Hct MCV MCH MCHC RDW Std Deviation RDW Coeff of Janet Plt Count MPV Immature Gran % (Auto) Neut % (Auto) Lymph % (Auto) Gates % (Auto) Eos % (Auto) Baso % (Auto) Neut # (Auto) Lymph # (Auto) Gates # (Auto) Eos # (Auto) Baso # (Auto) Immature Gran # (Auto) Anisocytosis Sodium 137 Potassium 2.8 L Chloride 113 H Carbon Dioxide 11 L Anion Gap 13.0 H BUN 5 L Creatinine 0.87 Est Cr Clr Drug Dosing 93.1 Est GFR ( Amer) 90.7 Est GFR (Non-Af Amer) 78.2 BUN/Creatinine Ratio 5.6 L Glucose 116 H Calcium 9.0 Total Bilirubin AST ALT Alkaline Phosphatase Total Protein Albumin Globulin Albumin/Globulin Ratio Urine Color Yellow Urine Appearance Clear Urine pH 5.5 Ur Specific [place] 1.016 Urine Protein 1+ H Urine Glucose (UA) Negative Urine Ketones 2+ H Urine Blood Trace H Urine Nitrite Negative Urine Bilirubin Negative Urine Urobilinogen Negative Ur Leukocyte Esterase Trace H Urine WBC (Auto) 1-5 Urine RBC (Auto) 0-4 U Hyaline Cast (Auto) 5-10 H U Epithel Cells (Auto) >30 H Urine Bacteria (Auto) Negative Fluid Comment Synovial Source KNEE Synovial Color PRAMOD Synovial Appearance CLOUDY Synovial WBC 1527 H Synovial RBC 63548 Synovial Polynuclear % 51.2 Synovial Mononuclear % 48.8 10/19/20 10/19/20 07:20 07:20 WBC 8.18 RBC 2.89 L Hgb 9.2 L Hct 28.9 L MCV 100.0 MCH 31.8 MCHC 31.8 L RDW Std Deviation 72.9 H RDW Coeff of Janet 20.3 H Plt Count 462 H MPV 10.2 Immature Gran % (Auto) 0.7 Neut % (Auto) 67.1 Lymph % (Auto) 14.5 Gates % (Auto) 11.2 Eos % (Auto) 6.0 Baso % (Auto) 0.5 Neut # (Auto) 5.48 Lymph # (Auto) 1.19 L Gates # (Auto) 0.92 H Eos # (Auto) 0.49 Baso # (Auto) 0.04 Immature Gran # (Auto) 0.06 H Anisocytosis Present Sodium 142 Potassium 3.2 L Chloride 118 H Carbon Dioxide 12 L Anion Gap 12.0 H BUN 4 L Creatinine 0.71 Est Cr Clr Drug Dosing 114.1 Est GFR ( Amer) 115.9 Est GFR (Non-Af Amer) 100.0 BUN/Creatinine Ratio 6.2 L Glucose 90 Calcium 8.9 Total Bilirubin 0.3 AST 14 L ALT 12 Alkaline Phosphatase 214 H Total Protein 6.0 L D Albumin 2.4 L Globulin 3.6 Albumin/Globulin Ratio 0.7 L Urine Color Urine Appearance Urine pH Ur Specific [place] Urine Protein Urine Glucose (UA) Urine Ketones Urine Blood Urine Nitrite Urine Bilirubin Urine Urobilinogen Ur Leukocyte Esterase Urine WBC (Auto) Urine RBC (Auto) U Hyaline Cast (Auto) U Epithel Cells (Auto) Urine Bacteria (Auto) Fluid Comment Synovial Source Synovial Color Synovial Appearance Synovial WBC Synovial RBC Synovial Polynuclear % Synovial Mononuclear %
--- NOTE | 2020-10-19 14:37 | Anesthesiology Progress Note ---
Date of Service October 19, 2020 Anesthesia Post Procedure Vital Signs Vital Signs: Temp Pulse Pulse Pulse Pulse Resp BP 10/19/20 14:30 93 H 12 133/84 10/19/20 14:20 91 H 16 132/88 10/19/20 14:10 93 H 16 158/87 H 10/19/20 14:01 97.0 F L 105 H 20 163/103 H 10/19/20 12:14 98.8 F 91 H 18 137/91 10/19/20 11:48 98.2 F 90 16 149/99 H 10/19/20 09:57 89 10/19/20 07:48 97.9 F 85 20 138/90 10/19/20 04:33 97.9 F 88 18 137/88 10/18/20 23:32 98.8 F 91 H 18 139/91 10/18/20 18:45 98 H 10/18/20 18:40 98.1 F 79 16 136/84 10/18/20 16:00 98.6 F 92 H 22 153/84 H Pulse Ox 10/19/20 14:30 94 10/19/20 14:20 100 10/19/20 14:10 100 10/19/20 14:01 97 10/19/20 12:14 99 10/19/20 11:48 99 10/19/20 09:57 10/19/20 07:48 99 10/19/20 04:33 97 10/18/20 23:32 97 10/18/20 18:45 10/18/20 18:40 91 10/18/20 16:00 97 Pain Intensity Right Knee: Pain Intensity: 8 Transfer of Care Handoff Completed per policy Notes Mental Status: alert / awake / arousable and participated in evaluation Patient Amnestic to Procedure: Yes Nausea / Vomiting: adequately controlled Pain: adequately controlled Airway Patency, RR, SpO2: stable & adequate BP & HR: stable & adequate Hydration State: stable & adequate Anesthetic Complications: no major complications apparent and Pt Satisfied with anesthetic care
[2020-10-19 15:13] LABS: Hematocrit (blood only) 30.1 % (37-47); Hemoglobin 9.5 g/dL (12.0-16.0)
[2020-10-19] MEDS: DAPTOmycin 450 MG in SYRINGE 0 ML IV SCH (15:42)
[2020-10-19] MEDS: oxyCODONE HCL IR 5 MG TAB (IMMEDIATE RELEASE) PO PRN ×2 (16:27→20:47)
--- NOTE | 2020-10-19 16:59 | Electrocardiogram Report ---
Test Reason : Blood Pressure : / mmHG Vent. Rate : 108 BPM Atrial Rate : 108 BPM P-R Int : 142 ms QRS Dur : 098 ms QT Int : 404 ms P-R-T Axes : 069 -25 079 degrees QTc Int : 541 ms Sinus tachycardia Nonspecific ST and T wave abnormality Prolonged QT Abnormal ECG When compared with ECG of 12-SEP-2020 10:21, ST now depressed in Lateral leads Nonspecific T wave abnormality now evident in Lateral leads QT has lengthened Confirmed by Krish Louis ([id number]) on 10/19/2020 4:58:40 PM Referred By: REFERRED SELF Confirmed By:Krish Louis
--- NOTE | 2020-10-19 17:26 | Electrocardiogram Report ---
Test Reason : Blood Pressure : / mmHG Vent. Rate : 092 BPM Atrial Rate : 092 BPM P-R Int : 156 ms QRS Dur : 110 ms QT Int : 374 ms P-R-T Axes : 066 -11 052 degrees QTc Int : 462 ms Normal sinus rhythm Nonspecific T wave abnormality Prolonged QT Abnormal ECG When compared with ECG of 17-OCT-2020 19:30, (unconfirmed) No significant change Confirmed by Krish Louis ([id number]) on 10/19/2020 5:26:00 PM Referred By: REFERRED SELF Confirmed By:Krish Louis
--- NOTE | 2020-10-19 17:48 | Hospitalist Progress Note ---
Date of Service October 19, 2020 Assessment & Plan (1) Sepsis: Plan: Idania Awad is a 50-year-old female with past medical of hypertension, hypothyroidism, s/p right total knee arthroplasty; who presents for concerns of intractable nausea and vomiting over the last 10 days. Sepsis: -On presentation to ED patient with tachypnea, tachycardia, and elevated WBC (3/4 SIRS); qSOFA (1/3) -Lactate on admission of 2.2 -Potentially secondary to septic joint -Patient is status post right total knee arthroplasty in August -I&D performed by Ortho this afternoon. -Sample from knee abscess sent for culture, results pending -Blood cultures came back negative for growth from 10/18 (drawn approximately 30 minutes after Ancef was given) -Continue rocephin and daptomycin. -Infectious disease consult given concern for septic joint status post total kne e arthroplasty Anion gap metabolic acidosis: -In ED patient subsequently had a pH of 7.17 on VBG, with bicarb of 10 and CO2 of 24 likely acidosis -Anion gap of 19 on admission, now at 12 -Lactate of 2.2, with beta hydroxybutyrate of 46 on admission -Demonstrating mixed picture of metabolic acidosis in the setting of poor oral intake for several days as well as sepsis -With correction of lactic acidosis and sepsis in addition to improvement in oral intake expect that anion gap will continue to resolve Hypokalemia: -Currently at 3.2 -Likely secondary to persistent nausea and vomiting -Pt put on 20 meq K BID s/p surgery -Recheck in a.m. Intractable nausea: -Persistent nausea with associated vomiting during admission -Pt able to eat meal s/p I&D today -Repeat EKG demonstrating QTC of 462 -IV benadryl prn switched to iv zofran prn for nausea. Hypertension: -Holding antihypertensives until tomorrow after evaluating potassium, recent pressures have been normotensive. Hypothyroidism: -Resume synthroid FEN/GI: lactated Ringer's with 40 mEq of KCl due to poor oral intake, protonix po CODE STATUS: Full code DVT prophylaxis: Heparin SQ Admission and Anticipated Discharge Date Admission Date: October 19, 2020 Subjective Pt seen at bedside this morning. She had no acute events overnight. Pt is pleasant. She states that she has felt mild improvement since being started on antibiotics, however, she states that prior to being placed on NPO for surgery she has been unable to keep anything down except ice water. Otherwise she feels the same as the day prior. She is going for I&D of her R knee later today. She states that she can still move her right leg freely and has completer range of motion. She denies, fevers, chills, sob, or chest pain. Pt has no other complaints at this time. Review of Systems Review of Systems: All systems reviewed & are unremarkable except as noted in HPI & below Physical Exam Constitutional: well developed, well nourished and + ill appearing; no acute distress Eyes: + anicteric sclerae Neck: trachea midline Respiratory: normal respiratory effort, lungs clear to auscultation Cardiovascular: RRR, no murmur, no edema Gastrointestinal (Abdomen): Inspection/Auscultation: abdomen normal to inspection and + hypoactive bowel sounds Percussion/Palpation: abdomen soft Skin: Surgical incision on the anterior aspect of her right knee with dehiscence of the inferior incision covered with a bandage. There is a border of erythema surrounding the inferior third of the incisional site. Psychiatric: A+Ox3, euthymic affect Results & Data Results & Data ([facility]) Vital Signs (Past 12 Hours) Vital Signs Temp Pulse Pulse Pulse Pulse Resp BP 10/19/20 14:56 36.8 C 93 H 16 138/80 10/19/20 14:40 36.2 C L 94 H 20 129/80 10/19/20 14:30 93 H 12 133/84 10/19/20 14:20 91 H 16 132/88 10/19/20 14:10 93 H 16 158/87 H 10/19/20 14:01 36.1 C L 105 H 20 163/103 H 10/19/20 12:14 37.1 C 91 H 18 137/91 10/19/20 11:48 36.8 C 90 16 149/99 H 10/19/20 09:57 89 10/19/20 07:48 36.6 C 85 20 138/90 Pulse Ox 10/19/20 14:56 98 10/19/20 14:40 98 10/19/20 14:30 94 10/19/20 14:20 100 10/19/20 14:10 100 10/19/20 14:01 97 10/19/20 12:14 99 10/19/20 11:48 99 10/19/20 09:57 10/19/20 07:48 99 Resident Activity Tracking Resident Involvement: Resident Care Provided Care Provided: Adult Hospital Medicine
[2020-10-19] MEDS: ACETAMINOPHEN 325 MG TAB PO PRN (19:04)
[2020-10-19] MEDS: POTASSIUM CHLORIDE CRTAB 20 MEQ TABCR PO SCH (20:46)
[2020-10-19] MEDS: MIRTAZAPINE SOLTAB 15 MG PO SCH (20:46)
[2020-10-19] MEDS: DOXEPIN HCL 25 MG CAPSULE PO SCH (20:47)
[2020-10-19] MEDS: MONTELUKAST SODIUM 10 MG TABLET PO SCH (21:36)
[2020-10-20] MEDS: oxyCODONE HCL IR 5 MG TAB (IMMEDIATE RELEASE) PO PRN ×4 (03:43→20:46)
[2020-10-20] MEDS: LEVOTHYROXINE SODIUM 137 MCG TABLET PO SCH (05:37)
[2020-10-20] MEDS: cefTRIAXone SODIUM 2,000 MG in DEXTROSE 5% 50 ML IV SCH (05:39)
[2020-10-20 06:29] LABS: Basophils # (auto) 0.01 K/uL (0-0.2); Basophils % (auto) 0.1 %; Eosinophils # (auto) 0.02 K/uL (0-0.5); Eosinophils % (auto) 0.3 %; Hematocrit (blood only) 29.6 % (37-47); Hemoglobin 9.4 g/dL (12.0-16.0); Immature Granulocytes # (auto) 0.05 K/uL (0.00-0.02); Immature Granulocytes % (auto) 0.7 %; Lymphocytes # (auto) 1.35 K/uL (1.2-3.4); Lymphocytes % (auto) 19.4 %; Mean Corpuscular Hemoglobin 32.4 pg (25-34); Mean Corpuscular Hgb Conc 31.8 g/dL (32-36); Mean Corpuscular Volume 102.1 fL (80-100); Mean Platelet Volume 10.6 fL (7.4-10.4); Monocytes % (auto) 11.5 %; Neutrophils # (auto) 4.72 K/uL (1.4-6.5); Nucleated RBC # (auto) 0.03 K/uL (0-0); Nucleated RBC % (auto) 0.5 %; Platelet Count 436 K/uL (130-400); RDW Coefficient of Variation 21.1 % (11.5-14.5); RDW Standard Deviation 76.5 fL (36.4-46.3); White Blood Count 6.95 K/uL (4.8-10.8)
[2020-10-20 06:53] LABS: Anisocytosis Present; Polychromasia 1+
--- NOTE | 2020-10-20 06:57 | Orthopedic Progress Note ---
Date of Service October 20, 2020 Assessment & Plan (1) Surgical site infection: Overall Idaina seems to be doing fairly well. It is important to note that this is a not a septic joint or a periprosthetic joint infection. There was a large infected seroma between the skin layer and the extensor mechanism. This was washed out during the procedure. This was a surgical site infection and not a joint infection. Joint fluid analysis from an intra-articular aspiration showed no evidence of infection and during the procedure there was no communication with the infected seroma and the joint. This is only important because it can change her antibiotic regimen. She can be weightbearing as t olerated. She is currently on Ancef and daptomycin. We are awaiting culture results. I do recommend discontinuation of the heparin and placing her on aspirin 81 mg twice a day for DVT prophylaxis. I would like to prevent a recurrence of the seroma. Subjective Idania was seen and examined at bedside this morning. Overall she is doing fairly well. The bandage was a little bit constrictive but otherwise she has no knee pain. She has no complaints.. Review of Systems All systems reviewed & are unremarkable except as noted in HPI & below. Physical Exam On physical examination of the right knee, the dressing was changed. The incision was clean and dry. Her leg is out full extension. She is able to easily do a straight leg raise. She is not having a knee pain. The erythema that was around the knee before the surgery has resolved. Results & Data Results & Data Laboratory Results Microbiology 10/18/20 03:04 Blood Aerobic Blood Culture - Preliminary No growth in Aerobic bottle after 48 hours. 10/18/20 03:04 Blood Anaerobic Blood Culture - Final 10/18/20 03:12 Blood Aerobic Blood Culture - Preliminary No growth in Aerobic bottle after 48 hours. 10/18/20 03:12 Blood Anaerobic Blood Culture - Preliminary No growth in Anaerobic bottle after 48 hours. 10/19/20 13:29 Knee,Right Gram Stain - Final 10/18/20 16:00 Knee Gram Stain - Final 10/18/20 16:00 Knee Aerobic and Anaerobic Culture - Preliminary No growth to date. . Diagnostic Findings . PG Care Time/CCT Total # of Minutes Spent Total Time Spent with Patient: Total time spent is greater than 50% in coordination of care (as documented) at patient's floor/unit and/or counseling patient: Coding Level of Care Code 14387 Post Operative Follow-Up Diagnoses Surgical site infection T81.49XA
[2020-10-20 06:59] LABS: Albumin Level 2.6 gm/dl (3.4-5.0); BUN Creatinine Ratio 10.7 (10-20); Calcium 8.6 mg/dl (8.5-10.1); Creatinine Clr Calc Pharmacy 105.9 ml/min; Est GFR (African American) 112.1 ml/min; Est GFR (Non-African American) 96.7 ml/min; Potassium 3.4 mmol/L (3.5-5.1)
[2020-10-20 07:01] LABS: Albumin Globulin Ratio 0.7 (0.9-2); Bilirubin,Total 0.3 mg/dl (0.2-1); Globulin 3.8 gm/dl (2.5-4.0); Total Protein 6.4 gm/dl (6.4-8.2)
[2020-10-20] MEDS: METOPROLOL SUCC 25MG EXT REL TAB PO SCH (09:20)
[2020-10-20] MEDS: PANTOprazole 40 MG TAB PO SCH (09:20)
[2020-10-20] MEDS: GABAPENTIN 300 MG CAP PO SCH ×3 (09:20→20:46)
[2020-10-20] MEDS: VENLAFAXINE HCL 50 MG TAB PO SCH ×3 (09:21→20:47)
[2020-10-20] MEDS: HEPARIN SOD 5,000 UNIT/0.5 ML VIAL SQ SCH (09:21)
[2020-10-20] MEDS: POTASSIUM CHLORIDE CRTAB 20 MEQ TABCR PO SCH ×2 (09:22→20:46)
--- NOTE | 2020-10-20 15:02 | Hospitalist Progress Note ---
Date of Service October 20, 2020 Assessment & Plan (1) Sepsis: Plan: Idania Awad is a 50-year-old female with past medical of hypertension, hypothyroidism, s/p right total knee arthroplasty; who presents for concerns of intractable nausea and vomiting over the last 10 days. Sepsis: -On presentation to ED patient with tachypnea, tachycardia, and elevated WBC (3/4 SIRS); qSOFA (1/3), secondary to infected R knee seroma -Patient is status post right total knee arthroplasty in August -I&D performed by Ortho 10/19/2020 -Sample from infected seroma sent for culture, preliminary results results show staphylococcal species. Sensitivities pending. -Blood cultures came back negative for growth from 10/18 (drawn approximately 30 minutes after Ancef was given) -On rocephin and daptomycin -ID consult for recommendation on duration of abx treatment. -DVT ppx switched from heparin to aspirin 81 mg BID per ortho recommendation. -Pt moved from tele to med/surg -CBC in AM Anion gap metabolic acidosis: -In ED patient subsequently had a pH of 7.17 on VBG, with bicarb of 10 and CO2 of 24 likely acidosis -sec to sepsis and ketoacidosis from poor oral intake. -Anion gap of 19 on admission, now at 7 Hypokalemia: -Currently at 3.4 -Likely secondary to persistent nausea and vomiting that has since resolved, should improve with further po intake. -Cont 20 meq K BID -Recheck in a.m. Intractable nausea: -Pt currently tolerating po intake -IV zofran prn for nausea Hypertension: -Holding antihypertensives until tomorrow after evaluating potassium, recent pressures have been normotensive. Hypothyroidism: -continue synthroid FEN/GI: protonix po CODE STATUS: Full code DVT prophylaxis: asa 81 mg BID Dispo: Med/Surg Admission and Anticipated Discharge Date Admission Date: October 19, 2020 Supervising Physician Co-Signing Physician Notes Resident Physician Supervision Note: I independently interviewed and examined the patient and verified the stiles history and physical, reviewed labs and image studies and agree with resident Dr. Henry findings and care plan. Subjective Patient was seen at bedside this morning. Patient had no acute events overnight. Patient is doing much better than she was doing yesterday. She reports that she has been able to eat full trays of food without any nausea. She sounds much more enthusiastic about her prognosis. She states currently that her pain in her right knee is currently at a 7 out of 10 with her last dose of oxycodone being used within half an hour prior to my arrival. Patient states that she is yet to experience a bowel movement. Otherwise patient denies fevers, chills, nausea or vomiting, or shortness of breath. Patient has no other complaints at this time. Review of Systems Review of Systems: All systems reviewed & are unremarkable except as noted in HPI & below Physical Exam Constitutional: well developed, well nourished and + ill appearing; no acute distress Eyes: + anicteric sclerae Neck: trachea midline Respiratory: normal respiratory effort, lungs clear to auscultation Cardiovascular: RRR, no murmur, no edema Gastrointestinal (Abdomen): Inspection/Auscultation: abdomen normal to inspection and normal bowel sounds Percussion/Palpation: abdomen soft Skin: There is a surgical incision over the anterior aspect of the right knee that is covered with bandages. There is some bloody discharge on the lower bandage, but no purulent discharge seen on examination. The surgical incision does have a small border of erythema surrounding it. Psychiatric: A+Ox3, euthymic affect Results & Data Results & Data ([facility]) Vital Signs (Past 12 Hours) Vital Signs Temp Pulse Pulse Resp BP Pulse Ox 10/20/20 11:20 36.9 C 91 H 17 132/84 94 10/20/20 09:35 86 10/20/20 07:45 37.2 C 92 H 18 147/87 H 99 10/20/20 03:34 36.8 C 83 16 127/87 98
[2020-10-20] MEDS: DAPTOmycin 450 MG in SYRINGE 0 ML IV SCH (16:14)
[2020-10-20] MEDS: MONTELUKAST SODIUM 10 MG TABLET PO SCH (20:47)
[2020-10-20] MEDS: DOXEPIN HCL 25 MG CAPSULE PO SCH (20:47)
[2020-10-20] MEDS: ASPIRIN 81 MG ECTAB PO SCH (20:47)
[2020-10-20] MEDS: MIRTAZAPINE SOLTAB 15 MG PO SCH (20:47)
[2020-10-21] MEDS: cefTRIAXone SODIUM 2,000 MG in DEXTROSE 5% 50 ML IV SCH (05:45)
[2020-10-21] MEDS: oxyCODONE HCL IR 5 MG TAB (IMMEDIATE RELEASE) PO PRN ×4 (05:45→20:09)
[2020-10-21] MEDS: LEVOTHYROXINE SODIUM 137 MCG TABLET PO SCH (05:46)
[2020-10-21 06:49] LABS: Basophils # (auto) 0.07 K/uL (0-0.2); Basophils % (auto) 0.9 %; Eosinophils # (auto) 0.29 K/uL (0-0.5); Eosinophils % (auto) 3.7 %; Hemoglobin 9.8 g/dL (12.0-16.0); Immature Granulocytes # (auto) 0.13 K/uL (0.00-0.02); Immature Granulocytes % (auto) 1.7 %; Lymphocytes # (auto) 2.45 K/uL (1.2-3.4); Lymphocytes % (auto) 31.5 %; Mean Corpuscular Hemoglobin 32.3 pg (25-34); Mean Corpuscular Hgb Conc 31.6 g/dL (32-36); Mean Corpuscular Volume 102.3 fL (80-100); Mean Platelet Volume 10.6 fL (7.4-10.4); Monocytes # (auto) 0.99 K/uL (0.11-0.59); Monocytes % (auto) 12.7 %; Neutrophils # (auto) 3.86 K/uL (1.4-6.5); Neutrophils % (auto) 49.5 %; Nucleated RBC # (auto) 0.04 K/uL (0-0); Nucleated RBC % (auto) 0.6 %; Platelet Count 340 K/uL (130-400); RDW Coefficient of Variation 21.4 % (11.5-14.5); RDW Standard Deviation 77.2 fL (36.4-46.3); Red Blood Count 3.03 M/uL (4.2-5.4); White Blood Count 7.79 K/uL (4.8-10.8)
--- NOTE | 2020-10-21 06:56 | Orthopedic Progress Note ---
Date of Service October 21, 2020 Assessment & Plan (1) Surgical site infection: Overall she is doing fairly well. Her preoperative intra-articular joint aspiration has shown no growth on the cultures. Her intraoperative infected seroma culture has grown staph species. We are still awaiting sensitivities. She is currently on ceftriaxone and daptomycin. She is on aspirin for DVT prophylaxis. The nursing staff can do daily dry dressing changes. We will await culture results for final antibiotic recommendations. Beulah Emerson was seen and examined at bedside this morning. Overall she is doing fairly well. She has been eating better. She has not had a bowel movement yet. She is having some anterior knee pain at the surgical site. She is not having any deep knee pain. She has no new complaints.. Review of Systems All systems reviewed & are unremarkable except as noted in HPI & below. Physical Exam On physical examination of the right knee, there is a little bit of serous drainage on the dressing and that will be changed. She does not have any effusion of the right knee. She has active dorsiflexion plantarflexion of the right ankle.. Results & Data Results & Data Laboratory Results . Diagnostic Findings . PG Care Time/CCT Total # of Minutes Spent Total Time Spent with Patient: Total time spent is greater than 50% in coordination of care (as documented) at patient's floor/unit and/or counseling patient: Coding Level of Care Code 96123 Post Operative Follow-Up Diagnoses Surgical site infection T81.49XA
[2020-10-21 07:12] LABS: Albumin Globulin Ratio 0.7 (0.9-2); Albumin Level 2.5 gm/dl (3.4-5.0); BUN Creatinine Ratio 11.9 (10-20); Bilirubin,Total 0.1 mg/dl (0.2-1); Calcium 8.9 mg/dl (8.5-10.1); Creatinine Clr Calc Pharmacy 97.9 ml/min; Est GFR (African American) 101.9 ml/min; Est GFR (Non-African American) 87.9 ml/min; Globulin 3.7 gm/dl (2.5-4.0); Potassium 3.5 mmol/L (3.5-5.1); Total Protein 6.2 gm/dl (6.4-8.2)
[2020-10-21] MEDS: ACETAMINOPHEN 325 MG TAB PO PRN ×2 (07:36→22:34)
[2020-10-21 08:12] LABS: Anisocytosis Present; Polychromasia 1+
[2020-10-21] MEDS: VENLAFAXINE HCL 50 MG TAB PO SCH ×3 (09:15→20:10)
[2020-10-21] MEDS: POTASSIUM CHLORIDE CRTAB 20 MEQ TABCR PO SCH ×2 (09:16→20:12)
[2020-10-21] MEDS: ASPIRIN 81 MG ECTAB PO SCH ×2 (09:16→20:10)
[2020-10-21] MEDS: GABAPENTIN 300 MG CAP PO SCH ×3 (09:16→20:10)
[2020-10-21] MEDS: PANTOprazole 40 MG TAB PO SCH (09:17)
[2020-10-21] MEDS: METOPROLOL SUCC 25MG EXT REL TAB PO SCH (09:17)
--- NOTE | 2020-10-21 15:56 | Hospitalist Progress Note ---
Date of Service October 21, 2020 Assessment & Plan (1) Surgical site infection: Plan: Idania Awad is a 50-year-old female with past medical of hypertension, hypothyroidism, s/p right total knee arthroplasty; who presents for concerns of intractable nausea and vomiting over the last 10 days. Surgical Site Infection: -On presentation to ED patient with tachypnea, tachycardia, and elevated WBC (3/4 SIRS); qSOFA (1/3), secondary to infected R knee seroma -Patient is status post right total knee arthroplasty in August -I&D performed by Ortho 10/19/2020 -Sample from infected seroma sent for culture, preliminary results results show staphylococcus aureus sensitive to oxacillin. -Blood cultures came back negative for growth from 10/18 (drawn approximately 30 minutes after Ancef was given) -Discontinued daptomycin. Continue rocephin -Anticipate d/c home on keflex for 2 wk of abx. -PT/OT ordered today. -DVT ppx aspirin 81 mg BID per ortho recommendation. -CBC in AM -No BM today. Placed order for sennakot tab. Follow. Anion gap metabolic acidosis: -In ED patient subsequently had a pH of 7.17 on VBG, with bicarb of 10 and CO2 of 24 likely acidosis -sec to sepsis and ketoacidosis from poor oral intake. -Anion gap of 19 on admission, now at 7, resolved Hypokalemia: -Currently at 3.5 -Likely secondary to persistent nausea and vomiting that has since resolved, should continue to improve with further po intake. -Cont 20 meq K BID -Recheck in a.m. Intractable nausea: resolved -Pt currently tolerating po intake -IV zofran prn for nausea Hypertension: -Continue to hold irbesartan, pressures have been normotensive, K still low normal. Hypothyroidism: -continue synthroid Admission and Anticipated Discharge Date Admission Date: October 19, 2020 Supervising Physician Co-Signing Physician Notes Resident Physician Supervision Note: I independently interviewed and examined the patient and verified the stiles history and physical, reviewed labs and image studies and agree with resident Dr. Henry findings and care plan. Subjective Patient was seen at bedside this morning. There were no acute events reported. Patient states that she is doing overall well and has some improvement as compared to yesterday. She reports a 5 out of 10 pain in her knee which is improved from yesterday. She reports that she has been able to eat most of her food, the most tolerable of which has been fruits and salads. She reports that meats have been too much for her and has caused her a little bit of nausea when she eats them, but she was able to eat some chocolate ice cream last night without any issues. She reports that she has not yet had a bowel movement. She has been able to walk to the bathroom with a walker. Otherwise she is feeling well and has no complaints at this time. Review of Systems Review of Systems: All systems reviewed & are unremarkable except as noted in HPI & below Physical Exam Constitutional: well developed and well nourished; no acute distress Eyes: + anicteric sclerae Neck: trachea midline Respiratory: normal respiratory effort, lungs clear to auscultation Cardiovascular: RRR, no murmur, no edema Gastrointestinal (Abdomen): Inspection/Auscultation: abdomen normal to inspection and normal bowel sounds Percussion/Palpation: abdomen soft Skin: There is a surgical incision over the anterior aspect of the right knee with separation at the inferior third with bloody discharge present that is covered by 3 bandages. There is a small rim of erythema surrounding the surgical incision where it was reopened. Psychiatric: A+Ox3, euthymic affect Results & Data Results & Data ([facility]) Vital Signs (Past 12 Hours) Vital Signs Temp Pulse Resp BP Pulse Ox 10/21/20 07:45 36.8 C 79 18 145/90 H 99 Resident Activity Tracking Resident Involvement: Resident Care Provided Care Provided: Adult [facility]
[2020-10-21] MEDS: MIRTAZAPINE SOLTAB 15 MG PO SCH (20:09)
[2020-10-21] MEDS: DOXEPIN HCL 25 MG CAPSULE PO SCH (20:11)
[2020-10-21] MEDS: MONTELUKAST SODIUM 10 MG TABLET PO SCH (20:11)
[2020-10-22] MEDS: oxyCODONE HCL IR 5 MG TAB (IMMEDIATE RELEASE) PO PRN ×4 (01:47→19:12)
[2020-10-22] MEDS: LEVOTHYROXINE SODIUM 137 MCG TABLET PO SCH (05:44)
[2020-10-22] MEDS: cefTRIAXone SODIUM 2,000 MG in DEXTROSE 5% 50 ML IV SCH (05:45)
[2020-10-22 06:46] LABS: Hematocrit (blood only) 30.2 % (37-47); Hemoglobin 9.2 g/dL (12.0-16.0); Mean Corpuscular Hemoglobin 31.7 pg (25-34); Mean Corpuscular Hgb Conc 30.5 g/dL (32-36); Mean Corpuscular Volume 104.1 fL (80-100); Mean Platelet Volume 10.5 fL (7.4-10.4); Nucleated RBC # (auto) 0.08 K/uL (0-0); Nucleated RBC % (auto) 1.6 %; Platelet Count 326 K/uL (130-400); RDW Coefficient of Variation 21.4 % (11.5-14.5); RDW Standard Deviation 78.3 fL (36.4-46.3); White Blood Count 4.97 K/uL (4.8-10.8)
--- NOTE | 2020-10-22 06:50 | Orthopedic Progress Note ---
Date of Service October 22, 2020 Assessment & Plan (1) Surgical site infection: Overall she is doing fairly well. She still needs to work a little bit with physical therapy. The initial joint aspirate has shown no bacterial growth. The infected seroma culture has shown MSSA. She is currently being treated with ceftriaxone. I recommend continuing aspirin 81 mg twice a day for DVT prophylaxis. She is orthopedically stable for discharge when medically ready. She can follow-up with orthopedics in 2 weeks for suture removal. Office phone number is [phone]. Beulah Emerson was seen and examined at bedside this morning. Overall she is doing fairly well. She still some soreness in the front of her knee but she says that is improving. She has not been ambulating much. She says she still feels a little dizzy when she first gets up. Otherwise, she has no complaints.. Review of Systems All systems reviewed & are unremarkable except as noted in HPI & below. Physical Exam On physical examination the right knee, the dressing has been changed. There is no erythema. She has active dorsiflexion plantarflexion of her right ankle.. Results & Data Results & Data Laboratory Results Microbiology 10/19/20 13:29 Knee,Right Gram Stain - Final 10/19/20 13:29 Knee,Right Aerobic and Anaerobic Culture - Preliminary Staphylococcus aureus 10/18/20 03:04 Blood Aerobic Blood Culture - Preliminary No growth in Aerobic bottle after 48 hours. 10/18/20 03:04 Blood Anaerobic Blood Culture - Final 10/18/20 03:12 Blood Aerobic Blood Culture - Preliminary No growth in Aerobic bottle after 48 hours. 10/18/20 03:12 Blood Anaerobic Blood Culture - Preliminary No growth in Anaerobic bottle after 48 hours. 10/18/20 16:00 Knee Gram Stain - Final 10/18/20 16:00 Knee Aerobic and Anaerobic Culture - Preliminary No growth to date. . Diagnostic Findings . PG Care Time/CCT Total # of Minutes Spent Total Time Spent with Patient: Total time spent is greater than 50% in coordination of care (as documented) at patient's floor/unit and/or counseling patient: Coding Level of Care Code 96323 Post Operative Follow-Up Diagnoses Surgical site infection T81.49XA
[2020-10-22 07:16] LABS: BUN Creatinine Ratio 14.7 (10-20); Calcium 8.5 mg/dl (8.5-10.1); Creatinine Clr Calc Pharmacy 113.7 ml/min; Est GFR (Non-African American) 102.7 ml/min; Potassium 3.3 mmol/L (3.5-5.1)
[2020-10-22] MEDS: METOPROLOL SUCC 25MG EXT REL TAB PO SCH (08:54)
[2020-10-22] MEDS: VENLAFAXINE HCL 50 MG TAB PO SCH ×3 (08:55→20:04)
[2020-10-22] MEDS: ASPIRIN 81 MG ECTAB PO SCH ×2 (08:55→20:03)
[2020-10-22] MEDS: GABAPENTIN 300 MG CAP PO SCH ×3 (08:55→20:02)
[2020-10-22] MEDS: PANTOprazole 40 MG TAB PO SCH (08:55)
[2020-10-22] MEDS: POTASSIUM CHLORIDE CRTAB 20 MEQ TABCR PO SCH ×2 (08:58→20:03)
[2020-10-22] MEDS: SENNA 8.6 MG TAB PO SCH (10:10)
[2020-10-22] MEDS: ACETAMINOPHEN 325 MG TAB PO PRN (16:33)
--- NOTE | 2020-10-22 18:11 | Hospitalist Progress Note ---
Date of Service October 22, 2020 Assessment & Plan (1) Surgical site infection: Plan: Idania Awad is a 50-year-old female with past medical of hypertension, hypothyroidism, s/p right total knee arthroplasty; who presents for concerns of intractable nausea and vomiting over the last 10 days. Surgical Site Infection: -On presentation to ED patient with tachypnea, tachycardia, and elevated WBC (3/4 SIRS); qSOFA (1/3), secondary to infected R knee seroma -Patient is status post right total knee arthroplasty in August -I&D performed by Ortho 10/19/2020 -Sample from infected seroma sent for culture, results results show staphylococcus aureus sensitive to oxacillin. -Blood cultures came back negative for growth from 10/18 (drawn approximately 30 minutes after Ancef was given) -Continue rocephin -PT/OT recommended at home discharge with either home PT/OT or outpatient services. -When discharged, ortho wants to see her in 2 weeks for suture removal. -DVT ppx aspirin 81 mg BID per ortho recommendation. -CBC in AM -No BM today. Placed order for sennakot tab. Follow. Anion gap metabolic acidosis: -In ED patient subsequently had a pH of 7.17 on VBG, with bicarb of 10 and CO2 of 24 likely acidosis -sec to sepsis and ketoacidosis from poor oral intake. -Anion gap of 19 on admission, now at 7, resolved Hypokalemia: -Currently at 3.4 -Likely secondary to persistent nausea and vomiting that has since resolved, should continue to improve with further po intake. -Switched 20 meq K BID to 40 meq BID -Recheck in a.m. Intractable nausea: -Pt currently tolerating po intake -IV zofran prn for nausea Hypertension: -Continue to hold irbesartan, pressures have been normotensive, K still low normal. Hypothyroidism: -continue synthroid Admission and Anticipated Discharge Date Admission Date: October 19, 2020 Supervising Physician Co-Signing Physician Notes I personally examined the patient and verified all stiles points of history and exam, discussed case, and agree with decision making with Dr Henry Still having some difficulty getting around. Notes however, she was making progress with home therapy, and does not want to go to rehab. Feels that she will have enough home help to be able to safely go home tomorrow. Vitals noted, in general she is awake and alert pleasant no distress. HEENT normocephalic atraumatic mucous membranes moist. Right lower extremity dressed without any surrounding tracking erythema, mild to moderate tenderness but no crepitus, no other erythema. No focal neuro deficits. Cellulitis/seromafortunately does not appear to have an actual joint infection. She noted that cephalexin made her feel very nauseatedanticipate sending home on a penicillin given that it is MSSA. Probably 2 weeks total of therapy with close outpatient follow-up. Pain/immobilitywe discussed different options, right now her preferred plan is home, anticipate this being quite realistic once she has enough helpwhich appears to be tomorrow. DVT prophylaxisaspirin twice daily. Subjective Patient seen at bedside this morning. No acute events reported overnight. Patient states that her pain is a little bit worse than yesterday. Yesterday's pain was rated a 5 out of 10, currently at a 7 out of 10 during discussion. Patient states that she is still having a difficult time with heavy foods such as proteins, but tolerates fruits and vegetables well. Patient states that she still has not had a bowel movement since being in the hospital. She reports that she is able to use her walker to go to the bathroom to urinate with assistance. Patient reports some mild dizziness when getting up to go to the bathroom, but resolves when she lays down back in bed. She is not looking forward to working with physical therapy as she feels it will just exacerbate her pain. We discussed the possibility of her going home, but when this topic is brought up she appeared to be anxious during the discussion stating that she is worried about going home for 2 reasons: Transportation for getting home and getting around safely in her own house. Patient has no other complaints at this time. Review of Systems Review of Systems: All systems reviewed & are unremarkable except as noted in HPI & below Physical Exam Constitutional: well developed, well nourished and + ill appearing; no acute distress Eyes: + anicteric sclerae Neck: trachea midline Respiratory: normal respiratory effort, lungs clear to auscultation Cardiovascular: RRR, no murmur, no edema Gastrointestinal (Abdomen): Inspection/Auscultation: abdomen normal to inspection and normal bowel sounds Percussion/Palpation: abdomen soft Skin: There is a well-healing surgical incision over the anterior aspect of her right knee with sutures present over the inferior one third with a small surrounding border of erythema and hyperthermia. There is also some localized swelling. This incision is covered with bandages without discharge present. Psychiatric: A+Ox3, euthymic affect Results & Data Results & Data ([facility]) Vital Signs (Past 12 Hours) Vital Signs Temp Pulse Resp BP Pulse Ox 10/22/20 14:54 37.1 C 96 H 18 127/83 96 10/22/20 13:35 96 10/22/20 07:28 36.5 C 86 16 123/85 94 Resident Activity Tracking Resident Involvement: Resident Care Provided Care Provided: Adult Hospital Medicine
--- NOTE | 2020-10-22 18:33 | Billing Data ---
Date of Service October 22, 2020 Coding Level of Care Code 70890 Subseq Hosp Care Lvl 2
[2020-10-22] MEDS ORDERED: MELATONIN 3 MG TAB PO PRN (18:47)
[2020-10-22] MEDS: MONTELUKAST SODIUM 10 MG TABLET PO SCH (20:03)
[2020-10-22] MEDS: DOXEPIN HCL 25 MG CAPSULE PO SCH (20:03)
[2020-10-22] MEDS: MIRTAZAPINE SOLTAB 15 MG PO SCH (20:04)
[2020-10-23] MEDS: oxyCODONE HCL IR 5 MG TAB (IMMEDIATE RELEASE) PO PRN ×3 (00:19→11:39)
[2020-10-23] MEDS: LEVOTHYROXINE SODIUM 137 MCG TABLET PO SCH (05:01)
[2020-10-23] MEDS: cefTRIAXone SODIUM 2,000 MG in DEXTROSE 5% 50 ML IV SCH (05:01)
[2020-10-23 08:25] LABS: BUN Creatinine Ratio 15.9 (10-20); Calcium 8.6 mg/dl (8.5-10.1); Creatinine Clr Calc Pharmacy 99.1 ml/min; Est GFR (African American) 103.5 ml/min; Est GFR (Non-African American) 89.3 ml/min; Potassium 3.6 mmol/L (3.5-5.1)
[2020-10-23] MEDS: METOPROLOL SUCC 25MG EXT REL TAB PO SCH (08:36)
[2020-10-23] MEDS: GABAPENTIN 300 MG CAP PO SCH ×2 (08:36→13:04)
[2020-10-23] MEDS: SENNA 8.6 MG TAB PO SCH (08:36)
[2020-10-23] MEDS: ASPIRIN 81 MG ECTAB PO SCH (08:36)
[2020-10-23] MEDS: PANTOprazole 40 MG TAB PO SCH (08:37)
[2020-10-23] MEDS: POTASSIUM CHLORIDE CRTAB 20 MEQ TABCR PO SCH (08:37)
[2020-10-23] MEDS: VENLAFAXINE HCL 50 MG TAB PO SCH ×2 (08:37→13:04)
--- NOTE | 2020-10-23 11:06 | Discharge Summary ---
Date of Service October 23, 2020 Admission HPI Per Admitting Provider Idania Awad is a 50yo female with multiple medical problems presenting with nausea, po intolerance x 8 days. Patient had a right TKA performed by Dr. Gentile on 09/21/20. The surgery was well tolerated with no immediate complications identified. She was discharged home in stable condition on 09/22/20. Patient was seen in followup on 10/03/20 and noted to have cellulitis of the right ankle and calf as well as a small amount of bloody discharge in the inferior portion of her surgical incision. She was started on Keflex 500mg po TID x 10 day course for treatment of cellulitis. Patient states she took the Keflex only for 7 days as she developed severe nausea. Nausea has persisted despite being off Keflex. She reports she is only able to tolerate small sips of water. She has had dry heaving and a small amount of diarrhea. She has been taking Zofran at home 4-5 times daily without improvement in nausea. Three days ago she developed significant XIAO - becoming short of breath with ambulating only short distances in her home. Also developed chest tightness and pain. No additional complaints at this time. ER Course: Benadryl, Zofran, NSS Admission Exam Per Admitting Provider General: patient resting comfortably in bed, NAD, mildly ill in appearance, AA&O x 4 Skin: cool, reticular mottling present on arms, legs and abdomen which patient states is her normal, surgical site at right knee with appx 2 cm area of dehiscence with purulent drainage HEENT: NC/AT, PERRL, EOMI, anicteric sclera, conjunctiva without injection, external ear normal to inspection and nontender, nares patent, dry mucus membranes, dentition intact, no oropharyngeal lesions, neck supple, trachea midline, no LAD, no thyromegaly, no JVD Heart: +S1/S2, regular, tachycardic, no m/r/g Lungs: equal air entry bilaterally, no rales/rhonchi/wheezes Abd: +BS, soft, NT/ND, no masses/organomegaly/ascites Ext: warm, 2+ pulses in UE/LE bilaterally, no clubbing/cyanosis or edema, right knee slightly warm to touch with bruising, area of dehiscence as above Neuro: nonfocal, patient AA&O x 4, speech intact, no facial droop, moving all extremities on command with equal strength 5/5 Principal Diagnosis Infected Seroma Discharge Exam Constitutional well developed, well nourished and + ill appearing; no acute distress Eyes + anicteric sclerae Neck trachea midline Respiratory normal respiratory effort, lungs clear to auscultation Cardiovascular RRR, no murmur, no edema Gastrointestinal (Abdomen) Inspection/Auscultation: abdomen normal to inspection and normal bowel sounds Percussion/Palpation: abdomen soft Skin There is a surgical incision on the right anterior aspect of the right knee. The lower one third is closed with sutures and covered with a bandage. There is no bloody or purulent discharge. Is mildly warm to the touch. There is a small border of erythema to the lower third of the incision. Psychiatric A+Ox3, euthymic affect Discharge Data Allergies Allergy/AdvReac Type Severity Reaction Status Date / Time adhesive Allergy Severe Skin Verified 10/18/20 03:40 tearing (can toleratere tega-derm) Sulfa (Sulfonamide Allergy Severe Rash Verified 10/18/20 03:40 Antibiotics) nitrofurantoin Allergy Intermediate Hives Verified 10/18/20 03:40 enalapril AdvReac Mild Cough Verified 10/18/20 03:40 cephalexin [From Keflex] AdvReac Nausea Unverified 10/18/20 03:40 Procedures Performed Operation Date: 10/19/20 07:00 Actual Procedures p Right Knee Incision and Drainage Superficial Infection (Right) - Gal Gentile DO Ordered Studies 10/17/20 22:50 CT angio chest PE protocol Urgent Hospital Course (1) Surgical site infection: Idania Awad is a 50-year-old female with past medical of hypertension, hypothyroidism, s/p right total knee arthroplasty; who presents for concerns of intractable nausea and vomiting over the last 10 days. Surgical Site Infection: -On presentation to ED patient with tachypnea, tachycardia, and elevated WBC (3/4 SIRS); qSOFA (1/3), secondary to infected R knee seroma -Patient is status post right total knee arthroplasty in August -I&D performed by Ortho 10/19/2020 -Sample from infected seroma sent for culture, results results show staphylococcus aureus sensitive to oxacillin. -Blood cultures came back negative for growth from 10/18 (drawn approximately 30 minutes after Ancef was given) -Patient was started on amoxicillin 500 mg 3 times daily for 10 additional days. -PT/OT recommended at home discharge with either home PT/OT or outpatient services. Patient refused home services. -When discharged, ortho wants to see her in 2 weeks for suture removal. Follow- up with PCP within 1 week. -Patient sent home with 3 days worth of oxycodone 5 mg as needed every 4 hours. Anion gap metabolic acidosis: -In ED patient subsequently had a pH of 7.17 on VBG, with bicarb of 10 and CO2 of 24 likely acidosis -sec to sepsis and ketoacidosis from poor oral intake. -Anion gap of 19 on admission, now at 7, resolved Hypokalemia: -Currently at 3.6 -Likely secondary to persistent nausea and vomiting that has since resolved, should continue to improve with further po intake. -Switched 40 mEq potassium twice daily to 20 mEq potassium twice daily on discharge. -Restarted ARB. -Suggested to have a BMP done when seen by PCP. Intractable nausea: -Pt currently tolerating po intake Hypertension: -Continue ARB. Pressures have been good in the hospital. Hypothyroidism: -continue synthroid Total Time Total Time Spent Total Time Spent (In Minutes): <30 Discharge Plan Discharge Items Patient Disposition: Home - Self-Care Reason For Visit: SOB, NAUSEA Discharge Diagnosis: Infected Seroma S/p R Knee Replacement Activity: Per Instructions section Lifting: Wait until after follow-up appointment Exercise/Sports: Wait until after follow-up appointment Non-emergency contact: Primary Care Provider and Surgeon Call non-emergency contact if: you have any medication questions, your symptoms worsen and your temperature is above 101 Follow-up/Referrals: Werner Chapin MD [Primary Care Provider] - 10/30/20 10:15 am Gal Gentile DO [Physician] - 10/31/20 2:10 pm Diet: Regular Addtl Attending Provider Instructions: You were seen in the hospital for an infected seroma on the right knee after having a right knee replacement. While you were here this infectious seroma was incised and drained and cultured. We treated you with antibiotics throughout your hospital stay. You were seen by physical therapy and Occupational Therapy who deemed you were safe to return home. Also while you were here your potassium was low for which we are repleting with potassium supplementation. We are sending you home with a prescription for potassium supplementation as well. We recommend that your primary care provider performs a BMP to monitor your potassium when you follow-up with them. You are to follow-up with your primary care provider within 1 week in to see Dr. Gentile's office in 2 weeks for suture removal. We are sending you home with an oral antibiotic to treat the remaining cellulitis that had developed due to the seroma. It was a pleasure to participate in your care and we wish you the best in your recovery. Pending Studies at Discharge: No Stand-Alone Forms: [facility], Opioid Pain Management, Smoking Ce ssation Medications and DC Order Prescriptions: New potassium chloride [Klor-Con M20] 20 mEq Tablet,Er Particles/Crystals 20 meq PO BID Qty: 60 RF: 1 amoxicillin 500 mg capsule 500 mg PO TID 10 Days Qty: 30 RF: 0 ondansetron HCl [Zofran] 4 mg tablet 4 mg PO Q4H PRN (Reason: Nausea) 3 Days Qty: 10 RF: 0 oxycodone 5 mg tablet 5 mg PO Q4H PRN (Reason: pain) Qty: 10 RF: 0 Continued venlafaxine 100 mg tablet 100 mg PO TID Qty: 90 RF: 5 albuterol sulfate 90 mcg/actuation HFA aerosol inhaler 2 puff inhalation Q6H PRN (Reason: shortness of breath or wheezing) Qty: 6.7 RF: 5 montelukast 10 mg tablet 10 mg PO QPM Qty: 90 RF: 3 ondansetron HCl 4 mg tablet 4 mg PO DAILY PRN (Reason: nausea and vomiting) Qty: 30 RF: 1 losartan 25 mg tablet 25 mg PO QAM Qty: 90 RF: 1 gabapentin 300 mg capsule 900 mg PO TID Qty: 270 RF: 5 ferrous sulfate 325 mg (65 mg iron) tablet 325 mg PO QAM Qty: 30 RF: 0 doxepin 25 mg capsule 25 mg PO HS RF: 0 clobetasol 0.05 % cream 1 appln TOP BID PRN (Reason: Dry Skin) RF: 0 cholecalciferol (vitamin D3) 25 mcg (1,000 unit) tablet 1,000 unit PO QAM RF: 0 cyanocobalamin (vitamin B-12) 1,000 mcg capsule 1,000 mcg PO QAM RF: 0 levothyroxine 137 mcg tablet 137 mcg PO QAM RF: 0 hydroxyzine HCl 50 mg tablet 100 mg PO BID PRN (Reason: itching) RF: 0 omeprazole 10 mg capsule,delayed release(DR/EC) 10 mg PO QAM RF: 0 mirtazapine 45 mg tablet 45 mg PO HS RF: 0 metoprolol succinate 25 mg tablet extended release 24 hr 25 mg PO QAM RF: 0 chlorpheniramine maleate 4 mg Tablet 4 mg PO Q4H PRN (Reason: Allergy Symptoms) RF: 0 diphenhydramine HCl [Benadryl] 25 mg Capsule 25 mg PO TID PRN (Reason: Allergy Symptoms) RF: 0 acetaminophen 650 mg Tablet Extended Release 650 mg PO BID PRN (Reason: Pain) RF: 0 ibuprofen 200 mg Tablet 800 mg PO BID PRN (Reason: Pain) RF: 0 sumatriptan succinate [Imitrex] 100 mg tablet 100 mg PO .COMPLEX RF: 0 Discharge Orders: Discharge Order (Routine); Ordered 10/23/20 Ordered By: Nathaniel Benton/Other Patient Handouts: Medicine for Pain, ED Hypokalemia Admission Data Admit Date/Time: 10/19/20 16:17 Attending Provider: Matthew Haynes Admit Provider: Dejah Osullivan Primary Care Provider: Werner Chapin V. Other Providers: Mary Kenney Other Interventions: Discharge Summary Assessment (RN) Last Done: 10/23/20 11:06 Supervising Physician Co-Signing Physician Notes I personally examined the patient and verified all stiles points of history and exam, discussed case, and agree with decision making with Dr Henry Feels about the same, but with more support, feels up to going home. Discussed antibiotics and follow-up. Vitals noted, in general she is awake and alert pleasant no distress. HEENT normocephalic atraumatic mucous membranes moist. Right lower extremity dressed without any surrounding tracking erythema, mild to moderate tenderness but no crepitus, no other erythema. No focal neuro deficits. Cellulitis/seromafortunately does not appear to have an actual joint infection. She noted that cephalexin made her feel very nauseatedwill send home on amoxicillin given that it is MSSA. Probably 2 weeks total of therapy with close outpatient follow-up to determine how she is responding, and shorten versus lengthen the course as clinically warranted. Pain/immobilitywe discussed different options, her preferred plan is home, and she feels safe to go home today. Ongoing outpatient PT. DVT prophylaxisaspirin twice daily. Resident Activity Tracking Resident Involvement: Resident Care Provided Care Provided: Adult Hospital Medicine
--- NOTE | 2020-10-23 18:56 | Billing Data ---
Date of Service October 23, 2020 Coding Level of Care Code D/C DAY MANAGEMENT <30 MINS
== END 2020-10-23 16:59 | disposition home or self-care (01) | DRG 919 ==
LOC: EDINP 18:53 → ED 18:53 → SUATTDRO 10-18 02:11 → 2S 10-18 03:30 → SUATTDRO 10-19 16:17 → 3N 10-20 14:57
DX: E87.6 Hypokalemia; L02.91 Cutaneous abscess, unspecified; E86.0 Dehydration; Z79.82 Long term (current) use of aspirin; E03.9 Hypothyroidism, unspecified; R94.31 Abnormal electrocardiogram [ECG] [EKG]; M96.89 Other intraoperative and postprocedural complications and disorders of the musculoskeletal system; F41.9 Anxiety disorder, unspecified; E87.2 Acidosis; E66.01 Morbid (severe) obesity due to excess calories; Z68.41 Body mass index [BMI] 40.0-44.9, adult; I10 Essential (primary) hypertension; A41.9 Sepsis, unspecified organism

== ENCOUNTER 2023-07-27 12:48 | Inpatient (IN) ==
--- NOTE | 2023-07-27 12:56 | ED Triage Note ---
Date of Service July 27, 2023 Provider in Triage Author: Horacio Robbins History of Present Illness This patient was briefly evaluated while in triage. An abbreviated physical exam was performed. This patient is a 53-year-old Female who presents to the ED for evaluation of nausea, abd pain, back pain, vomiting. Notes cannot tolerate food or drink. Physical Exam GENERAL: 53 year old female. In no acute distress. Tired appearing. SKIN: No lesions or rashes. HEART: Regular rate and rhythm. LUNGS: Clear to auscultation. ABDOMEN: Bowel sounds normoactive. No guarding or rigidity. Generalized TTP noted. NEURO: Alert and oriented. No deficits. MUSCULOSKELETAL: No deformities to inspection of the extremities. PSYCH: Patient is pleasant and answers all questions appropriately. Initial orders for labs and / or imaging were placed and patient was placed directly into a room for further assessment.
--- NOTE | 2023-07-27 13:16 | Emergency Department Note ---
History of Present Illness General Chief complaint: Vomiting Stated complaint: BODY PAIN, UNCONTROLABLE VOMITING, HEADACHE Time Seen by Provider: 07/27/23 13:07 History of Present Illness Maximum Pain Intensity: 10 This is a 53-year-old female that presents to the emergency department via private vehicle with complaints of "body pain, vomiting, headache". The patient notes that 4 days ago she began with vomiting. She states that the vomiting has continued. She then developed abdominal pain and then a headache. She denies any abdominal pain or headache preceding the vomiting. She denies any fever but is not entirely sure as she has not checked her temperature. She notes that she cannot eat or drink in over the past 4 days continues to feel unwell. She also feels short of breath. Current pain 12/02. No blood in the vomit. Home Medications Medication Instructions Recorded Confirmed Type ferrous sulfate 325 mg (65 mg 325 mg PO QAM #30 tabs 11/10/18 07/27/23 History iron) tablet venlafaxine 100 mg tablet 100 mg PO TID #90 tabs 11/29/19 07/27/23 Rx acetaminophen 650 mg 650 mg PO BID PRN Pain 09/04/20 07/27/23 History tablet,extended release cyanocobalamin (vitamin B-12) 1,000 mcg PO QAM 09/04/20 07/27/23 History 1,000 mcg capsule diphenhydramine HCl 25 mg capsule 25 mg PO TID PRN Allergy Symptoms 09/04/20 07/27/23 History (Benadryl) hydroxyzine HCl 50 mg tablet 50 mg PO BID PRN itching 09/04/20 07/27/23 History ibuprofen 200 mg tablet 800 mg PO BID PRN Pain 09/04/20 07/27/23 History hydroxyzine HCl 50 mg tablet 100 mg PO HS PRN Itching 11/17/21 07/27/23 History albuterol sulfate 90 mcg/actuation 2 puff inhalation Q6H PRN 07/01/22 07/27/23 Rx aerosol inhaler shortness of breath or wheezing #6.7 grams cholecalciferol (vitamin D3) 25 1,000 unit PO QPM 07/15/22 07/27/23 History mcg (1,000 unit) tablet gabapentin 300 mg capsule 900 mg (3 x 300 mg) PO TID anxiety 12/09/22 07/27/23 Rx #270 caps omeprazole 10 mg capsule,delayed 10 mg PO QAM #90 caps 12/25/22 07/27/23 Rx release sumatriptan succinate 100 mg 100 mg PO .COMPLEX 90 days #27 tabs 03/29/23 07/27/23 Rx tablet (Imitrex) atorvastatin 10 mg tablet 10 mg PO QPM #90 tabs 06/01/23 07/27/23 Rx losartan 25 mg tablet 25 mg PO QAM #90 tabs 06/01/23 07/27/23 Rx metoprolol succinate 25 mg 25 mg PO QAM #90 tabs 06/01/23 07/27/23 Rx tablet,extended release 24 hr montelukast 10 mg tablet 10 mg PO QAM #90 tabs 06/01/23 07/27/23 Rx methocarbamol 500 mg tablet 500 mg PO Q12 PRN LBP #60 tabs 07/01/23 07/27/23 Rx ondansetron HCl 4 mg tablet 4 mg PO DAILY PRN nausea and 07/01/23 07/27/23 Rx vomiting #30 tabs hydrocodone 7.5 mg-acetaminophen 1 tab PO .5 times daily 07/09/23 07/27/23 History 325 mg tablet levothyroxine 137 mcg tablet 137 mcg PO QAM #30 tabs 07/22/23 07/27/23 Rx doxepin 75 mg capsule 75 mg PO HS 07/27/23 07/27/23 History mirtazapine 15 mg tablet 15 mg PO HS 07/27/23 07/27/23 History Allergies Allergy/AdvReac Type Severity Reaction Status Date / Time adhesive Allergy Severe Skin Verified 07/09/23 07:04 tearing (can toleratere tega-derm) Sulfa (Sulfonamide Allergy Severe Rash Verified 07/09/23 07:04 Antibiotics) nitrofurantoin Allergy Intermediate Hives Verified 07/09/23 07:04 enalapril AdvReac Mild Cough Verified 07/09/23 07:04 cephalexin [From Keflex] AdvReac Nausea Verified 07/09/23 07:04 Past Med/Surg History Problem List (Updated 07/27/23 @ 19:41 by Horacio Robbins PA-C) Acute generalized abdominal pain (Acute) Lactic acid increased (Acute) Emesis (Acute) Sepsis (Acute) High anion gap metabolic acidosis Coronary artery calcification Ascending aorta dilatation Numbness and tingling of both feet History of pulmonary embolism Rotator cuff tear, right Allergies Recurrent sinus infections Abnormal CT scan, chest Right shoulder pain Anxiety disorder (Acute) Chronic pain (Acute) Depression (Acute) Fibromyalgia (Acute) Hypertension (Acute) Hypothyroidism (Acute) Insomnia (Acute) Low back pain (Acute) Migraine headache (Acute) Status post intestinal bypass (Acute) Tachycardia (Acute) Ventral hernia (Acute) Vitamin B12 deficiency (Acute) Vitamin D deficiency disease (Acute) Aortic aneurysm (Chronic) Migraines (Chronic) Medical History History of anesthesia reaction during colonoscopy in July 2022, was still partially awake, and felt everything happening History of degenerative disc disease History of anesthesia reaction "anxiety when I wake up" PONV (postoperative nausea and vomiting) Morbid obesity Fibromyalgia Arthritis GERD (gastroesophageal reflux disease) controlled Hypothyroidism Depression Anxiety Migraine Hx Asthma Possible - stable Aortic aneurysm CT 2020 [place] 3.9cm Thoracic ascending aorta aneurysm (3.7cm/2019), under surveillance by [facility] (Dr. Suarez) > recommend recheck in 2 years Hypertension Ventral hernia Polysubstance overdose Remotely noted 2014 per records History of suicidal ideation Remotely noted 2014 per records Surgical History History of arthroscopy of right knee History of hand surgery Right finger surgery Status post right knee replacement (~08/2020) S/P tubal ligation H/O oral surgery Status post hysteroscopy S/P hernia repair multiple S/P gastric surgery S/P cholecystectomy History of cryosurgery History of gastric bypass History of cholecystectomy History of back surgery For herniation Family History Grandfather Arthritis Coronary heart disease Dementia Hypertension Myocardial infarction Aunt Breast cancer Grandmother Breast cancer Brother Coronary heart disease Hypertension Daughter Depression Father Obesity Denies family history of Ovarian cancer Prostate cancer Colorectal cancer Social History Smoking Status: Never smoker Second Hand Exposure: No; Do You Dip or Chew Tobacco: No; Hx Alcohol Use: No Hx Substance Use: No Preferred Language: Montenegrin Communication Ability: Effective Clarification Operator Required: No Beliefs That Will Affect Care: None marital status: Current Living Situation: Spouse Current Living Situation Comment: SONS LIVE WITH PT current occupational status: disabled Feels Safe at Home: Yes Dental Care, Regularly: No Physical Activity Frequency: Does not Exercise Seatbelt Use: always Sunscreen Use: Yes Assistive Devices: Glasses Review of Systems A total of 10 systems reviewed and were otherwise negative Physical Exam Vital Signs Vital Signs - 24 hr 07/27/23 12:53 07/27/23 12:57 07/27/23 13:10 Temperature 35.5 C L Temperature Source Temporal Artery Scan Pulse Rate 128 H 117 H Pulse Rate [Apical] Pulse Rate from SpO2 Sensor Pulse Rhythm [Apical] Respiratory Rate 24 Respiratory Effort / Characteristics Labored Respiratory Depth Normal Blood Pressure 119/96 Blood Pressure [Left Arm] Blood Pressure Mean 103 Blood Pressure Mean [Left Arm] Blood Pressure Position Sitting Pulse Oximetry 97 97 Oxygen Delivery Method Room Air Room Air Sepsis Recent Fever Within 48 Hours No Sepsis New/Unexplained Change in Mental Status No Sepsis Action Taken by Nursing Adv Provider Notified 07/27/23 13:12 07/27/23 13:21 07/27/23 13:21 Temperature 36.9 C Temperature Source Oral Pulse Rate 129 H 124 H Pulse Rate [Apical] Pulse Rate from SpO2 Sensor 122 H Pulse Rhythm [Apical] Respiratory Rate 19 27 H Respiratory Effort / Characteristics Respiratory Depth Blood Pressure Blood Pressure [Left Arm] Blood Pressure Mean Blood Pressure Mean [Left Arm] Blood Pressure Position Pulse Oximetry 96 Oxygen Delivery Method Sepsis Recent Fever Within 48 Hours Sepsis New/Unexplained Change in Mental Status Sepsis Action Taken by Nursing 07/27/23 13:31 07/27/23 13:39 07/27/23 14:03 Temperature Temperature Source Pulse Rate 109 H 105 H Pulse Rate [Apical] Pulse Rate from SpO2 Sensor 115 H Pulse Rhythm [Apical] Respiratory Rate 20 14 Respiratory Effort / Characteristics Respiratory Depth Blood Pressure 146/103 H Blood Pressure [Left Arm] Blood Pressure Mean 121 Blood Pressure Mean [Left Arm] Blood Pressure Position Pulse Oximetry 94 Oxygen Delivery Method Sepsis Recent Fever Within 48 Hours Sepsis New/Unexplained Change in Mental Status Sepsis Action Taken by Nursing 07/27/23 15:33 Temperature 37.2 C Temperature Source Oral Pulse Rate Pulse Rate [Apical] 109 H Pulse Rate from SpO2 Sensor Pulse Rhythm [Apical] Regular Respiratory Rate 24 Respiratory Effort / Characteristics Respiratory Depth Shallow Blood Pressure Blood Pressure [Left Arm] 127/70 Blood Pressure Mean Blood Pressure Mean [Left Arm] 89 Blood Pressure Position Pulse Oximetry 98 Oxygen Delivery Method Room Air Sepsis Recent Fever Within 48 Hours Sepsis New/Unexplained Change in Mental Status Sepsis Action Taken by Nursing VITAL SIGNS - Vital signs and nursing notes were reviewed. Tachycardic, afebrile. GENERAL -53-year-old female appearing her stated age who is in no acute distress but appears tired. Communicates well with provider and answers questions appropriately. SKIN - Without rashes. No meningeal or petechial rash. HEAD - NC/AT. EYES - PERRL with EOMI bilaterally. Sclera anicteric. Palpebral conjunctiva pink and moist with no injection noted. EARS - No deformities of external structures noted on gross examination bilaterally. External auditory canals without discharge or otorrhea. Tympanic membranes pearly dominique without retraction or bulging. No fluid or purulent material visualized behind the TM. Handle of malleus, umbo, cone of light, pars tensa/flaccid all easily visualized. NOSE - Midline and without cyanosis. No epistaxis or purulent drainage noted. Septum midline without deviation or septal hematoma noted. MOUTH/OROPHARYNX - Without perioral cyanosis. Buccal mucosa pink and moist and without leukoplakia. Tongue midline with equal elevation of palate bilaterally. No tonsillar hypertrophy, erythema, or exudates noted. Fair dentition noted. NECK - Neck with FROM. Supple to palpation. No lymphadenopathy noted. No nuchal rigidity. LUNGS - Chest wall symmetric without accessory muscle use, intercostals retractions, or central cyanosis. Normal vesicular breath sounds CTA B/L. No wheezes, rales, or rhonchi appreciated. CARDIAC - RRR with S1/S2. No murmur, rubs, or gallops appreciated. ABDOMEN - Abdominal contour normal without pulsations or visible masses. BS normoactive all four quadrants. Generalized abdominal tenderness noted without guarding or rigidity. EXTREMITIES - No clubbing or peripheral cyanosis. +5/5 strength noted in UE/LE bilaterally. NEUROLOGIC - Cranial nerves grossly intact. PSYCH -alert, oriented and pleasant on exam. Course Administered Medications Discontinued Medications Dextrose (Dextrose 50% 50 Ml Syringe) 25 ml IV NOW ONE Stop: 07/27/23 17:44 Last Admin: 07/27/23 18:04 Dose: 25 ml Documented By: LORENA Sodium Chloride (Nss) 1,000 mls @ 999 mls/hr IV .Q1H1M DAVE Stop: 07/27/23 14:15 Last Infusion: 07/27/23 15:22 Dose: Infused Documented By: Admin: 07/27/23 13:25 Dose: 999 mls/hr Documented By: LOUIS Piperacillin Sod/Tazobactam Sod (Zosyn) 4.5 gm in 100 mls @ 200 mls/hr IV NOW ONE Stop: 07/27/23 14:33 Last Infusion: 07/27/23 15:22 Dose: Infused Documented By: Admin: 07/27/23 14:28 Dose: 200 mls/hr Documented By: LOUIS Sodium Chloride (Nss) 500 mls @ 999 mls/hr IV .Q31M ONE Stop: 07/27/23 15:13 Last Admin: 07/27/23 15:22 Dose: 999 mls/hr Documented By: LORENA Lactated Ringer's (Lr) 1,000 mls @ 999 mls/hr IV .Q1H1M ONE Stop: 07/27/23 17:20 Last Infusion: 07/27/23 18:47 Dose: Infused Documented By: Admin: 07/27/23 17:19 Dose: 999 mls/hr Documented By: LORENA Pantoprazole Sodium 40 mg/ (Syringe) 10 mls @ 5 mls/min IV NOW STA Stop: 07/27/23 16:30 Last Admin: 07/27/23 17:20 Dose: 5 mls/min Documented By: LORENA Acetaminophen (Ofirmev) 1,000 mg in 100 mls @ 400 mls/hr IV NOW STA Stop: 07/27/23 16:45 Last Infusion: 07/27/23 18:46 Dose: Infused Documented By: Admin: 07/27/23 17:20 Dose: 400 mls/hr Documented By: LORENA Ioversol (Optiray 320 125ml) 120 ml IV ONCE ONE Stop: 07/27/23 15:07 Last Admin: 07/27/23 15:06 Dose: 120 ml Documented By: KAMERON Morphine Sulfate (Morphine Sulfate 4 Mg/Ml 1 Ml Carp\\Vial) 4 mg IV NOW STA Stop: 07/27/23 17:06 Last Admin: 07/27/23 17:20 Dose: 4 mg Documented By: LORENA Ondansetron HCl (Ondansetron Inj 2 Mg/Ml 2 Ml Vial) 4 mg IV NOW STA Stop: 07/27/23 13:14 Last Admin: 07/27/23 13:26 Dose: 4 mg Documented By: HS Medical Decision Making Laboratory Data 07/27/23 13:04 07/27/23 13:04 Lab Results 07/27/23 07/27/23 07/27/23 Range/Units 13:04 13:11 13:28 WBC 12.67 H (4.8-10.8) K/ul RBC 4.70 (4.20-5.40) M/uL Hgb 16.7 H (12.0-16.0) g/dl Hct 51.3 H (37.0-47.0) % MCV 109.1 H (80.0-100.0) fL MCH 35.5 H (25.0-34.0) pg MCHC 32.6 (32.0-36.0) g/dL RDW Std Deviation 53.6 H (36.4-46.3) fL RDW Coeff of Janet 13.2 (11.5-14.5) % Plt Count 497 H (130-400) K/uL MPV 10.0 (9.4-12.4) fL Immature Gran % (Auto) 0.4 % Neut % (Auto) 75.6 % Lymph % (Auto) 17.7 % [place] % (Auto) 5.6 % Eos % (Auto) 0.1 % Baso % (Auto) 0.6 % Neut # (Auto) 9.59 H (1.40-6.50) K/uL Lymph # (Auto) 2.24 (1.20-3.40) K/uL [place] # (Auto) 0.71 H (0.11-0.59) K/uL Eos # (Auto) 0.01 (0.00-0.50) K/uL Baso # (Auto) 0.07 (0.00-0.20) K/uL Immature Gran # (Auto) 0.05 (0.01-0.20) K/uL PT 11.5 (9.0-12.0) Seconds INR 1.1 (0.9-1.1) APTT 28 (21-31) Seconds PTT Ratio 1.0 Sodium 135 L (136-145) mmol/L Potassium 4.2 (3.5-5.1) mmol/L Chloride 103 (98-107) mmol/L Carbon Dioxide 11 L (21-32) mmol/L Anion Gap 21 H (3-11) BUN 12 (6-23) mg/dl Creatinine 1.31 H (0.6-1.2) mg/dl Est Cr Clr Drug Dosing Not Reportable Est GFR ( Amer) 54.1 ml/min Est GFR (Non-Af Amer) 46.7 ml/min BUN/Creatinine Ratio 9.2 L (10-20) Glucose 104 H (70-99(Fasting)) mg/dl Lactate 2.2 H* (0.4-2.0) mmol/L Calcium 9.8 (8.6-10.3) mg/dl Magnesium 2.1 (1.7-2.4) mg/dl Total Bilirubin 0.6 (0.2-1.0) mg/dl AST 23 (13-39) U/L ALT 26 (7-52) U/L Alkaline Phosphatase 193 H (34-104) U/L Troponin I High Sens 18.6 H (0-14) pg/ml Total Protein 8.2 (6.0-8.3) gm/dl Albumin 4.9 (3.4-5.0) gm/dl Globulin 3.3 (2.5-4.0) gm/dl Albumin/Globulin Ratio 1.5 (0.9-2) Lipase 69 (11-82) U/L Procalcitonin 15.00 H (0-0.5) ng/ml TSH 4.466 (0.300-4.500) uIu/ml Urine Color Urine Appearance (Clear) Urine pH (4.5-7.5) Ur Specific [place] (1.000-1.030) Urine Protein (Negative) Urine Glucose (UA) (Negative) Urine Ketones (Negative) Urine Blood (Negative) Urine Nitrite (Negative) Urine Bilirubin (Negative) Urine Urobilinogen (Negative) Ur Leukocyte Esterase (Negative) Urine WBC (Auto) (0-5) /hpf Urine RBC (Auto) (0-2) /hpf U Hyaline Cast (Auto) (0-2) /lpf U Epithel Cells (Auto) (0-2) /hpf Urine Bacteria (Auto) (None Seen) Adenovirus (PCR) Not Detected (NotDetected) B. pertussis DNA (PCR) Not Detected (NotDetected) B.parapertussis DNA PCR Not Detected (NotDetected) C. pneumoniae DNA (PCR) Not Detected (NotDetected) Coronavirus OC43 (PCR) Not Detected (NotDetected) Coronavirus HKU1 (PCR) Not Detected (NotDetected) Coronavirus 229E (PCR) Not Detected (NotDetected) SARS-CoV-2 (PCR) Not Detected (NotDetected) Coronavirus NL63 (PCR) Not Detected (NotDetected) Human Metapneumovir PCR Not Detected (NotDetected) Influenza Type A (PCR) Not Detected (NotDetected) Influenza Type B (PCR) Not Detected (NotDetected) M. pneumoniae (PCR) Not Detected (NotDetected) Parainfluenza 1 (PCR) Not Detected (NotDetected) Parainfluenza 2 (PCR) Not Detected (NotDetected) Parainfluenza 3 (PCR) Not Detected (NotDetected) Parainfluenza 4 (PCR) Not Detected (NotDetected) RSV (PCR) Not Detected (NotDetected) Entero/Rhino (PCR) Not Detected (NotDetected) 07/27/23 07/27/23 Range/Units 14:00 15:48 WBC (4.8-10.8) K/ul RBC (4.20-5.40) M/uL Hgb (12.0-16.0) g/dl Hct (37.0-47.0) % MCV (80.0-100.0) fL MCH (25.0-34.0) pg MCHC (32.0-36.0) g/dL RDW Std Deviation (36.4-46.3) fL RDW Coeff of Janet (11.5-14.5) % Plt Count (130-400) K/uL MPV (9.4-12.4) fL Immature Gran % (Auto) % Neut % (Auto) % Lymph % (Auto) % [place] % (Auto) % Eos % (Auto) % Baso % (Auto) % Neut # (Auto) (1.40-6.50) K/uL Lymph # (Auto) (1.20-3.40) K/uL [place] # (Auto) (0.11-0.59) K/uL Eos # (Auto) (0.00-0.50) K/uL Baso # (Auto) (0.00-0.20) K/uL Immature Gran # (Auto) (0.01-0.20) K/uL PT (9.0-12.0) Seconds INR (0.9-1.1) APTT (21-31) Seconds PTT Ratio Sodium (136-145) mmol/L Potassium (3.5-5.1) mmol/L Chloride (98-107) mmol/L Carbon Dioxide (21-32) mmol/L Anion Gap (3-11) BUN (6-23) mg/dl Creatinine (0.6-1.2) mg/dl Est Cr Clr Drug Dosing Est GFR ( Amer) ml/min Est GFR (Non-Af Amer) ml/min BUN/Creatinine Ratio (10-20) Glucose (70-99(Fasting)) mg/dl Lactate 2.6 H* (0.4-2.0) mmol/L Calcium (8.6-10.3) mg/dl Magnesium (1.7-2.4) mg/dl Total Bilirubin (0.2-1.0) mg/dl AST (13-39) U/L ALT (7-52) U/L Alkaline Phosphatase (34-104) U/L Troponin I High Sens (0-14) pg/ml Total Protein (6.0-8.3) gm/dl Albumin (3.4-5.0) gm/dl Globulin (2.5-4.0) gm/dl Albumin/Globulin Ratio (0.9-2) Lipase (11-82) U/L Procalcitonin (0-0.5) ng/ml TSH (0.300-4.500) uIu/ml Urine Color Yellow Urine Appearance Clear (Clear) Urine pH 5.5 (4.5-7.5) Ur Specific [place] 1.024 (1.000-1.030) Urine Protein 2+ H (Negative) Urine Glucose (UA) Negative (Negative) Urine Ketones 4+ H (Negative) Urine Blood Negative (Negative) Urine Nitrite Negative (Negative) Urine Bilirubin Negative (Negative) Urine Urobilinogen Negative (Negative) Ur Leukocyte Esterase 1+ H (Negative) Urine WBC (Auto) 11-20 H (0-5) /hpf Urine RBC (Auto) 0-2 (0-2) /hpf U Hyaline Cast (Auto) >20 H (0-2) /lpf U Epithel Cells (Auto) 3-5 H (0-2) /hpf Urine Bacteria (Auto) 1+ H (None Seen) Adenovirus (PCR) (NotDetected) B. pertussis DNA (PCR) (NotDetected) B.parapertussis DNA PCR (NotDetected) C. pneumoniae DNA (PCR) (NotDetected) Coronavirus OC43 (PCR) (NotDetected) Coronavirus HKU1 (PCR) (NotDetected) Coronavirus 229E (PCR) (NotDetected) SARS-CoV-2 (PCR) (NotDetected) Coronavirus NL63 (PCR) (NotDetected) Human Metapneumovir PCR (NotDetected) Influenza Type A (PCR) (NotDetected) Influenza Type B (PCR) (NotDetected) M. pneumoniae (PCR) (NotDetected) Parainfluenza 1 (PCR) (NotDetected) Parainfluenza 2 (PCR) (NotDetected) Parainfluenza 3 (PCR) (NotDetected) Parainfluenza 4 (PCR) (NotDetected) RSV (PCR) (NotDetected) Entero/Rhino (PCR) (NotDetected) Imaging Data Radiologist's Impression: Chest X-Ray 07/27/23 12:56 XR chest 1V portable HISTORY: Emesis COMPARISON: Chest 04/13/2017. FINDINGS: The lungs are clear. Cardiac silhouette is normal in size. No pleural effusions. No pneumothorax. Scoliosis again noted. IMPRESSION: No significant change compared to the prior study. No acute process. ACT 112: Negative or not required by law. Electronically signed by: Miguel Kern M.D. 07/27/2023 1:24 PM Abdomen/Pelvis CT 07/27/23 13:[address] WITH IV CONTRAST HISTORY: Acute generalized abdominal pain with nausea, vomiting and shortness of breath Dyspnea, emesis, abd pain TECHNIQUE: Multiaxial CT images of the abdomen and pelvis were performed following the IV administration of 120 cc of Optiray, A dose lowering technique was utilized adhering to the principles of ALARA. COMPARISON STUDY: CTA chest of same day FINDINGS: Clear lung bases. Unremarkable spleen, pancreas and adrenal glands. Cholecystectomy. Unremarkable liver. Patency of the hepatic and portal veins. Kidneys are within normal limits. No hydronephrosis. Unremarkable urinary bladder, uterus and adnexa. Atherosclerosis of the aorta without aneurysm. No lymphadenopathy. Postoperative changes of the stomach and small bowel. Colonic diverticulosis. No definite bowel wall thickening or bowel obstruction. The appendix is not identified. Postoperative changes of the anterior abdominal wall with diastases recti. No acute fracture. Lumbar levoscoliosis. IMPRESSION: 1. No acute intra-abdominal or intrapelvic abnormality. 2. No bowel obstruction or bowel wall thickening. 3. Additional findings as above. ACT 112: Negative or not required by law. The above report was generated using voice recognition software. It may contain grammatical, syntax or spelling errors. Electronically signed by: Marcin Allen M.D. 07/27/2023 4:06 PM Chest CTA 07/27/23 13:13 CT angio chest PE protocol CLINICAL HISTORY: Dyspnea, emesis, abd pain TECHNIQUE: Multidetector row helical CT of the chest was performed with angiographic protocol. Coronal and sagittal reformations were obtained. Coronal and sagittal MIPS were obtained from the axial data set and were submitted for review. Automated dose lowering techniques and/or adjustment according to patient size were utilized for this exam. CT DOSE: 3038.77 mGy.cm Comparison: Comparison is made to CTA chest 10/17/2020 FINDINGS: Lungs and pleura: Normal. Heart and pericardium: Heart size is normal. No pericardial effusion. Vessels: Mild atherosclerotic changes in the aorta and coronary arteries. Mediastinum and lai: Unremarkable. Chest wall and lower neck: Unremarkable. Abdomen: For findings below the diaphragm, please refer to CT of the abdomen dated the same. Bones: Degenerative changes in the thoracic spine. Mild dextroscoliosis is noted in the thoracic spine. IMPRESSION: No acute abnormality and in particular no evidence of pulmonary embolus. ACT 112: Negative or not required by law. Electronically signed by: Marek Vargas M.D. 07/27/2023 3:[address] 07/27/23 13:[address] DOSE: HISTORY: emesis, headache TECHNIQUE: Multiaxial CT images of the head were performed without the use of intravenous contrast. Automated exposure control was utilized for this study. A dose lowering technique was utilized adhering to the principles of ALARA. Comparison: Head CT 10/04/2010. Findings: The paranasal sinuses and mastoid air cells are clear. The calvarium and skull base are intact. The ventricles and sulci are within normal limits. There is no mass, hematoma, midline shift, or acute infarct. Impression: No acute intracranial abnormality. ACT 112: Negative or not required by law. Electronically signed by: Miguel Kern M.D. 07/27/2023 3:39 PM MDM Narrative Patient was seen and evaluated as above in room A04b. Review was performed of triage nursing notes and vital signs. I did review pertinent previous visits and patient history. After obtaining a thorough history and physical examination the above work up was performed. Patient presents to us today for evaluation of vomiting, and now headache and abdominal pain over the past 4 days. She is tired appearing on examination without deficit. She is afebrile. She is tachycardic on arrival. Options of care were discussed with the patient. IV access was established. Labs were drawn. EKG was performed and reveals sinus tachycardia at a rate of 121 bpm per my interpretation. QTc 448. QRS 86. Chest x-ray was performed at bedside and per my interpretation was without acute process. Plan is to proceed with CTA of the chest as well as abdomen/pelvis CT to further evaluate the patient's shortness of breath as well as abdominal pain and vomiting. Furthermore we will also obtain CT of the head noting the patient's headache. CT imaging as above. Imaging was essentially negative overall regard to patient's presentation. There is mild leukocytosis 12.67. There is mild elevation of hemoglobin at 16.7. There is hyponatremia 135. There is elevated anion gap at 21. Creatinine 1.31. Troponin is mildly elevated at 18.6 likely secondary to the patient's infectious presentation. Lactate is mildly elevated just above 2. Procalcitonin elevated at 15. Alk phos 193. TSH reveals euthyroid state. Lipase is normal. Urinalysis reveals possible evidence of UTI but there are some epithelials noted. Furthermore ketones 4+ likely in the setting of the patient's reported history of not eating or drinking for the past 4 days with associated vomiting. Bio fire panel was negative. Empiric antibiotics were ordered and 30 mL/kilogram fluid which was 1500 mL based on ideal body weight was ordered for suspected sepsis. IV acetaminophen was ordered for her headache. IV Zosyn was the empiric IV antibiotic. At this time the patient does require hospitalization for further evaluation and management of her current condition. Case was discussed with hospitalist service. Please refer to further documentation regarding her stay. GCS: 15 In the evaluation and treatment of this patient the following differential diagnoses were entertained: Sepsis, bacteremia, pneumonia, acute abdomen, intestinal perforation, UTI, pyelonephritis, among others Impression & Plan Sepsis, Emesis, Lactic acid increased, Acute generalized abdominal pain Discharge Plan Visit Data Chief Complaint: Vomiting Stated Complaint: BODY PAIN, UNCONTROLABLE VOMITING, HEADACHE ED Provider: Marcos Luna ED Midlevel Provider: Horacio Robbins Discharge Problem: Sepsis, Emesis, Lactic acid increased, Acute generalized abdominal pain Patient Disposition: Admitted As Inpatient Condition: Good Discharge Instructions Interventions: ED Discharge Assessment Last Done: 07/27/23 18:55
[2023-07-27] MEDS: SODIUM CHLORIDE 0.9% 1,000 ML IV SCH (13:25)
--- NOTE | 2023-07-27 13:25 | XRay Report ---
XR chest 1V portable HISTORY: Emesis COMPARISON: Chest 04/13/2017. FINDINGS: The lungs are clear. Cardiac silhouette is normal in size. No pleural effusions. No pneumot horax. Scoliosis again noted. IMPRESSION: No significant change compared to the prior study. No acute process. ACT 112: Negative or not required by law. Electronically signed by: Miguel Kern M.D. 07/27/2023 1:24 PM
[2023-07-27] MEDS: ONDANSETRON INJ 2 MG/ML 2 ML VIAL IV STA (13:26)
[2023-07-27 14:00] LABS: Alanine Aminotransferase 26 U/L (7-52); Albumin Globulin Ratio 1.5 (0.9-2); Albumin Level 4.9 gm/dl (3.4-5.0); Alkaline Phosphatase 193 U/L (34-104); Anion Gap 21 (3-11); Aspartate Aminotransferase 23 U/L (13-39); BUN Creatinine Ratio 9.2 (10-20); Bilirubin,Total 0.6 mg/dl (0.2-1.0); Blood Urea Nitrogen 12 mg/dl (6-23); Calcium 9.8 mg/dl (8.6-10.3); Carbon Dioxide 11 mmol/L (21-32); Chloride 103 mmol/L (98-107); Est GFR (African American) 54.1 ml/min; Est GFR (Non-African American) 46.7 ml/min; Globulin 3.3 gm/dl (2.5-4.0); Glucose 104 mg/dl (70-99(Fasting)); INR 1.1 (0.9-1.1); Lipase 69 U/L (11-82); Magnesium 2.1 mg/dl (1.7-2.4); Partial Thromboplastin Time 28 Seconds (21-31); Potassium 4.2 mmol/L (3.5-5.1); Prothrombin Time 11.5 Seconds (9.0-12.0); Sodium 135 mmol/L (136-145); Total Protein 8.2 gm/dl (6.0-8.3)
[2023-07-27 14:06] LABS: Troponin I High Sensitivity 18.6 pg/ml (0-14)
[2023-07-27 14:16] LABS: Thyroid Stimulating Hormone 4.466 uIu/ml (0.300-4.500)
[2023-07-27] MEDS: PIPERACILLIN/TAZOBACTAM 4.5 GM/100 ML BAG IV ONE (14:28)
[2023-07-27 14:47] LABS: Basophils # (auto) 0.07 K/uL (0.00-0.20); Basophils % (auto) 0.6 %; Eosinophils # (auto) 0.01 K/uL (0.00-0.50); Eosinophils % (auto) 0.1 %; Hematocrit (blood only) 51.3 % (37.0-47.0); Hemoglobin 16.7 g/dl (12.0-16.0); Immature Granulocytes # (auto) 0.05 K/uL (0.01-0.20); Immature Granulocytes % (auto) 0.4 %; Lymphocytes # (auto) 2.24 K/uL (1.20-3.40); Lymphocytes % (auto) 17.7 %; Mean Corpuscular Hemoglobin 35.5 pg (25.0-34.0); Mean Corpuscular Hgb Conc 32.6 g/dL (32.0-36.0); Mean Corpuscular Volume 109.1 fL (80.0-100.0); Monocytes # (auto) 0.71 K/uL (0.11-0.59); Monocytes % (auto) 5.6 %; Neutrophils # (auto) 9.59 K/uL (1.40-6.50); Neutrophils % (auto) 75.6 %; Platelet Count 497 K/uL (130-400); RDW Coefficient of Variation 13.2 % (11.5-14.5); RDW Standard Deviation 53.6 fL (36.4-46.3); White Blood Count 12.67 K/ul (4.8-10.8)
[2023-07-27 14:47] LABS: Appearance Urine Clear (Clear); Bilirubin Urine Negative (Negative); Blood Urine Negative (Negative); Cast Urine Automated >20 /lpf (0-2); Color Urine Yellow; Glucose Urine UA Negative (Negative); Ketones Urine 4+ (Negative); Leukocyte Esterase Urine 1+ (Negative); Nitrite Urine Negative (Negative); Protein Urine 2+ (Negative); RBC Urine Automated 0-2 /hpf (0-2); Specific Gravity Urine 1.024 (1.000-1.030); Urobilinogen Urine Negative (Negative); pH Urine 5.5 (4.5-7.5)
[2023-07-27 14:48] LABS: Adenovirus PCR Not Detected (NotDetected); Bordetella parapertussis PCR Not Detected (NotDetected); Bordetella pertussis PCR Not Detected (NotDetected); Chlamydia pneumoniae PCR Not Detected (NotDetected); Coronavirus 229E PCR Not Detected (NotDetected); Coronavirus CoV-2 (COVID19)PCR Not Detected (NotDetected); Coronavirus HKU1 PCR Not Detected (NotDetected); Coronavirus NL63 PCR Not Detected (NotDetected); Coronavirus OC43PCR Not Detected (NotDetected); Human Metapneumovirus PCR Not Detected (NotDetected); Influenza A PCR Not Detected (NotDetected); Influenza B PCR Not Detected (NotDetected); Mycoplasma pneumoniae PCR Not Detected (NotDetected); Parainfluenza Virus 1 PCR Not Detected (NotDetected); Parainfluenza Virus 2 PCR Not Detected (NotDetected); Parainfluenza Virus 3 PCR Not Detected (NotDetected); Parainfluenza Virus 4 PCR Not Detected (NotDetected); Respiratory Syncytial VirusPCR Not Detected (NotDetected); Rhinovirus/Enterovirus PCR Not Detected (NotDetected)
[2023-07-27 15:01] LABS: Bacteria Urine Automated 1+ (None Seen)
[2023-07-27] MEDS: OPTIRAY 320 125ml IV ONE (15:06)
[2023-07-27] MEDS: SODIUM CHLORIDE 0.9% 500 ML IV ONE (15:22)
--- NOTE | 2023-07-27 15:37 | CT Scan Report ---
CT angio chest PE protocol CLINICAL HISTORY: Dyspnea, emesis, abd pain TECHNIQUE: Multidetector row helical CT of the chest was performed with angiographic protocol. Arreguin l and sagittal reformations were obtained. Coronal and sagittal MIPS were obtained from the axial imelda a set and were submitted for review. Automated dose lowering techniques and/or adjustment according to patient size were utilized for this exam. CT DOSE: 3038.77 mGy.cm Comparison: Comparison is made to CTA chest 10/17/2020 FINDINGS: Lungs and pleura: Normal. Heart and pericardium: Heart size is normal. No pericardial effusion. Vessels: Mild atherosclerotic changes in the aorta and coronary arteries. Mediastinum and lai: Unremarkable. Chest wall and lower neck: Unremarkable. Abdomen: For findings below the diaphragm, please refer to CT of the abdomen dated the same. Bones: Degenerative changes in the thoracic spine. Mild dextroscoliosis is noted in the thoracic spin e. IMPRESSION: No acute abnormality and in particular no evidence of pulmonary embolus. ACT 112: Negative or not required by law. Electronically signed by: Marek Vargas M.D. 07/27/2023 3:34 PM
--- NOTE | 2023-07-27 15:40 | CT Scan Report ---
HEAD CT NONCONTRAST CT DOSE: HISTORY: emesis, headache TECHNIQUE: Multiaxial CT images of the head were performed without the use of intravenous contrast. A utomated exposure control was utilized for this study. A dose lowering technique was utilized adheri ng to the principles of ALARA. Comparison: Head CT 10/04/2010. Findings: The paranasal sinuses and mastoid air cells are clear. The calvarium and skull base are int act. The ventricles and sulci are within normal limits. There is no mass, hematoma, midline shift, or acute infarct. Impression: No acute intracranial abnormality. ACT 112: Negative or not required by law. Electronically signed by: Miguel Kern M.D. 07/27/2023 3:39 PM
--- NOTE | 2023-07-27 16:08 | CT Scan Report ---
ABDOMEN AND PELVIS CT WITH IV CONTRAST HISTORY: Acute generalized abdominal pain with nausea, vomiting and shortness of breath Dyspnea, griffin sis, abd pain TECHNIQUE: Multiaxial CT images of the abdomen and pelvis were performed following the IV administrat ion of 120 cc of Optiray, A dose lowering technique was utilized adhering to the principles of ALARA . COMPARISON STUDY: CTA chest of same day FINDINGS: Clear lung bases. Unremarkable spleen, pancreas and adrenal glands. Cholecystectomy. Unrema rkable liver. Patency of the hepatic and portal veins. Kidneys are within normal limits. No hydroneph rosis. Unremarkable urinary bladder, uterus and adnexa. Atherosclerosis of the aorta without aneurysm . No lymphadenopathy. Postoperative changes of the stomach and small bowel. Colonic diverticulosis. No definite bowel wall thickening or bowel obstruction. The appendix is not identified. Postoperative changes of the anterio r abdominal wall with diastases recti. No acute fracture. Lumbar levoscoliosis. IMPRESSION: 1. No acute intra-abdominal or intrapelvic abnormality. 2. No bowel obstruction or bowel wall thickening. 3. Additional findings as above. ACT 112: Negative or not required by law. The above report was generated using voice recognition software. It may contain grammatical, syntax o r spelling errors. Electronically signed by: Marcin Allen M.D. 07/27/2023 4:06 PM
--- NOTE | 2023-07-27 16:18 | History & Physical Report ---
Date of Service July 27, 2023 Assessment & Plan (1) Sepsis: Plan: Possible source urine - although no specific urinary complaints or imaging findings IV Zosyn for empiric coverage pending urine and blood cultures Stool and c. diff PCR ordered given loose stool (although not significant output per patient) Noted prior similar admission in 09/2020 with infected knee seroma following TKA, causing intractable N&V but no current skin infection found Lactate 2.2 -> 2.6, Total 2.5L IV fluids bolus given (2) High anion gap metabolic acidosis: Plan: Suspect mostly starvation ketosis but also lactate mildly elevated, no concurrent NAGMA to suggest need for bicarb Lack of improvement of lactate despite normotensive after adequate fluid resuscitation ?Type B hyperlactatemia - prior gastric bypass will get thiamine level and start thiamine 200mg IV BID Will get acetaminophen, salicylate and alcohol level with next VBG/BMP Similar presentation with an infected seroma in 09/2020 with intractable vomiting causing starvation ketosis Starvation ketosis - Rx D50 25ml IV now, then start D5 IV drip, start clears but advance diet as tolerated (3) Hypothyroidism: Plan: TSH WNL Continue levothyroxine (4) Hypertension: Plan: Continue metoprolol succinate in AM Hold all other anti-hypertensives in setting of sepsis (5) History of pulmonary embolism: Plan: VTE Prophylaxis as below Plan VTE Prophylaxis - Lovenox 40mg SQ HS Diet - Clear liquids Disposition - admit to PCU Admission and Anticipated Discharge Date Admission Date: July 27, 2023 History of Present Illness Chief Complaint: Generalized fatigue, rigors, vomiting Primary Care Provider: Werner Chapin MD Idania Awad is a 53 year old female who presents to the ER with confusion, vomiting, generalized weakness and fatigue. Symptoms started on . Rigors, generalized weakness, fatigue, unable to take her usual medications for the last 4 days. Initially started with vomiting. Abdominal pain happened later as she was unable to take her usual pain medications and associated with vomiting. Thursday started with diarrhea (not much stool but was loose). Previous having chest pain but none currently (only really occurred with coughing and vomiting). Acute on chronic back pain. Always have nasal congestion and sinus pain (no acute change). Possible urine smelling different. Generalized pain severity currently 8/10 most in her back. Similar symptoms when she had an infected seroma following TKA in September 2020. Currently her knee feels fine and no skin infection. Allergies Allergy/AdvReac Type Severity Reaction Status Date / Time adhesive Allergy Severe Skin Verified 07/09/23 07:04 tearing (can toleratere tega-derm) Sulfa (Sulfonamide Allergy Severe Rash Verified 07/09/23 07:04 Antibiotics) nitrofurantoin Allergy Intermediate Hives Verified 07/09/23 07:04 enalapril AdvReac Mild Cough Verified 07/09/23 07:04 cephalexin [From Keflex] AdvReac Nausea Verified 07/09/23 07:04 Home Medications Medication Instructions Recorded Confirmed Type ferrous sulfate 325 mg (65 mg 325 mg PO QAM #30 tabs 11/10/18 07/27/23 History iron) tablet venlafaxine 100 mg tablet 100 mg PO TID #90 tabs 11/29/19 07/27/23 Rx acetaminophen 650 mg 650 mg PO BID PRN Pain 09/04/20 07/27/23 History tablet,extended release cyanocobalamin (vitamin B-12) 1,000 mcg PO QAM 09/04/20 07/27/23 History 1,000 mcg capsule diphenhydramine HCl 25 mg capsule 25 mg PO TID PRN Allergy Symptoms 09/04/20 07/27/23 History (Benadryl) hydroxyzine HCl 50 mg tablet 50 mg PO BID PRN itching 09/04/20 07/27/23 History ibuprofen 200 mg tablet 800 mg PO BID PRN Pain 09/04/20 07/27/23 History hydroxyzine HCl 50 mg tablet 100 mg PO HS PRN Itching 11/17/21 07/27/23 History albuterol sulfate 90 mcg/actuation 2 puff inhalation Q6H PRN 07/01/22 07/27/23 Rx aerosol inhaler shortness of breath or wheezing #6.7 grams cholecalciferol (vitamin D3) 25 1,000 unit PO QPM 07/15/22 07/27/23 History mcg (1,000 unit) tablet gabapentin 300 mg capsule 900 mg (3 x 300 mg) PO TID anxiety 12/09/22 07/27/23 Rx #270 caps omeprazole 10 mg capsule,delayed 10 mg PO QAM #90 caps 12/25/22 07/27/23 Rx release sumatriptan succinate 100 mg 100 mg PO .COMPLEX 90 days #27 tabs 03/29/23 07/27/23 Rx tablet (Imitrex) atorvastatin 10 mg tablet 10 mg PO QPM #90 tabs 06/01/23 07/27/23 Rx losartan 25 mg tablet 25 mg PO QAM #90 tabs 06/01/23 07/27/23 Rx metoprolol succinate 25 mg 25 mg PO QAM #90 tabs 06/01/23 07/27/23 Rx tablet,extended release 24 hr montelukast 10 mg tablet 10 mg PO QAM #90 tabs 06/01/23 07/27/23 Rx methocarbamol 500 mg tablet 500 mg PO Q12 PRN LBP #60 tabs 07/01/23 07/27/23 Rx ondansetron HCl 4 mg tablet 4 mg PO DAILY PRN nausea and 07/01/23 07/27/23 Rx vomiting #30 tabs hydrocodone 7.5 mg-acetaminophen 1 tab PO .5 times daily 07/09/23 07/27/23 History 325 mg tablet levothyroxine 137 mcg tablet 137 mcg PO QAM #30 tabs 07/22/23 07/27/23 Rx doxepin 75 mg capsule 75 mg PO HS 07/27/23 07/27/23 History mirtazapine 15 mg tablet 15 mg PO HS 07/27/23 07/27/23 History Past Med/Surg History Problem List (Updated 07/27/23 @ 19:41 by Horacio Robbins PA-C) Acute generalized abdominal pain (Acute) Lactic acid increased (Acute) Emesis (Acute) Sepsis (Acute) High anion gap metabolic acidosis Coronary artery calcification Ascending aorta dilatation Numbness and tingling of both feet History of pulmonary embolism Rotator cuff tear, right Allergies Recurrent sinus infections Abnormal CT scan, chest Right shoulder pain Anxiety disorder (Acute) Chronic pain (Acute) Depression (Acute) Fibromyalgia (Acute) Hypertension (Acute) Hypothyroidism (Acute) Insomnia (Acute) Low back pain (Acute) Migraine headache (Acute) Status post intestinal bypass (Acute) Tachycardia (Acute) Ventral hernia (Acute) Vitamin B12 deficiency (Acute) Vitamin D deficiency disease (Acute) Aortic aneurysm (Chronic) Migraines (Chronic) Medical History History of anesthesia reaction during colonoscopy in July 2022, was still partially awake, and felt everything happening History of degenerative disc disease History of anesthesia reaction "anxiety when I wake up" PONV (postoperative nausea and vomiting) Morbid obesity Fibromyalgia Arthritis GERD (gastroesophageal reflux disease) controlled Hypothyroidism Depression Anxiety Migraine Hx Asthma Possible - stable Aortic aneurysm CT 2020 [place] 3.9cm Thoracic ascending aorta aneurysm (3.7cm/2019), under surveillance by [facility] (Dr. Suarez) > recommend recheck in 2 years Hypertension Ventral hernia Polysubstance overdose Remotely noted 2014 per records History of suicidal ideation Remotely noted 2014 per records Surgical History History of arthroscopy of right knee History of hand surgery Right finger surgery Status post right knee replacement (~08/2020) S/P tubal ligation H/O oral surgery Status post hysteroscopy S/P hernia repair multiple S/P gastric surgery S/P cholecystectomy History of cryosurgery History of gastric bypass History of cholecystectomy History of back surgery For herniation Family History Grandfather Arthritis Coronary heart disease Dementia Hypertension Myocardial infarction Aunt Breast cancer Grandmother Breast cancer Brother Coronary heart disease Hypertension Daughter Depression Father Obesity Denies family history of Ovarian cancer Prostate cancer Colorectal cancer Social History Smoking Status: Never smoker Second Hand Exposure: No; Do You Dip or Chew Tobacco: No; Hx Alcohol Use: No Hx Substance Use: No Preferred Language: Malawian Communication Ability: Effective 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 Beliefs That Will Affect Care: None marital status: Current Living Situation: Family Current Living Situation Comment: SONS LIVE WITH PT current occupational status: disabled Feels Safe at Home: Yes Dental Care, Regularly: No Physical Activity Frequency: Does not Exercise Seatbelt Use: always Sunscreen Use: Yes Assistive Devices: Glasses Review of Systems Review of Systems: All systems reviewed & are unremarkable except as noted in HPI & below Physical Exam Constitutional: well developed; + not well nourished and no acute distress Eyes: PERRL, conjunctivae normal, anicteric sclerae ENMT: external ear and nose normal, oropharynx normal Mouth: oral mucous membranes not dry Respiratory: normal respiratory effort, lungs clear to auscultation Cardiovascular: Rate/Rhythm: regular rhythm and + tachycardic Heart Sounds: no murmur Extremities: + abnormal capillary refill (6 seconds in peripheries, normal centrally), no calf tenderness and no pedal edema Gastrointestinal (Abdomen): Inspection/Auscultation: abdomen normal to inspection; abdomen not distended Percussion/Palpation: + abdomen tender (generalized, increased centrally) and abdomen soft; no guarding and abdomen not rigid Musculoskeletal: no cyanosis or clubbing, extremities motor strength 5/5 Skin: + mottling Neurologic: moves all extremities and awake; no focal motor deficits and not confused Psychiatric: A+Ox3, euthymic affect Genitourinary: no CVA tenderness Results & Data Results & Data Vital Signs (Past 12 Hours) Vital Signs Temp Pulse Pulse Resp BP BP Pulse Ox 07/27/23 15:33 37.2 C 109 H 24 127/70 98 07/27/23 14:03 105 H 14 07/27/23 13:39 109 H 20 94 07/27/23 13:31 146/103 H 07/27/23 13:21 124 H 27 H 96 07/27/23 13:21 36.9 C 07/27/23 13:12 129 H 19 07/27/23 13:10 117 H 07/27/23 12:57 97 07/27/23 12:53 35.5 C L 128 H 24 119/96 97 O2 Del Method 07/27/23 15:33 Room Air 07/27/23 14:03 07/27/23 13:39 07/27/23 13:31 07/27/23 13:21 07/27/23 13:21 07/27/23 13:12 07/27/23 13:10 07/27/23 12:57 Room Air 07/27/23 12:53 Room Air Laboratory Results Abnormal lab results 07/27/23 07/27/23 07/27/23 Range/Units 13:04 13:11 14:00 WBC 12.67 H (4.8-10.8) K/ul Hgb 16.7 H (12.0-16.0) g/dl Hct 51.3 H (37.0-47.0) % MCV 109.1 H (80.0-100.0) fL MCH 35.5 H (25.0-34.0) pg RDW Std Deviation 53.6 H (36.4-46.3) fL Plt Count 497 H (130-400) K/uL Neut # (Auto) 9.59 H (1.40-6.50) K/uL [place] # (Auto) 0.71 H (0.11-0.59) K/uL Sodium 135 L (136-145) mmol/L Carbon Dioxide 11 L (21-32) mmol/L Anion Gap 21 H (3-11) Creatinine 1.31 H (0.6-1.2) mg/dl BUN/Creatinine Ratio 9.2 L (10-20) Glucose 104 H (70-99(Fasting)) mg/dl Lactate 2.2 H* (0.4-2.0) mmol/L Alkaline Phosphatase 193 H (34-104) U/L Troponin I High Sens 18.6 H (0-14) pg/ml Procalcitonin 15.00 H (0-0.5) ng/ml Urine Protein 2+ H (Negative) Urine Ketones 4+ H (Negative) Ur Leukocyte Esterase 1+ H (Negative) Urine WBC (Auto) 11-20 H (0-5) /hpf U Hyaline Cast (Auto) >20 H (0-2) /lpf U Epithel Cells (Auto) 3-5 H (0-2) /hpf Urine Bacteria (Auto) 1+ H (None Seen) 07/27/23 Range/Units 15:48 WBC (4.8-10.8) K/ul Hgb (12.0-16.0) g/dl Hct (37.0-47.0) % MCV (80.0-100.0) fL MCH (25.0-34.0) pg RDW Std Deviation (36.4-46.3) fL Plt Count (130-400) K/uL Neut # (Auto) (1.40-6.50) K/uL [place] # (Auto) (0.11-0.59) K/uL Sodium (136-145) mmol/L Carbon Dioxide (21-32) mmol/L Anion Gap (3-11) Creatinine (0.6-1.2) mg/dl BUN/Creatinine Ratio (10-20) Glucose (70-99(Fasting)) mg/dl Lactate 2.6 H* (0.4-2.0) mmol/L Alkaline Phosphatase (34-104) U/L Troponin I High Sens (0-14) pg/ml Procalcitonin (0-0.5) ng/ml Urine Protein (Negative) Urine Ketones (Negative) Ur Leukocyte Esterase (Negative) Urine WBC (Auto) (0-5) /hpf U Hyaline Cast (Auto) (0-2) /lpf U Epithel Cells (Auto) (0-2) /hpf Urine Bacteria (Auto) (None Seen) Diagnostic Findings HEAD CT NONCONTRAST CT DOSE: HISTORY: emesis, headache TECHNIQUE: Multiaxial CT images of the head were performed without the use of intravenous contrast. Automated exposure control was utilized for this study. A dose lowering technique was utilized adhering to the principles of ALARA. Comparison: Head CT 10/04/2010. Findings: The paranasal sinuses and mastoid air cells are clear. The calvarium and skull base are intact. The ventricles and sulci are within normal limits. There is no mass, hematoma, midline shift, or acute infarct. Impression: No acute intracranial abnormality. CT angio chest PE protocol CLINICAL HISTORY: Dyspnea, emesis, abd pain TECHNIQUE: Multidetector row helical CT of the chest was performed with angiographic protocol. Coronal and sagittal reformations were obtained. Coronal and sagittal MIPS were obtained from the axial data set and were submitted for review. Automated dose lowering techniques and/or adjustment according to patient size were utilized for this exam. CT DOSE: 3038.77 mGy.cm Comparison: Comparison is made to CTA chest 10/17/2020 FINDINGS: Lungs and pleura: Normal. Heart and pericardium: Heart size is normal. No pericardial effusion. Vessels: Mild atherosclerotic changes in the aorta and coronary arteries. Mediastinum and lai: Unremarkable. Chest wall and lower neck: Unremarkable. Abdomen: For findings below the diaphragm, please refer to CT of the abdomen dated the same. Bones: Degenerative changes in the thoracic spine. Mild dextroscoliosis is noted in the thoracic spine. IMPRESSION: No acute abnormality and in particular no evidence of pulmonary embolus. ABDOMEN AND PELVIS CT WITH IV CONTRAST HISTORY: Acute generalized abdominal pain with nausea, vomiting and shortness of breath Dyspnea, emesis, abd pain TECHNIQUE: Multiaxial CT images of the abdomen and pelvis were performed following the IV administration of 120 cc of Optiray, A dose lowering technique was utilized adhering to the principles of ALARA. COMPARISON STUDY: CTA chest of same day FINDINGS: Clear lung bases. Unremarkable spleen, pancreas and adrenal glands. Cholecystectomy. Unremarkable liver. Patency of the hepatic and portal veins. Kidneys are within normal limits. No hydronephrosis. Unremarkable urinary bladder, uterus and adnexa. Atherosclerosis of the aorta without aneurysm. No lymphadenopathy. Postoperative changes of the stomach and small bowel. Colonic diverticulosis. No definite bowel wall thickening or bowel obstruction. The appendix is not identified. Postoperative changes of the anterior abdominal wall with diastases recti. No acute fracture. Lumbar levoscoliosis. IMPRESSION: 1. No acute intra-abdominal or intrapelvic abnormality. 2. No bowel obstruction or bowel wall thickening. 3. Additional findings as above. Medications Administered ER Medications Given: Normal saline 1L bolus Ondansetron 4mg IV Zosyn 4.5g IV Normal saline 500ml bolus ECG Rate (beats per minute): 121 Rhythm: sinus tachycardia Findings: no acute ischemic change Comparison ECG Date: from (October 18, 2020) Change: no significant change Code Status & VTE Plan Code Status Full VTE Prophylaxis Plan VTE Prophylaxis will be ordered: Yes PG Care Time/CCT Total # of Minutes Spent Total Time Spent with Patient: Total time spent is greater than 50% in coordination of care (as documented) at patient's floor/unit and/or counseling patient: Coding Level of Care Code 07803 INT INP/OBS CARE 3/75MIN Diagnoses Sepsis A41.9 High anion gap metabolic acidosis E87.29 Hypothyroidism E03.9 Hypertension I10 History of pulmonary embolism Z86.711
[2023-07-27 16:54] LABS: Base Excess VBG -19.8 mEq/L; HCO3 VBG 9 mmol/L; Oxygen Saturation VBG < 60.0 %; PCO2 VBG 29 mmHg (38-50); PO2 VBG 27 mmHg; pH VBG 7.09 (7.36-7.41)
[2023-07-27] MEDS: LACTATED RINGER'S 1,000 ML IV ONE (17:19)
[2023-07-27] MEDS: ACETAMINOPHEN 1,000 MG/100 ML VIAL IV STA (17:20)
[2023-07-27] MEDS: MoRPHine SULFATE 4 MG/ML 1 ML CARP\\VIAL IV STA (17:20)
[2023-07-27] MEDS: PANTOprazole 40 MG in SYRINGE 0 ML IV STA (17:20)
[2023-07-27] MEDS: DEXTROSE 50% 50 ML SYRINGE IV ONE (18:04)
[2023-07-27] MEDS ORDERED: ONDANSETRON INJ 2 MG/ML 2 ML VIAL IV PRN (18:55)
[2023-07-27] MEDS: D5W AND LACTATED RINGERS 1,000 ML IV SCH (19:43)
[2023-07-27] MEDS: PIPERACILLIN/TAZOBACTAM 4.5 GM in DEXTROSE 5% MINI-B 100 ML IV SCH (20:06)
[2023-07-27 20:43] LABS: Base Excess VBG -17.8 mEq/L; HCO3 VBG 9 mmol/L; Oxygen Saturation VBG < 60.0 %; PCO2 VBG 26 mmHg (38-50); PO2 VBG 30 mmHg; pH VBG 7.16 (7.36-7.41)
[2023-07-27] MEDS: GABAPENTIN 300 MG CAP PO SCH (20:53)
[2023-07-27] MEDS: CHOLECALCIFEROL 25 MCG (1000 UNITS) TAB PO SCH (20:53)
[2023-07-27] MEDS: ATORVASTATIN 10 MG TAB PO SCH (20:54)
[2023-07-27] MEDS: DOXEPIN HCL 75 MG CAPSULE PO SCH (20:54)
[2023-07-27] MEDS: VENLAFAXINE HCL 50 MG TAB PO SCH (20:54)
[2023-07-27] MEDS: METHOCARBAMOL 500 MG TABLET PO PRN (20:55)
[2023-07-27] MEDS: ENOXAPARIN INJ 40 MG/0.4 ML SYR SQ SCH (20:55)
[2023-07-27] MEDS: MIRTAZAPINE TAB 15 MG TAB PO SCH (20:55)
[2023-07-27 21:00] LABS: Calcium 8.9 mg/dl (8.6-10.3); Magnesium 1.9 mg/dl (1.7-2.4); Potassium 3.7 mmol/L (3.5-5.1)
[2023-07-27 21:07] LABS: Creatinine Clr Calc Pharmacy 72.2 ml/min; Est GFR (Non-African American) 64.7 ml/min; Phosphorus 2.2 mg/dl (2.5-4.9)
[2023-07-27 21:20] LABS: Acetaminophen < 3 ug/ml (10-30); Salicylate < 3.0 mg/dl (3.0-30)
[2023-07-27] MEDS: THIAMINE HCL 200 MG in SODIUM CHLORIDE 0.9% 50 ML IV SCH (21:22)
[2023-07-27] MEDS ORDERED: SUMAtriptan succinate 100 MG TAB PO PRN (22:00)
[2023-07-27] MEDS ORDERED: POTASSIUM PHOS 3 MMOL/1 ML INFUSION IV STA (22:47)
[2023-07-27] MEDS: HYDROCODONE/ACETAMINOPHEN 7.5/325MG TAB PO SCH (22:52)
[2023-07-28] MEDS: POTASSIUM PHOSPHATE 9 MMOL in SODIUM CHLORIDE 0.9% 250 ML IV ONE (00:07)
[2023-07-28] MEDS: LEVOTHYROXINE SODIUM 137 MCG TABLET PO SCH (06:12)
[2023-07-28 06:55] LABS: Base Excess VBG -9.3 mEq/L; HCO3 VBG 17 mmol/L; Oxygen Saturation VBG 80.6 %; PCO2 VBG 38 mmHg (38-50); PO2 VBG 51 mmHg; pH VBG 7.26 (7.36-7.41)
[2023-07-28 07:29] LABS: Albumin Globulin Ratio 1.6 (0.9-2); Albumin Level 3.6 gm/dl (3.4-5.0); BUN Creatinine Ratio 8.3 (10-20); Bilirubin,Total 0.6 mg/dl (0.2-1.0); Calcium 8.2 mg/dl (8.6-10.3); Creatinine Clr Calc Pharmacy 83.8 ml/min; Est GFR (African American) 92.6 ml/min; Est GFR (Non-African American) 79.9 ml/min; Globulin 2.3 gm/dl (2.5-4.0); Magnesium 1.7 mg/dl (1.7-2.4); Phosphorus 2.2 mg/dl (2.5-4.9); Total Protein 5.9 gm/dl (6.0-8.3)
[2023-07-28 07:45] LABS: Basophils # (auto) 0.04 K/uL (0.00-0.20); Basophils % (auto) 0.7 %; Eosinophils # (auto) 0.13 K/uL (0.00-0.50); Eosinophils % (auto) 2.3 %; Hematocrit (blood only) 37.1 % (37.0-47.0); Hemoglobin 12.5 g/dl (12.0-16.0); Immature Granulocytes # (auto) 0.02 K/uL (0.01-0.20); Immature Granulocytes % (auto) 0.4 %; Lymphocytes # (auto) 1.51 K/uL (1.20-3.40); Lymphocytes % (auto) 26.7 %; Mean Corpuscular Hemoglobin 35.6 pg (25.0-34.0); Mean Corpuscular Hgb Conc 33.7 g/dL (32.0-36.0); Mean Corpuscular Volume 105.7 fL (80.0-100.0); Mean Platelet Volume 9.8 fL (9.4-12.4); Monocytes # (auto) 0.54 K/uL (0.11-0.59); Monocytes % (auto) 9.5 %; Neutrophils # (auto) 3.42 K/uL (1.40-6.50); Neutrophils % (auto) 60.4 %; Platelet Count 275 K/uL (130-400); RDW Coefficient of Variation 13.1 % (11.5-14.5); RDW Standard Deviation 50.5 fL (36.4-46.3); Red Blood Count 3.51 M/uL (4.20-5.40); White Blood Count 5.66 K/ul (4.8-10.8)
[2023-07-28] MEDS: MONTELUKAST SODIUM 10 MG TABLET PO SCH (08:16)
[2023-07-28] MEDS: CYANOCOBALAMIN (B-12) 500 MCG TABLET PO SCH (08:17)
[2023-07-28] MEDS: METOPROLOL SUCC 25MG EXT REL TAB PO SCH (08:17)
[2023-07-28] MEDS: FERROUS SULFATE 325 MG TAB PO SCH (08:17)
--- NOTE | 2023-07-28 08:36 | Hospitalist Progress Note ---
Date of Service July 28, 2023 Assessment & Plan (1) Sepsis: Plan: Possible source urine - abnormal ua, although no specific urinary complaints or imaging findings urine culture negative respiratory biofire negative IV Zosyn for empiric coverage blood cultures negative to date Stool and c. diff PCR ordered patient on a significant loose stool in hospital and samples not been sent to laboratory of sample out appropriate at this time Noted prior similar admission in 09/2020 with infected knee seroma following TKA, causing intractable N&V but no current skin infection found Lactate 2.2 -> 2.6, Total 2.5L IV fluids bolus given, continues on fluids high anion gap acidosis, suspect lactic acidosis now closed starvation ketosis suspected with prior gastric bypass will get thiamine level and started thiamine (2) Hypothyroidism: Plan: TSH WNL Continue levothyroxine (3) Hypertension: Plan: Continue metoprolol succinate in AM Hold all other anti-hypertensives in setting of sepsis Plan VTE Prophylaxis - Lovenox 40mg SQ HS, history of PE Admission and Anticipated Discharge Date Admission Date: July 27, 2023 Subjective Patient looks improved feels improved no defined source of infection has not been identified intra-abdominal CAT scan plus laboratories are without remark for liver irritation or fluid collection abscess. Physical Exam Physical Exam: Awake alert appropriate no new complaints or problems Cardiac exam is regular lungs are clear abdomen NABS soft nontender nondistended no skin lesions at this time Results & Data Results & Data Vital Signs (Past 12 Hours) Vital Signs Temp Pulse Pulse Resp BP Pulse Ox O2 Del Method 07/28/23 07:02 98.1 F 91 H 18 125/84 98 Room Air 07/28/23 02:33 97.7 F 101 H 18 120/82 95 Room Air 07/27/23 23:29 98.4 F 114 H 18 140/84 96 Room Air 07/27/23 22:02 132 H 07/27/23 20:56 116 H 07/27/23 20:40 Nasal Cannula 07/27/23 20:40 98.1 F 115 H 18 137/83 98 Room Air Laboratory Results Reviewed CBC reviewed chemistry PG Care Time/CCT Total # of Minutes Spent Total Time Spent with Patient: Total time spent is greater than 50% in coordination of care (as documented) at patient's floor/unit and/or counseling patient: Coding Level of Care Code 58030 SUB INP/OBS CARE 3/50MIN Diagnoses Sepsis A41.9 Hypothyroidism E03.9 Hypertension I10
[2023-07-28] MEDS: MAGNESIUM SULFATE / D5W 1 GM/100 ML BAG IV ONE (09:01)
[2023-07-28] MEDS: POTASSIUM CHLORIDE CRTAB 20 MEQ TABCR PO SCH (09:17)
[2023-07-28] MEDS: POTASSIUM CHLORIDE 40 MEQ in SODIUM CHLORIDE 0.9% 1,000 ML IV SCH (10:01)
[2023-07-28] MEDS: PANTOprazole 40 MG in SYRINGE 0 ML IV SCH (11:31)
[2023-07-29] MEDS: HYDROCODONE/ACETAMINOPHEN 7.5/325MG TAB PO PRN (04:02)
--- NOTE | 2023-07-29 06:10 | Electrocardiogram Report ---
Test Reason : Blood Pressure : / mmHG Vent. Rate : 121 BPM Atrial Rate : 121 BPM P-R Int : 138 ms QRS Dur : 086 ms QT Int : 316 ms P-R-T Axes : 069 -31 073 degrees QTc Int : 448 ms Sinus tachycardia Possible Left atrial enlargement Left axis deviation Poor R wave progression, consider anterior HI vs. lead placement vs. LVH Abnormal ECG When compared with ECG of 18-OCT-2020 16:03, Questionable change in QRS duration Confirmed by Donnell Reina ([id number]) on 07/29/2023 6:10:26 AM Referred By: REFERRED SELF Confirmed By:Donnell Reina
--- NOTE | 2023-07-29 14:17 | Hospitalist Progress Note ---
Date of Service July 29, 2023 Assessment & Plan (1) Sepsis: Plan: Possible source urine - abnormal ua, although no specific urinary complaints or imaging findings urine culture negative respiratory biofire negative IV Zosyn for empiric coverage blood cultures negative to date Stool and c. 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 will get thiamine level and started thiamine Plan will make a total therapy transitioning to oral medications at time of discharge (2) Hypothyroidism: Plan: TSH WNL Continue levothyroxine (3) Hypertension: Plan: Continue metoprolol succinate in AM Blood pressure is rebounding restart losartan on 07/30/2023 Plan VTE Prophylaxis - Lovenox 40mg SQ HS, history of PE Admission and Anticipated Discharge Date Admission Date: July 27, 2023 Subjective After discussion on 07/27 was expecting patient to be able to be discharged on 07/28 however she states that she is having difficulty ambulating as this is been a longstanding problem due to her chronic back pain. She states that she typically walks with assistive device but is never been formally evaluated will order PT evaluation to determine assistive device which be appropriate for this patient. She is already enrolled in pain management for symptom control Physical Exam Physical Exam: Awake alert appropriate no new complaints or problems Cardiac exam is regular lungs are clear abdomen NABS soft nontender nondistended Results & Data Results & Data Vital Signs (Past 12 Hours) Vital Signs Temp Pulse Pulse Resp BP Pulse Ox O2 Del Method 07/29/23 10:52 98.1 F 71 20 148/86 H 98 Room Air 07/29/23 10:48 98.1 F 82 19 108/74 93 Room Air 07/29/23 08:00 61 07/29/23 07:12 98.1 F 84 20 117/78 96 Room Air 07/29/23 02:52 97.7 F 82 18 122/86 99 Room Air PG Care Time/CCT Total # of Minutes Spent Total Time Spent with Patient: Total time spent is greater than 50% in coordination of care (as documented) at patient's floor/unit and/or counseling patient: Coding Level of Care Code 99354 SUB INP/OBS CARE 2/35MIN Diagnoses Sepsis A41.9 Hypothyroidism E03.9 Hypertension I10
[2023-07-30 07:37] LABS: Creatinine Clr Calc Pharmacy 100.7 ml/min; Est GFR (African American) 115.5 ml/min; Est GFR (Non-African American) 99.6 ml/min
[2023-07-30 08:49] LABS: BUN Creatinine Ratio 14.3 (10-20); Calcium 8.3 mg/dl (8.6-10.3); Magnesium 2.1 mg/dl (1.7-2.4); Potassium 3.7 mmol/L (3.5-5.1)
[2023-07-30] MEDS: LOSARTAN POTASSIUM 25 MG TAB PO SCH (08:56)
--- NOTE | 2023-07-30 17:23 | Discharge Summary ---
Discharge Summary Date of Service July 30, 2023 Principal Dx & Hospital Course #1 = Principal Diagnosis (1) Sepsis: Patient look dramatically better today of discharge. Possible source urine - abnormal ua, although no specific urinary complaints or imaging findings urine culture negative respiratory biofire negative IV Zosyn for empiric coverage blood cultures negative to date will complete a weeks course of therapy transitioning to Augmentin at time of discharge Stool and c. 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 Admission HPI Per Admitting Provider Idania Awad is a 53 year old female who presents to the ER with confusion, vomiting, generalized weakness and fatigue. Symptoms started on . Rigors, generalized weakness, fatigue, unable to take her usual medications for the last 4 days. Initially started with vomiting. Abdominal pain happened later as she was unable to take her usual pain medications and associated with vomiting. Thursday started with diarrhea (not much stool but was loose). Previous having chest pain but none currently (only really occurred with coughing and vomiting). Acute on chronic back pain. Always have nasal congestion and sinus pain (no acute change). Possible urine smelling different. Generalized pain severity currently 8/10 most in her back. Similar symptoms when she had an infected seroma following TKA in September 2020. Currently her knee feels fine and no skin infection. Discharge Exam Patient awake alert appropriate. Cardiac exam is regular there are no murmurs or peripheral stigmata of endocarditis. Low back pain reportedly to her and with palpation is about his usual state not worsened from baseline Updated Medication List Medication Instructions Recorded Confirmed Type ferrous sulfate 325 mg (65 mg 325 mg PO QAM #30 tabs 11/10/18 07/27/23 History iron) tablet venlafaxine 100 mg tablet 100 mg PO TID #90 tabs 11/29/19 07/27/23 Rx acetaminophen 650 mg 650 mg PO BID PRN Pain 09/04/20 07/27/23 History tablet,extended release cyanocobalamin (vitamin B-12) 1,000 mcg PO QAM 09/04/20 07/27/23 History 1,000 mcg capsule diphenhydramine HCl 25 mg capsule 25 mg PO TID PRN Allergy Symptoms 09/04/20 07/27/23 History (Benadryl) hydroxyzine HCl 50 mg tablet 50 mg PO BID PRN itching 09/04/20 07/27/23 History ibuprofen 200 mg tablet 800 mg PO BID PRN Pain 09/04/20 07/27/23 History hydroxyzine HCl 50 mg tablet 100 mg PO HS PRN Itching 11/17/21 07/27/23 History albuterol sulfate 90 mcg/actuation 2 puff inhalation Q6H PRN 07/01/22 07/27/23 Rx aerosol inhaler shortness of breath or wheezing #6.7 grams cholecalciferol (vitamin D3) 25 1,000 unit PO QPM 07/15/22 07/27/23 History mcg (1,000 unit) tablet gabapentin 300 mg capsule 900 mg (3 x 300 mg) PO TID anxiety 12/09/22 07/27/23 Rx #270 caps omeprazole 10 mg capsule,delayed 10 mg PO QAM #90 caps 12/25/22 07/27/23 Rx release sumatriptan succinate 100 mg 100 mg PO .COMPLEX 90 days #27 tabs 03/29/23 07/27/23 Rx tablet (Imitrex) atorvastatin 10 mg tablet 10 mg PO QPM #90 tabs 06/01/23 07/27/23 Rx losartan 25 mg tablet 25 mg PO QAM #90 tabs 06/01/23 07/27/23 Rx metoprolol succinate 25 mg 25 mg PO QAM #90 tabs 06/01/23 07/27/23 Rx tablet,extended release 24 hr montelukast 10 mg tablet 10 mg PO QAM #90 tabs 06/01/23 07/27/23 Rx methocarbamol 500 mg tablet 500 mg PO Q12 PRN LBP #60 tabs 07/01/23 07/27/23 Rx ondansetron HCl 4 mg tablet 4 mg PO DAILY PRN nausea and 07/01/23 07/27/23 Rx vomiting #30 tabs hydrocodone 7.5 mg-acetaminophen 1 tab PO .5 times daily 07/09/23 07/27/23 History 325 mg tablet levothyroxine 137 mcg tablet 137 mcg PO QAM #30 tabs 07/22/23 07/27/23 Rx doxepin 75 mg capsule 75 mg PO HS 07/27/23 07/27/23 History mirtazapine 15 mg tablet 15 mg PO HS 07/27/23 07/27/23 History amoxicillin 875 mg-potassium 1 tab PO BID #10 tabs 07/29/23 Rx clavulanate 125 mg tablet Hospital Stay Data Consultations 07/27/23 16:17 ED Decision to Admit Stat Diagnostic Imagining Performed 07/27/23 13:13 CT abd pelvis IV con only Stat CT angio chest PE protocol Stat 07/27/23 13:16 CT head/brain wo con Stat Pending Results Patient Have Any Pending Studies at Discharge: No Discharge Instructions Given to Patient (Per Discharging Provider) Although you are very sick we never determine the exact nature of your source of infection. Did get better on antibiotics and we will going to continue these as an outpatient but do recommend close follow-up with your primary care provider for continued evaluation of possible sources of your infection Please return to the hospital immediately if you have a fever nausea vomiting or severe weakness Total Time Total Time Spent Total Time Spent (In Minutes): It required greater than 30 minutes to prepare this patient for discharge. Coding Level of Care Code 96175 INP/OBS DISCH >30 MIN Diagnoses Sepsis A41.9 Hypothyroidism E03.9 Hypertension I10
== END 2023-07-30 15:15 | disposition home or self-care (01) | DRG 872 ==
LOC: ED 12:48 → SUATTDRO 16:31 → EDINP 16:31 → 2S 18:55 → 3N 07-29 16:28
DX: E03.9 Hypothyroidism, unspecified; Z96.651 Presence of right artificial knee joint; Z86.711 Personal history of pulmonary embolism; I10 Essential (primary) hypertension; E88.89 Other specified metabolic disorders; Z79.890 Hormone replacement therapy; Z98.84 Bariatric surgery status; N39.0 Urinary tract infection, site not specified; E87.20 Acidosis, unspecified; Z88.2 Allergy status to sulfonamides; A41.9 Sepsis, unspecified organism